=== PATIENT | male | born 1995 | race Two or more races ===

== ENCOUNTER 2020-02-02 20:11 | Emergency (ER) | payer MEDICAID, SELFPAY ==
[2020-02-02 20:41] VITALS: BP 143/82; PULSE 80; RESP 15; TEMP 36.8; O2SAT 100; BMI 26.1
--- NOTE | 2020-02-02 20:54 | PC.NURSE ---
MD AT BEDSIDE FOR EVALUATION
--- NOTE | 2020-02-02 21:00 | ED.GENADULT ---
HPI - General Adult General Chief complaint: General Medical Stated complaint: HYPERTENSION Time Seen by Provider: 02/02/20 20:59 Source: patient Mode of arrival: ambulatory Limitations: no limitations History of Present Illness HPI narrative: This is a 24-year-old male who presents with over 1 year of intermittent left upper extremity tingling that he states radiates from his neck and is not associated with any traumatic event. He denies any dizziness, headaches, ear pain, dysphagia, shortness of breath, fevers, chills, weakness. Related Data Allergies Allergy/AdvReac Type Severity Reaction Status Date / Time divalproex sodium Allergy Unknown UNKNOWN Unverified 01/14/20 17:06 [From [facility]] Review of Systems Review of Systems: Pertinent positives and negatives as stated in the HPI. GEN: no fevers, chills, fatigue HEENT: no nasal congestion, sore throat, ear pain NEURO: no headache, dizziness, focal weakness PULM: no cough, shortness of breath CV: no chest pain, palpitations, LE edema ABD: no abdominal pain, nausea, vomiting, diarrhea : no dysuria, urgency, frequency SKIN: no rash ROS otherwise negative x 10 PMFSH Past Medical History Source: nursing notes reviewed Medical History No known health problems Surgical History Hx of eye surgery Social History Social History Alcohol intake: never Smoking Status: Never smoker Use of substances other than those prescribed or required for medical reasons: No Advance Directives: No Advance Directives Information Provided: Yes Physical Exam Vital Signs and I&O and Narrative: Vital Signs and I&O: Vital Signs Temp 98.2 F 02/02/20 20:41 Pulse 84 02/03/20 00:14 Resp 15 02/03/20 00:14 BP 146/82 H 02/03/20 00:14 Pulse Ox 98 02/03/20 00:14 Intake & Output 02/02/20 02/02/20 02/03/20 06:59 18:59 06:59 Weight 99.79 kg Body Mass Index 26.1 VITAL SIGNS: Reviewed. GENERAL: Well developed, well nourished, in no acute distress. HEAD: Normocephalic/atraumatic EYES: PERRLA, EOMI intact without pain, no nystagmus/pallor/icterus noted EARS: Ext canals without abnormality, TMs non-bulging and non-erythematous NOSE: Nares patent bilateral OROPHARYNX: no oral lesions noted, posterior pharynx clear and non-erythematous without noted tonsillar enlargement/erythema/exudates NECK: Supple, no adenopathy, Spurling's + LUNGS: Normal breath sounds. No adventitious sounds or accessory muscle use. SpO2<100> CARDIOVASCULAR: Regular rate and rhythm without noted murmurs, no JVD or lower extremity edema. ABDOMEN: Soft, non-tender, non-distended with bowel sounds. No rigidity. No guarding. No palpable masses or hernias noted MUSCULOSKELETAL: No tenderness, deformities, or effusions noted on gross inspection; LUE: fROM at shoulder/elbow with neurovascular intact distally EXTREMITIES: No cyanosis, clubbing or edema. SKIN: Inspection of the skin reveals no rashes, ulcerations, jaundice, pallor, or petechiae. NEUROLOGIC: Alert and oriented x 3. Strength and sensation to light touch were grossly intact x 4. Course Course Course Narrative: This is a 24-year-old male with history and clinical presentation most consistent with likely cervical radiculopathy or some form of neuropathy. After all investigations were completed it was noted that there were no acute findings which includes a negative chest x-ray. All results and findings were discussed with the patient bedside and he was strongly encouraged to follow-up with his primary care provider for further evaluation of the chronic symptoms. Medical Decision Making Lab Data Result diagrams: 02/02/20 22:27 02/02/20 22:27 Labs: Lab Results 02/02/20 02/02/20 Range/Units 22:27 22:27 WBC 9.5 (4.8-10.8) X10*3/uL RBC 5.54 (4.60-5.80) X10*6/uL Hgb 16.0 (14.0-18.0) g/dl Hct 47.2 (42-52) % MCV 85.2 (80-98) fL MCH 28.9 (27.0-33.0) pg MCHC 33.9 (31.0-36.0) g/dl RDW 11.9 (11.0-16.0) % Plt Count 286 (160-400) X10*3/uL MPV 10.1 (9.4-12.4) fL Immature Gran % (Auto) 0.1 (0.0-0.4) % Neut % (Auto) 62.6 (45-73) % Lymph % (Auto) 29.0 (20-40) % Taney % (Auto) 6.3 (2-11) % Eos % (Auto) 1.2 (0-4) % Baso % (Auto) 0.8 (0-2) % Neut # (Auto) 6.0 (2.0-8.3) X10*3/uL Lymph # (Auto) 2.8 (1.2-4.9) X10*3/uL Taney # (Auto) 0.6 (0.1-1.2) X10*3/uL Eos # (Auto) 0.1 (0.0-0.4) X10*3/uL Baso # (Auto) 0.1 (0.0-0.2) X10*3/uL Abs Immat Gran (auto) 0.01 (0.00-0.03) X10*3/uL Absolute Nucleated RBC 0.000 (0.0-0.012) X10*3/uL Nucleated RBC % (auto) 0.0 (0.0-0.2) /100WBC Sodium 140 (135-145) mmol/L Potassium 5.0 (3.3-5.1) mmol/l Chloride 104 (96-108) mmol/L Carbon Dioxide 28 (22-29) mmol/L Anion Gap 13 (12-20) BUN 21 H (9-16) mg/dL Creatinine 0.79 (0.5-1.4) mg/dL Estim Creat Clear Calc 178.5 Estimated GFR > 60 Random Glucose 82 (60-115) mg/dL Calcium 9.6 (8.4-10.2) mg/dL Total Bilirubin 0.9 (0.0-1.0) mg/dL AST 15 (5-37) U/L ALT 12 (0-40) U/L Alkaline Phosphatase 84 (39-117) U/L Total Protein 7.9 (6.5-8.0) g/dL Albumin 5.0 (3.5-5.0) g/dL TSH 1.00 (0.32-4.0) mIU/mL Discharge Plan Discharge Clinical Impression: Radiculopathy Qualifiers: Spinal region: cervical Qualified Code(s): M54.12 - Radiculopathy, cervical region Patient Disposition: Home, Self-Care Instructions: Cervical Radiculopathy (ED) Additional Instructions: 1. Tylenol 1000 mg, orally, every 6 hours as needed for symptom control. Do not exceed 4000 mg within 24 hours. 2. Ibuprofen 400 mg, orally with milk or food, every 6 hours as needed for symptom control. 3. You should follow-up with your primary care provider by calling the office tomorrow to set up an appointment for further outpatient evaluation and management. The patient and/or family acknowledge understanding of results (as applicable), diagnosis, treatment plan, need for follow up, and symptoms that should prompt a return to the emergency room. Referrals: Nuno Avendano MD [Primary Care Provider] - 2 days (Further evaluation and management of presumptive cervical radiculopathy) Interventions: ED Discharge Assessment Last Done: 02/03/20 00:08 Discharge Date/Time: 02/03/20 00:16
--- NOTE | 2020-02-02 21:01 | XR_ITS ---
EXAMINATION: XR CHEST CLINICAL INFORMATION: Cough COMPARISON: None TECHNIQUE: 2 views of the chest were obtained. FINDINGS: No significant abnormality is noted involving the heart, lungs, mediastinum, bony thorax or soft tissues. IMPRESSION: Unremarkable examination.
[2020-02-02 22:32] LABS: Basophils Absolute Auto 0.1 X10*3/uL (0.0-0.2); Basophils Percent Auto 0.8 % (0-2); Eosinophils Absolute Auto 0.1 X10*3/uL (0.0-0.4); Eosinophils Percent Auto 1.2 % (0-4); Hematocrit 47.2 % (42-52); Imm Gran Abs Auto 0.01 X10*3/uL (0.00-0.03); Imm Gran Pct Auto 0.1 % (0.0-0.4); Lymphocytes Absolute Auto 2.8 X10*3/uL (1.2-4.9); MANUAL DIFF FLAG NO; Mean Corpuscular HGB Conc 33.9 g/dl (31.0-36.0); Mean Corpuscular Hemoglobin 28.9 pg (27.0-33.0); Mean Corpuscular Volume 85.2 fL (80-98); Mean Platelet Volume 10.1 fL (9.4-12.4); Monocytes Absolute Auto 0.6 X10*3/uL (0.1-1.2); Monocytes Percent Auto 6.3 % (2-11); Neutrophils Percent Auto 62.6 % (45-73); Platelet Count 286 X10*3/uL (160-400); Red Blood Count 5.54 X10*6/uL (4.60-5.80); Red Cell Distribution Width 11.9 % (11.0-16.0); White Blood Count 9.5 X10*3/uL (4.8-10.8)
[2020-02-02 23:38] LABS: Alanine Aminotransferase 12 U/L (0-40); Alkaline Phosphatase 84 U/L (39-117); Anion Gap 13 (12-20); Aspartate Amino Transferase 15 U/L (5-37); Bilirubin Total 0.9 mg/dL (0.0-1.0); Blood Urea Nitrogen 21 mg/dL (9-16); Calcium 9.6 mg/dL (8.4-10.2); Carbon Dioxide 28 mmol/L (22-29); Chloride 104 mmol/L (96-108); Creatinine Clr Calc Pharmacy 178.5; Estimated Glomerular Filt Rate > 60; Glucose Random 82 mg/dL (60-115); Sodium 140 mmol/L (135-145); Total Protein 7.9 g/dL (6.5-8.0)
--- NOTE | 2020-02-02 23:40 | PC.NURSE ---
PATIENT AWAITING LAB RESULTS WELL ED PROVIDER RE-EVALUATION
[2020-02-03 00:14] VITALS: BP 146/82; PULSE 84; RESP 15; O2SAT 98
== END 2020-02-03 00:16 | disposition home or self-care (01) ==
PROVIDERS: Emergency Provider Student in an Organized Health Care Education/Training Program; PCP Internal Medicine
DX: M54.12 Radiculopathy, cervical region (principal); M54.2 Cervicalgia; I10 Essential (primary) hypertension; Z79.899 Other long term (current) drug therapy
CPT/HCPCS: 36415; 71046; 80053; 84443; 85025; 99283; 99284

== ENCOUNTER → 2020-03-10 13:55 | Outpatient (BNVA) | payer MEDICAID, SELFPAY | PROVIDERS: PCP Internal Medicine; Visit Provider Urology | DX: Z76.89 Persons encountering health services in other specified circumstances (principal) | CPT/HCPCS: 99202 ==

== ENCOUNTER 2020-03-22 07:29 | Outpatient (REF) | payer MEDICAID, SELFPAY ==
[2020-03-22 07:47] VITALS: BP 152/52; PULSE 72; RESP 16; TEMP 37; O2SAT 100
[2020-03-22 07:48] VITALS: BMI 26.6
--- NOTE | 2020-03-22 08:31 | P.HPSUR_ITS ---
Pre-Procedural Eval Section A The patient is an INPATIENT: No Changes since office visit: No Cold of Flu in the past 2 weeks, No New Medical Problems, No Changes in Medication and No Patient answered all questions The History & Physical has been completed within 30 days and I have reviewed it.: Yes Section B Chief Complaint: Epidermal Cyst Allergies: Allergies Allergy/AdvReac Type Severity Reaction Status Date / Time divalproex sodium Allergy Unknown UNKNOWN Unverified 01/14/20 17:06 [From [facility]] Plan Patient has been examined and remains a candidate for the planned procedure
--- NOTE | 2020-03-22 08:32 | PM.OP ---
Brief Operative Note Date of Service: 03/22/20 Pre-op diagnosis: penile inclusion cyst Post-op diagnosis: same Procedure: removal of cyst contents Surgeon: Jose Cavazos MD Anesthesia: local Estimated blood loss (mL): 0 Pathology: other Condition: stable Disposition: same day
[2020-03-22 08:39] VITALS: BP 149/97; PULSE 68; RESP 16; O2SAT 98
--- NOTE | 2020-03-22 08:39 | W.PM.OPN ---
Operative Note Operative Note Date of Service: 03/22/20 Narrative: PreOperative Diagnosis: Penile inclusion cyst Post Operative Diagnosis: Penile inclusion cyst Procedure: Removal of cyst greater than 1 cm Surgeon: Dr Jose Cavazos Anesthesia: Local Indications for procedure: Penile inclusion cyst in 24-year-old male. Procedure: After informed consent was verified the patient was brought to the operating room and placed in a supine position. Local anesthetic with epi injected over the inclusion cyst Small incision made with scalpel Calcification delivered along with smegma. It appears this is a broad penile skin bridge. Unable to drain. Approximately 1 cm removed Tolerated procedure well Pathology: Sent Drains: None
== END 2020-03-22 07:30 | disposition home or self-care (01) ==
LOC: HO.MS 07:29
PROVIDERS: PCP Internal Medicine; Visit Provider Urology
PROC: (CPT 11422; principal; 2020-03-22 08:00)
DX: L72.0 Epidermal cyst (principal)
CPT/HCPCS: 11422; 88304

== ENCOUNTER → 2020-04-27 12:45 | Outpatient (BNVA) | payer MEDICAID, SELFPAY | PROVIDERS: PCP Internal Medicine; Visit Provider Urology | DX: N48.89 Other specified disorders of penis (principal) | CPT/HCPCS: 99212 ==

== ENCOUNTER 2020-05-16 06:02 | Day surgery (SDC) | payer MEDICAID, SELFPAY ==
[2020-05-10 10:28] VITALS: BMI 26.1
--- NOTE | 2020-05-13 12:11 | P.CONAN_ITS ---
Documented by User: Angelica Prince 05/13/20 12:11 HPI - Anesthesia Eval Consult details Narrative: 24yo M for Penile Adhesions Lysis [facility] Past Medical History Medical History Hx of gynecomastia Surgical History Surgical History Hx of excision of mass Hx of excision of mass Hx of eye surgery Social History Social History Alcohol intake: never Smoking Status: Never smoker Use of substances other than those prescribed or required for medical reasons: No Advance Directives Information Provided: No Recently lost weight without trying: No Meds Allergies Allergy/AdvReac Type Severity Reaction Status Date / Time divalproex sodium Allergy Intermediate UNKNOWN Verified 05/16/20 06:32 [From [facility]] Home Medications Medication Instructions Recorded Confirmed Type No Known Home Meds 05/10/20 05/10/20 History Exam Exam Date and Time: May 13, 2020 1211 Height,Weight and Vital Signs: Height 6 ft 5 in Weight 99.79 kg Assessment and Plan Assessment Anesthesia Assessment: Chart Reviewed Documented by User: Ciarra Weeks 05/16/20 07:56 [facility] Past Medical History Medical History Hx of gynecomastia Surgical History Surgical History Hx of excision of mass Hx of excision of mass Hx of eye surgery Social History Social History Alcohol intake: never Smoking Status: Never smoker Use of substances other than those prescribed or required for medical reasons: No Advance Directives Information Provided: No Recently lost weight without trying: No Meds Allergies Allergy/AdvReac Type Severity Reaction Status Date / Time divalproex sodium Allergy Intermediate UNKNOWN Verified 05/16/20 06:32 [From [facility]] Home Medications Medication Instructions Recorded Confirmed Type No Known Home Meds 05/10/20 05/10/20 History Exam Airway Mallampati Class: II TM Dist: >3cm Neck ROM: Full Assessment and Plan Assessment Anesthesia Assessment: Anesthesia Plan Discussed and Chart Reviewed Final Anesthetic Review NPO: Yes ASA Class: I Final Preanesthetic Review: No Changes in Pt Med Stat, Meds/Allgs Chart Reviewed, Consent Obtained/Reviewed and Anes Risks/Benef Reviewed Patient Risk: Low Procedure Risk: Low Assessment/Block/Sedation in SS: Assess/Block/Sedation-SS Anesthetic Plan Anesthetic Plan: GA Disposition: Standard PACU
[2020-05-16 06:34] VITALS: BP 135/79; PULSE 61; RESP 18; TEMP 36.4; O2SAT 100
[2020-05-16] MEDS: ceFAZolin Sodium/Dextrose,Iso 2 GM/50 ML PIGGYBACK IV (06:43)
[2020-05-16] MEDS: Lactated Ringers 1,000 ML 100 ML IVCONT (06:43)
--- NOTE | 2020-05-16 07:43 | MHC.SHP ---
Pre-Procedural Eval Section B Chief Complaint: penis disorder Details of Present Illness: penile lysis adhesions Relevant Family History (Specify if Yes): No Relevant Social History: None Present Medications: None Medical History: No relevant PMH Allergies: Allergies Allergy/AdvReac Type Severity Reaction Status Date / Time divalproex sodium Allergy Intermediate UNKNOWN Verified 05/16/20 06:32 [From [facility]] Review of Systems Sugical H&P ROS: Negative: Constitution, Cardiovascular, Respiratory, Neurological, Psychiatric, Hem-Onc, Allergic/Immunologic, Gastrointestinal, Genitourinary, Musculoskeletal, Integumentary, Endocrine and Eyes/Ears/Nose/Throat Exam Surgical H&P Exam: Normal: HEENT, Normal: Heart, Normal: Lungs, Normal: Extremities, Normal: Abdomen, Normal: Skin and Normal: Neurological Plan Diagnosis/Plan: Unchanged I have reviewed the history and physical and performed a pertinent physical examination on my patient. No changes have occurred unless specified. Lysis of adhesions
--- NOTE | 2020-05-16 09:41 | PM.OP ---
Brief Operative Note Date of Service: 05/16/20 Pre-op diagnosis: penile adhesions Post-op diagnosis: same Procedure: lysis of penile adhesions Surgeon: Jose Cavazos MD Anesthesia: MAC Estimated blood loss (mL): 0 Pathology: none sent Condition: stable Disposition: same day
--- NOTE | 2020-05-16 09:42 | P.OP_ITS ---
Operative Note Operative Note Date of Service: 05/16/20 Narrative: PreOperative Diagnosis: Penile adhesions Post Operative Diagnosis: Penile adhesions dorsal Procedure: Lysis of penile adhesions Surgeon: Dr Jose Cavazos Anesthesia: Sedation Indications for procedure: This is a 24-year-old male. Had presented with discharge from the sulcus of his penis on the dorsum. It appeared to be a sebaceous cyst. At initial procedure with discovered to have an extensive penile adhesion across the dorsal aspect of penis with skin in oral forming a non discharging tunnel. Sent today for correction of the penile skin bridge Procedure: After informed consent was verified the patient was brought to the operating room and placed in a supine position. anesthesia was administered per protocol. The patient was prepped and draped in sterile fashion. Safety pause time-out performed. Antibiotics have been given. A skin bridge was identified. A probe was placed. It was blocked at the right hand end. Using sharp small with CIS is this skin bridge was divided. The proximal portion was identified and cleaned. The edges were recent own with a interrupted 4-0 chromic. The sulcus edge had a few areas of ooze controlled with cautery. Decision was made not to suture. Dressing was placed consisting of bacitracin, Huseyin, Coban. Should remain for 48 hours He tolerated procedure well was transferred in stable condition to [facility]. Pathology: None Drains: Known
[2020-05-16 09:45] VITALS: BP 109/53; PULSE 54; RESP 12; TEMP 36.1; O2SAT 98
[2020-05-16 10:00] VITALS: BP 123/68; PULSE 59; RESP 16; TEMP 36.2; O2SAT 99
--- NOTE | 2020-05-16 10:18 | HO.POSTANES ---
Post Anesthesia Evaluation Post Anesthesia Evaluation Vital Signs: Vital Signs Temp Pulse Resp BP Pulse Ox 05/16/20 10:00 97.1 F 59 16 123/68 99 05/16/20 09:45 96.9 F 54 12 109/53 L 98 05/16/20 06:34 97.6 F 61 18 135/79 100 Anesthesia: Monitored Mental Status: Awake Pain Control: Satisfactory Nausea/Vomiting: None Hydration: Adequate Anesthesia-Related Issues: No Anes. Related Issues
== END 2020-05-16 10:26 | disposition home or self-care (01) ==
PROVIDERS: PCP Internal Medicine; Visit Provider Urology
PROC: (CPT 54162; principal; 2020-05-16 08:10)
DX: N47.5 Adhesions of prepuce and glans penis (principal); Z87.438 Personal history of other diseases of male genital organs; Z98.890 Other specified postprocedural states; Z88.8 Allergy status to other drugs, medicaments and biological substances
CPT/HCPCS: 54162; J0690; J2250; J2405; J3010

== ENCOUNTER 2020-05-24 22:07 | Emergency (ER) | payer MEDICAID, SELFPAY ==
[2020-05-24 22:23] VITALS: BP 159/98; PULSE 120; RESP 18; TEMP 36.7; O2SAT 100; BMI 31.4
--- NOTE | 2020-05-24 22:36 | ED.GENADULT ---
HPI - General Adult General Chief complaint: Anxiety Stated complaint: STROKE? Time Seen by Provider: 05/24/20 22:31 Source: patient Mode of arrival: ambulatory Limitations: other (Patient is a vague historian.) History of Present Illness HPI narrative: This is a 24-year-old male according to the old record patient is healthy recently had urological procedure by Dr. Cavazos on exam there were who walked into the emergency room claiming that he is having stroke, patient refused to talk to triage nurse patient was triaged to room 21, when I get to the room patient is vague historian, talking in very low voice, easily get aggravated when he was asked to speak up so we can hear him, patient is covering his face with his hands and at the moment refusing to talk, because patient used offensive language security guards kept on the outside of the room, overall felt patient is acting psychotic, will move the patient to [facility] and give the patient a chance to calm down I will re-evaluate when patient is ready to talk. 11:00 patient was removed to the pod trying to give him quite room, it seem like voices, lytes, noises aggravate the patient. Patient is now talking to the staff and myself but refusing to give detailed history and why he is here. Give the patient sometimes to come down may need to use sedative. Related Data Previous Rx's Medication Instructions Recorded tramadol 50 mg PO Q6H PRN #14 tab 05/16/20 Allergies Allergy/AdvReac Type Severity Reaction Status Date / Time divalproex sodium Allergy Intermediate UNKNOWN Verified 05/16/20 06:32 [From [facility]] Review of Systems Review of Systems: Yes Unobtainable due to mental status PMFSH Past Medical History Medical History (Updated 05/24/20 @ 23:08 by Den Koch) Asperger's disorder Bipolar disorder Hx of gynecomastia Surgical History Hx of excision of mass Hx of excision of mass Hx of eye surgery Social History Social History Alcohol intake: never Smoking Status: Never smoker Advance Directives: No Advance Directives Information Provided: Yes Physical Exam Vital Signs: Vital Signs: Last Vital Signs Temp 98.1 F 05/24/20 22:23 Pulse 98 05/25/20 01:30 Resp 17 05/25/20 02:15 BP 127/76 05/25/20 01:30 Pulse Ox 97 05/25/20 01:30 Body Mass Index 31.4 Vital signs have been reviewed as normal and appeared to be correct. Blood pressure: Hypertensive. Heart rate: Tachycardic, Respiration rate normal. Temperature normal. Oxygen saturation normal. Const: Other: Well kempt, sitting in the chair covering his face with his hands, no eye contact, voice and to noise aggravate the patient. Patient is not cooperative. No physical exam at this point try to reassess later. 2:00 am Appearance: No acute distress. Head: Normal external exam. Normocephalic. Atraumatic. No Redd signs noted. No raccoon eyes noted Eyes: PERRLA. EOMI. Conjunctiva and sclera normal. Eyelids normal. ENT: EAC normal. TM's Normal. Pharynx normal. Uvula midline. Moist mucous membranes. No trismus noted. No drooling noted. No muffled voice noted. Neck: Normal inspection. Neck supple. FROM. No adenopathy. Thyroid Normal. No meningeal signs. No neck mass noted. CVS: Normal heart rate and rhythm. Heart sound normal. No murmurs noted. Pulses normal throughout. Respiratory: No respiratory distress. Painless inspiration. Breath sounds normal. No wheezes/rales/rhonchi noted. Chest nontender. No accessory muscle usage noted or decreased air movement noted. Abdomen: Soft and nontender. Bowel sounds normal in all 4 quadrants. No distention noted. No organomegaly noted. No visible injury noted. Back: No CVA tenderness. Full range of motion noted. Skin: Skin warm and dry. Normal skin color. Normal skin turgor. No rashes/lesions/lacerations noted. Extremities: No lower extremity edema. Neuro/ Psych: No motor deficit. No sensory deficit. Reflexes normal. Poor eye contact, tangential speech, no SI, no HI. Course Reevaluation(s) Reevaluation #1: Patient is not cooperative, with time of aggression, chemical restraining with 5 mg of Haldol IM/2 mg of Ativan IM was given. Will issue section 12. And get [facility] in evaluation. Time: :22 Reevaluation #2: This is 1 hour [id number] evaluation after chemical restraint. Patient now is leaving, vital signs were checked by MD appear stable, Time: 02:01 Medical Decision Making Lab Data Labs: Lab Results 05/25/20 05/25/20 Range/Units 00:54 00:54 Urine Color YELLOW Urine Appearance CLEAR Urine pH 5.5 (5.0-8.0) Ur Specific Dell[place] >= 1.030 H (1.005-1.025) Urine Protein TRACE (NEG-TRACE) MG/DL Urine Glucose (UA) NEG (NEG) MG/DL Urine Ketones NEG (NEG) MG/DL Urine Blood TRACE (NEG) Urine Nitrite NEG (NEG) Ur Leukocyte Esterase NEG (NEG) Urine RBC 1-4 (0) /HPF Urine WBC 1-4 (0-4) /HPF Ur Squamous Epith Cells TRACE /LPF Urine Bacteria TRACE /LPF Urine Mucus 1+ /LPF Urine Opiates Screen Not Detected (Not Detect) Ur Barbiturates Screen Not Detected (Not Detect) Ur Phencyclidine Scrn Not Detected (Not Detect) Ur Amphetamines Screen Not Detected (Not Detect) U Benzodiazepines Scrn Not Detected (Not Detect) Urine Cocaine Screen Not Detected (Not Detect) U Marijuana (THC) Screen Not Detected (Not Detect) Discharge Plan Discharge Prescriptions: No Action tramadol 50 mg tablet 50 mg PO Q6H PRN (Reason: pain (scale score 4-6)) Qty: 14 RF: 0
--- NOTE | 2020-05-24 23:08 | PC.NURSE ---
pt mother Kary phone number [phone]
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
[2020-05-25] VITALS (7 sets, daily range): BP systolic 127–136; BP diastolic 76–79; PULSE 80–98; RESP 17–19; TEMP 36.8; O2SAT 97–100
--- NOTE | 2020-05-25 00:39 | PC.NURSE ---
Patient after long therapeutic conversation and with security support, agreed to the knife changer process, provided urine sample, [facility] faxed/called/spoke with Abigail/confirmed receipt of referral, care team is with patient currently, will continue to monitor.
[2020-05-25] MEDS: LORazepam 2 MG/ML VIAL IM (01:15)
[2020-05-25] MEDS: diphenhydrAMINE HCL 50 MG/ML VIAL 25 MG IM (01:15)
[2020-05-25] MEDS: Haloperidol Lactate 5 MG/ML VIAL IM (01:16)
[2020-05-25 01:20] LABS: Glucose Urine UA NEG (NEG); Leukocyte Esterase Urine NEG (NEG); Nitrite Urine NEG (NEG); PH 5.5 (5.0-8.0); Specific Gravity - Urine >= 1.030 (1.005-1.025); Urine Blood TRACE (NEG); Urine Ketones NEG (NEG); Urine Protein TRACE MG/DL (NEG-TRACE)
[2020-05-25 01:22] LABS: Appearance Urine CLEAR; Color Urine YELLOW
[2020-05-25 01:35] LABS: Bacteria Urine TRACE /LPF; Mucus Urine 1+ /LPF; Squamous Epithelial Cell Urine TRACE /LPF
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
[2020-05-25 02:08] LABS: Amphetamine Screen Urine Not Detected (Not Detect); Barbiturates, Urine Not Detected (Not Detect); Benzodiazepines Screen Urine Not Detected (Not Detect); Cannabinoid Screen Urine Not Detected (Not Detect); Cocaine Screen Urine Not Detected (Not Detect); Opiate Screen Urine Not Detected (Not Detect); Phencyclidine Screen Urine Not Detected (Not Detect)
--- NOTE | 2020-05-25 09:14 | PC.NURSE ---
PT AWAKE AND ASKING TO LEAVE AND TO HAVE BELONINGS RETURNED TO HIM, SECT 12 EXPLAINED AND INFORMED THAT HE COULD NOT LEAVE AND THAT WE CANNOT GIVE HIS CLOTHES BACK, PT THEN CALLED HIS MOTHER TO PICK HIM UP IN 5 MIN, SHE CALLED US TO CONFIRM BEFORE COMING, FRANSICO VP STRATEGIC PLANNING TO POD TO EXPLAIN, [facility] CONTACTED TO GET ETA AND THEY STATE AROUND 12 OR A LITTLE AFTER . THIS WAS RELAYED TO THE PT, PT VOICED DISPLEASURE W BEING HELD AGAINST HIS WILL
--- NOTE | 2020-05-25 11:15 | MHC.CARE ---
9:40 am, call to [facility] about assessing this patient, spoke to assembly room supervisor Olu who confirmed that a clinician cannot get to the hospital until at least noon or later. CARE Team will evaluate the patient if [facility] calls [facility] and follows the necessary steps for deferring cases. He agreed to this plan and will call the insurance company. Olu called back and reported that Alvina at [facility] was notified. CARE Team met with patient who is clear for discharge home, written assessment to follow.
--- NOTE | 2020-05-25 11:53 | PM.PSYCN ---
History of Present Illness Date of Service: 05/25/2020 Chief Complaint: STROKE? Reason for Consult: med eval Requesting physician: Oleksandr Callahan Discussed with referring provider: No Sources of Information: patient interviewed and chart reviewed Additional Sources of Information: collateral from mother, Kary [facility] Narrative: Patient is a 24 year old male with reported history of autism spectrum disorder, currently in the Behavioral area of the emergency department after presenting yesterday reporting he believed he was having a stroke. He was evaluated and medically cleared and transferred to the [facility] area. Per chart review it appears patient was very anxious, guarded, and difficult to engage. He was seen by the care team, please see that note for additional documentation. This morning he is much less anxious and asking to go home. This proposal lead writer spoke to patient's mother, Kary, for reports that patient has been quite stable for many years. She reports he was diagnosed with Asperger's at a young age and per her report also bipolar disorder. She states he lived at a residential program up until about 10 years ago when he moved back home, and has been doing very well since. She states he has not taken any medications for over 10 years, but he has been stable. 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 She reports that during the pandemic he has been isolative, keeping to himself, but his behaviors prior to presenting in the emergency department were completely brand new. She reports that Saturday of last week he had a surgery, she is unsure of the details of the surgery as she states he is very private. She also reports that he started taking a pain medication following the surgery but she is unsure what that is. Patient seen very briefly by this proposal lead writer in the Behavioral Health area of the ED, he was awake alert sitting at the edge of his bed and asking when he could go home. He denies any feelings of anxiety, thoughts of hurting himself or others, restating ?I just Wanna go home?. Past Psychiatric History: As reported in HPI Medical Evaluation Reviewed: Yes Review of Systems Constitutional: Reports as per [facility] and Reports no additional constitutional complaints PMFSH Medical History Asperger's disorder Bipolar disorder Hx of gynecomastia Surgical History Hx of excision of mass Hx of excision of mass Hx of eye surgery Diagnostics Vital Signs (24Hr): Vital Signs - 24 hr 05/24/20 22:23 05/25/20 01:15 05/25/20 01:30 Temperature 98.1 F Pulse Rate 120 H 98 Respiratory Rate 18 19 19 Blood Pressure 159/98 H 127/76 Pulse Oximetry 100 97 05/25/20 01:45 05/25/20 02:00 05/25/20 02:15 Temperature Pulse Rate Respiratory Rate 18 18 17 Blood Pressure Pulse Oximetry 05/25/20 06:00 05/25/20 09:01 Temperature 98.2 F Pulse Rate 80 Respiratory Rate 18 Blood Pressure 136/79 Pulse Oximetry 100 Body Mass Index 31.4 Labs Labs: Laboratory Results - last 48 hr 05/25/20 05/25/20 00:54 00:54 Urine Color YELLOW Urine Appearance CLEAR Urine pH 5.5 Ur Specific [place] >= 1.030 H Urine Protein TRACE Urine Glucose (UA) NEG Urine Ketones NEG Urine Blood TRACE Urine Nitrite NEG Ur Leukocyte Esterase NEG Urine RBC 1-4 Urine WBC 1-4 Ur Squamous Epith Cells TRACE Urine Bacteria TRACE Urine Mucus 1+ Urine Opiates Screen Not Detected Ur Barbiturates Screen Not Detected Ur Phencyclidine Scrn Not Detected Ur Amphetamines Screen Not Detected U Benzodiazepines Scrn Not Detected Urine Cocaine Screen Not Detected U Marijuana (THC) Screen Not Detected Mental Status Exam Mental Status Exam Patient Appearance: Well Grooomed Patient Orientation: Person, Place, Time and Situation Level of Consciousness: Awake and Alert Patient Behavior: Appropriate and Guarded Mood Description: Calm Affect Description: Calm Ability to Follow Directions: Excellent Speech Pattern: Clear Hallucinations: None Thought Process: Goal Oriented Thought Content: positive for Intact and positive for [place] Judgement: Fair Medications Allergies Allergies Allergy/AdvReac Type Severity Reaction Status Date / Time divalproex sodium Allergy Intermediate UNKNOWN Verified 05/16/20 06:32 [From [facility]] Assessment & Plan Assessment & Plan (1) Acute anxiety: Status: Acute Code(s): F41.9 - Anxiety disorder, unspecified Recommendations: Discussed case with care team, appears patient may have been experiencing symptoms of an acute anxiety attack possibly related to taking his pain medications which are new to him Has been appropriate, remained in behavioral control, and requesting to go home. Denies any thoughts of harming himself or others. No medication recommendations at this time Per care team patient also declined any referrals to behavioral health resources Greater than 50% of the session was spent on counseling and/or coordination of care
--- NOTE | 2020-05-28 11:30 | HO.PSYCHPN ---
Subjective Subjective Date of Service: 05/28/20 Reason For Visit: STROKE? Diagnostics Vital Signs (24Hr): Body Mass Index 31.4 Medications Allergies Allergies Allergy/AdvReac Type Severity Reaction Status Date / Time divalproex sodium Allergy Intermediate UNKNOWN Verified 05/16/20 06:32 [From [facility]] Assessment & Plan Greater than 50% of the session was spent on counseling and/or coordination of care
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
== END 2020-05-25 11:15 | disposition home or self-care (01) ==
PROVIDERS: Emergency Provider Emergency Medicine
DX: F41.9 Anxiety disorder, unspecified (principal); F84.5 Asperger's syndrome; F31.9 Bipolar disorder, unspecified; F43.10 Post-traumatic stress disorder, unspecified
CPT/HCPCS: 80307; 81001; 96372; 99284; 99285; J1200; J2060

== ENCOUNTER 2020-05-27 11:31 | Emergency (ER) | payer MEDICAID, SELFPAY ==
[2020-05-27 11:46] VITALS: BP 154/95; PULSE 74; RESP 18; TEMP 36.4; O2SAT 100; BMI 26.1
[2020-05-27 11:49] VITALS: BP 154/95; PULSE 74; RESP 18; TEMP 36.4; O2SAT 100
--- NOTE | 2020-05-27 12:14 | ED.PSYCH ---
HPI - Psych General Chief Complaint: Psychiatric Symptoms Stated Complaint: psych eval Time Seen by Provider: 05/27/20 12:04 Source: EMS Mode of arrival: ambulatory Limitations: no limitations History of Present Illness HPI Narrative: Patient is a 24-year-old male with a past medical history of Asperger's, bipolar who was just evaluated in this ED 2 days ago. He called EMS today to bring him to the emergency department because he would like to speak with crisis. He states Dr. Cavazos gave him some medication a couple of days ago, he is unsure of the name, but when he took the medication it made his left arm and the left side of his body go numb. He says he threw away the medication and has not taken in 2 days but still says he feels numb. He also states she is feeling like a sensory overload but denies SI or HI. He has no other physical complaints at this time besides the numbness. He cannot explain what he needs from os but is just asking for a psychiatric evaluation. Related Data Home Medications Medication Instructions Recorded Confirmed No Known Home Meds 05/27/20 05/27/20 Allergies Allergy/AdvReac Type Severity Reaction Status Date / Time divalproex sodium Allergy Intermediate UNKNOWN Verified 05/16/20 06:32 [From [facility]] Review of Systems Review of Systems: Yes all other systems are reviewed and are negative Neurologic: Denies Abnormal speech present PMFSH Past Medical History Medical History Asperger's disorder Bipolar disorder Hx of gynecomastia Surgical History Hx of excision of mass Hx of excision of mass Hx of eye surgery Social History Social History Alcohol intake: former Smoking Status: Never smoker Smoked in Last 30 Days: No Use of substances other than those prescribed or required for medical reasons: No Advance Directives: Yes Advance Directives Information Provided: Yes Advance Directives on File: No Physical Exam Vital Signs: Vital Signs: Last Vital Signs Temp 97.5 F 05/27/20 11:49 Pulse 74 05/27/20 11:49 Resp 18 05/27/20 11:49 BP 154/95 H 05/27/20 11:49 Pulse Ox 100 05/27/20 11:49 Body Mass Index 26.1 Const: General: cooperative, healthy appearing, comfortable, no acute distress and well developed Nutritional Appearance: average body habitus and well nourished Orientation/consciousness: patient oriented x3 HENMT: Head: Yes normal to inspection Ears: hearing grossly normal bilaterally General nose exam: Normal external nose present Face and sinus: Yes normal facial exam and Yes face symmetric Mouth: Normal oral and palatal mucosa present Eyes: General: appearance normal, both eyes and all related structures EOM: EOMs intact bilaterally Neck: Neck: Yes normal visual inspection, Yes full ROM, Yes trachea midline and Yes supple Resp: Effort & Inspection: normal respiratory effort and able to speak in complete sentences Skin: General skin exam: no rashes or lesions noted Neuro: General: patient oriented x3 Cognition (Neuro): normal cognition Speech: No Abnormal speech present Extrem: General: Yes normal to inspection Psych: Appearance: well kempt Speech and movement: Clear speech present Affect: Blunted affect present Attitude: cooperative Thought process: Normal thought process present Thought content: Normal thought content present Insight: Good insight present (Psych) Judgement: Good judgement present (Psych) Course Course Course Narrative: 24-year-old male with past medical history of Asperger's and bipolar requesting a psychiatric evaluation. Physical exam reveals no abnormalities in patient has no other complaints besides numbness in his left arm that he attributes as a side effect to the medication he took 2 days ago. Unknown medication. Will request care team consult 1pm care team consult done, they recommended a crisis consult as they spoke with the patient's mother and said he has not been eating and drinking normally, they feel he also has disorganized thoughts, he is also not on meds for bipolar or Asperger's. Crisis consult placed 3pm care team says patient will get faster placement if he goes directly to [facility] on himself. Care team spoke with patient's mother, she is happy to take him up and bring him there herself. [facility] will then place him at an inpatient facility if needed, and he will come back to the ED for that if necessary. Will discharge patient to the care of his mother. MDM - Psych Restraints Face to Face Assessment: Face to Face Assessment: Reaction To: [] Medical Condition: [] Behavioral State: [] Continued Need: [] Discharge Plan Discharge Clinical Impression: Acute psychosis Bipolar disorder Qualifiers: Active/Remission status: currently active Current bipolar episode type: depressed Current episode severity: mild Qualified Code(s): F31.31 - Bipolar disorder, current episode depressed, mild Patient Disposition: Home, Self-Care Instructions: Brief Psychotic Disorder (ED) Additional Instructions: Discharging patient to the care of his mother so she made drive him directly to [facility] to seek placement at an inpatient facility. Prescriptions: No Action No Known Home Meds RF: 0 Referrals: Nuno Avendano MD [Primary Care Provider] - 2 days
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
--- NOTE | 2020-05-27 13:43 | PC.NURSE ---
[facility] faxed and called.
--- NOTE | 2020-05-27 13:57 | PC.NURSE ---
PT appears to be responding internally, talking and laughing while alone in his room.
== END 2020-05-27 15:56 | disposition home or self-care (01) ==
PROVIDERS: Emergency Provider Emergency Medicine; PCP Internal Medicine
DX: F31.31 Bipolar disorder, current episode depressed, mild (principal); Z79.899 Other long term (current) drug therapy
CPT/HCPCS: 99284; 99285

== ENCOUNTER 2020-05-27 18:41 | Inpatient (IN) | payer OTHER, MEDICAID, SELFPAY ==
[2020-05-27 18:49] VITALS: RESP 18; BMI 26.1
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
[2020-05-27 21:14] VITALS: BP 134/85; PULSE 87; RESP 18; TEMP 36.8; O2SAT 99
[2020-05-27] MEDS: LORazepam 1 MG TABLET 2 MG PO (21:22)
[2020-05-27] MEDS: diphenhydrAMINE HCL 25 MG TABLET 50 MG PO (21:22)
[2020-05-27] MEDS: HaloperidoL 5 MG TABLET PO (21:22)
--- NOTE | 2020-05-27 21:30 | PC.NURSE ---
Patient psychotic, hyper-sexual, intrusive, disruptive, little to no redirect-ability, provider notified/ordered Ativan 2 mg tablet, Benadryl 50 mg tablet, and Haldol 5 mg tablet, patient accepted with little prompting effort, patient needs continuos redirection, will continue to monitor.
--- NOTE | 2020-05-27 22:53 | PC.NURSE ---
Patient currently in his room, wide awake, continuously pushing call light, needs continuos redirection and supervision, making sexually inappropriate comments, will continue to monitor.
--- NOTE | 2020-05-28 07:13 | PC.NURSE ---
Report received from SANDRA Long. Pt resting, resp unlabored.
--- NOTE | 2020-05-28 09:11 | PC.NURSE ---
Pt alert, appears disoriented, requiring re-orientation.
[2020-05-28 09:58] LABS: IDNOW Serial# 9DD0AD1C
[2020-05-28 09:59] LABS: COVID-19 Test Negative (Negative)
[2020-05-28 10:13] VITALS: BP 123/69; PULSE 97; TEMP 36.7; O2SAT 100
--- NOTE | 2020-05-28 10:15 | PC.NURSE ---
Consult called to [facility].
[2020-05-28 10:16] LABS: MANUAL DIFF FLAG NO
--- NOTE | 2020-05-28 10:17 | PC.NURSE ---
[facility] in to evaluate
[2020-05-28 10:18] LABS: Basophils Absolute Auto 0.1 X10*3/uL (0.0-0.2); Basophils Percent Auto 0.6 % (0-2); Eosinophils Absolute Auto 0.1 X10*3/uL (0.0-0.4); Eosinophils Percent Auto 0.9 % (0-4); Hematocrit 50.8 % (42-52); Hemoglobin 17.2 g/dl (14.0-18.0); Imm Gran Abs Auto 0.01 X10*3/uL (0.00-0.03); Imm Gran Pct Auto 0.1 % (0.0-0.4); Lymphocytes Absolute Auto 1.6 X10*3/uL (1.2-4.9); Lymphocytes Percent Auto 19.6 % (20-40); Mean Corpuscular HGB Conc 33.9 g/dl (31.0-36.0); Mean Corpuscular Hemoglobin 28.8 pg (27.0-33.0); Mean Corpuscular Volume 84.9 fL (80-98); Mean Platelet Volume 10.1 fL (9.4-12.4); Monocytes Absolute Auto 0.5 X10*3/uL (0.1-1.2); Monocytes Percent Auto 6.5 % (2-11); Neutrophils Absolute Auto 5.8 X10*3/uL (2.0-8.3); Neutrophils Percent Auto 72.3 % (45-73); Platelet Count 325 X10*3/uL (160-400); Red Blood Count 5.98 X10*6/uL (4.60-5.80); Red Cell Distribution Width 12.5 % (11.0-16.0)
[2020-05-28 10:48] LABS: Ethanol < 10 mg/dL
[2020-05-28 10:52] LABS: Alanine Aminotransferase 27 U/L (0-40); Albumin Level 4.9 g/dL (3.5-5.0); Alkaline Phosphatase 86 U/L (39-117); Anion Gap 13 (12-20); Aspartate Amino Transferase 32 U/L (5-37); Bilirubin Total 1.8 mg/dL (0.0-1.0); Blood Urea Nitrogen 17 mg/dL (9-16); Calcium 9.6 mg/dL (8.4-10.2); Carbon Dioxide 28 mmol/L (22-29); Chloride 104 mmol/L (96-108); Creatinine Clr Calc Pharmacy 148.5; Estimated Glomerular Filt Rate > 60; Glucose Random 93 mg/dL (60-115); Potassium 4.1 mmol/L (3.3-5.1); Sodium 141 mmol/L (135-145); Total Protein 7.9 g/dL (6.5-8.0)
--- NOTE | 2020-05-28 11:00 | PC.NURSE ---
Pt awake, alert. sitting at desk. Pt aware that urine sample is needed, but has been cooperative w/ care.
[2020-05-28 11:50] LABS: Glucose Urine UA NEG (NEG); Leukocyte Esterase Urine NEG (NEG); Nitrite Urine NEG (NEG); Specific Gravity - Urine 1.015 (1.005-1.025); Urine Blood NEG (NEG); Urine Ketones NEG (NEG); Urine Protein NEG (NEG-TRACE)
[2020-05-28 12:00] VITALS: RESP 20
[2020-05-28 12:08] LABS: Appearance Urine CLEAR; Color Urine YELLOW
--- NOTE | 2020-05-28 12:13 | PC.NURSE ---
Pt evaluated by Dr. Hale, medication recommendations reviewed.
[2020-05-28 12:14] LABS: Amphetamine Screen Urine Not Detected (Not Detect); Barbiturates, Urine Not Detected (Not Detect); Benzodiazepines Screen Urine Not Detected (Not Detect); Cannabinoid Screen Urine Not Detected (Not Detect); Cocaine Screen Urine Not Detected (Not Detect); Opiate Screen Urine Not Detected (Not Detect); Phencyclidine Screen Urine Not Detected (Not Detect)
[2020-05-28 12:18] LABS: RBC Urine 0 /HPF (0); WBC Urine 0 /HPF (0-4)
--- NOTE | 2020-05-28 12:23 | PC.NURSE ---
Pt resting in room, sitting at desk. Reports feeling a little overwhelmed w/ sensory stimulation. Pt states that he could use ear plugs. Care team notified, will look for ear plugs.
--- NOTE | 2020-05-28 13:20 | PC.NURSE ---
Pt sitting in room, at desk. Pt pleasant, conversing with staff when engaged.
--- NOTE | 2020-05-28 14:08 | PC.NURSE ---
Pt awake, sitting at desk, no concerns reported.
--- NOTE | 2020-05-28 15:17 | PC.NURSE ---
Per [facility] pt appearing fincreasingly anxious. In to evaluate, pt denies any concerns at this time and does not feel he needs medication for anxiety. Mother called, pt aware.
--- NOTE | 2020-05-28 15:38 | PC.NURSE ---
Report received. Pt using the bathroom at current. Calm and cooperative. No complaints at this time.
[2020-05-28] MEDS: LORazepam 1 MG TABLET PO (16:19)
--- NOTE | 2020-05-28 16:22 | PC.NURSE ---
Pt reporting anxiety, sensitivity to sound. Given ativan 1 MG PO, effect pending.
--- NOTE | 2020-05-28 17:07 | PC.NURSE ---
Ativan appears to have had some effect. Currently calm, resting in chair with head down on desk, lights off, door closed.
[2020-05-28 18:10] VITALS: BP 150/86; PULSE 97; RESP 18; TEMP 36.8; O2SAT 98
--- NOTE | 2020-05-28 19:04 | PC.NURSE ---
Patient sitting in his room, quietly, watching TV, no distress reported, will continue to monitor.
[2020-05-28 21:45] VITALS: BP 146/75; PULSE 99; RESP 20; TEMP 36.8; O2SAT 99
[2020-05-28] MEDS: diphenhydrAMINE HCL 25 MG TABLET 50 MG PO (23:27)
[2020-05-28] MEDS: HaloperidoL 5 MG TABLET PO (23:28)
[2020-05-28] MEDS: LORazepam 1 MG TABLET 2 MG PO (23:28)
[2020-05-28 23:48] VITALS: BP 147/85; PULSE 85; RESP 17; TEMP 36.6; O2SAT 98
--- NOTE | 2020-05-29 00:05 | PC.NURSE ---
Patient was observed self dialoguing in his room, requested medication for anxiety, thought process paranoid, response delayed & tangential, behavior escalating, provider notified/ordered Ativan 2 mg, Benadryl 50mg, and Haldol 5 mg PO/administered as ordered/patient compliant, will continue to monitor.
--- NOTE | 2020-05-29 07:38 | PC.NURSE ---
Report received from SANDRA Long. Pt resting, resp unlabored.
[2020-05-29 08:56] VITALS: BP 150/99; PULSE 97; TEMP 36.2; O2SAT 100
--- NOTE | 2020-05-29 08:58 | PC.NURSE ---
Pt awoke, appears drowsy but sitting up, eating meal, asking when he fell asleep.
--- NOTE | 2020-05-29 10:23 | PC.NURSE ---
Pt awake, eye contact minimal, responses careful, measured, clear. Pt declined to shower or have his linens changed.
--- NOTE | 2020-05-29 11:58 | PC.NURSE ---
Pt awake, focused on time and on date, frequently coming out of room to clarify time and date.
[2020-05-29 12:00] VITALS: RESP 20
[2020-05-29] MEDS: LORazepam 0.5 MG TABLET PO ×2 (15:43→21:44)
--- NOTE | 2020-05-29 15:45 | PC.NURSE ---
Pt appears increasingly anxious, affected by sound and appears to have increasingly difficult time concentrating. Pt educated re: lorazepam and willing to take.
--- NOTE | 2020-05-29 15:51 | PC.NURSE ---
Report given to SANDRA Ahn on [facility].
--- NOTE | 2020-05-29 16:37 | PC.NURSE ---
Pt reports feeling less anxious after receiving ativan. Pt called mother, left voicemail. Attempted to obtain earplugs for pt, called [facility] and supervisor fabrication department- none available at this time.
[2020-05-29 17:11] VITALS: BP 156/96; PULSE 99; RESP 20; TEMP 36.8; O2SAT 99
--- NOTE | 2020-05-29 17:34 | PC.NURSE ---
Pt aware that he will be transferred to , asking questions at times, currently asking when he will be transferred.
[2020-05-29 18:00] VITALS: BP 164/81; PULSE 85; TEMP 36.6
--- NOTE | 2020-05-29 18:14 | PC.NURSE ---
Pt in room, awaiting transfer. Mother brought in eye covering and ear plugs- pt using eye pad.
--- NOTE | 2020-05-29 18:46 | PC.NURSE ---
CARE team in with security to transfer pt to [facility]. Pt alert, cooperative w/ transfer.
[2020-05-29] MEDS: hydrOXYzine HCL 25 MG TABLET PO (21:44)
--- NOTE | 2020-05-29 22:05 | PC.ADMIT ---
PT is a 24 year old male, Salvadorean speaking who [place] [facility] [place] aprrox 1730 on a cv status. pt is covid -, utox-. Pt presented disorganized, He presents as delusional with regards to belief he is in love with and in a relationship with a female whom he attended high school with, and has never seen since. Mother reports he has been sleeping in several weeks as well as has not been eating resulting significant weight lose. Pt diagnosed with unspecified schizophrenia spectrum. Pt denied Si/HI with no pain. Dr. Hale called and notified for orders. pt on 5min checks. start treatment and monitor safety checks.
[2020-05-29] MEDS: traZODone HCL 50 MG TABLET PO (22:30)
[2020-05-30 11:14] VITALS: BP 140/73; PULSE 90; RESP 16; TEMP 36.6; O2SAT 99
[2020-05-30] MEDS: LORazepam 1 MG TABLET PO (16:51)
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
[2020-05-30 18:00] VITALS: BP 142/91; PULSE 99; TEMP 37.1
[2020-05-30] MEDS: LORazepam 0.5 MG TABLET PO (20:23)
[2020-05-30] MEDS: OLANZapine 5 MG TABLET PO (20:23)
[2020-05-30] MEDS: hydrOXYzine HCL 25 MG TABLET PO (20:24)
[2020-05-30] MEDS: traZODone HCL 50 MG TABLET PO (20:28)
--- NOTE | 2020-05-31 08:00 | ECG_ITS ---
Test Reason : BIPOLAR DISORDER Blood Pressure : / mmHG Vent. Rate : 080 BPM Atrial Rate : 080 BPM P-R Int : 162 ms QRS Dur : 100 ms QT Int : 390 ms P-R-T Axes : 065 063 020 degrees QTc Int : 449 ms Normal sinus rhythm with sinus arrhythmia Normal ECG When compared with ECG of 12-DEC-2017 19:21, No significant change was found Referred By: Anne Marie Sapp Electronically Signed By:ADITYA VERGARA MD
[2020-05-31] MEDS: LORazepam 0.5 MG TABLET PO ×2 (08:50→21:00)
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
[2020-05-31 18:00] VITALS: BP 148/80; PULSE 74; TEMP 36.7
[2020-05-31] MEDS: lamoTRIgine 25 MG TABLET PO (20:59)
[2020-05-31] MEDS: OLANZapine 2.5 MG TABLET PO (21:00)
[2020-06-01 06:20] VITALS: BP 135/66; PULSE 88; RESP 16; TEMP 36.1; O2SAT 100
[2020-06-01] MEDS: LORazepam 0.5 MG TABLET PO ×2 (08:02→22:09)
--- NOTE | 2020-06-01 08:28 | HO.PSYCHPN ---
Subjective Subjective Date of Service: 06/01/20 Reason For Visit: anxiety/bipolar sx Subjective Notes: 3 Day (06/03/20) Interim History: TDN 06/03/20. Family hopes he will reconsider, retract. Pt visible on the unit, perseverative with poor memory, some thought blocking. Focus on [employer] and what occurred. Pentecostal pain due to meds he reports to some, reports no pain to others. Brief, milieu interactions with pt where he spoke of medicine, his dislike due to his experience and his regret for behaviors upon admission to hospital. Two interactions where pt smiled, laughed and reported mild relief. Medication Compliance: Yes Side effects from medications: Yes (reports judaism pain) Attending Groups: Yes Review of Systems Review of Systems Yes all other systems are reviewed and are negative (denies) Reports behavioral changes and Reports confusion Psychiatric: Reports anxiety, Reports behavioral changes, Reports confusion, Reports depression, Reports difficulty concentrating, Reports mood swings, Reports paranoia and Reports hallucinations Mental Status Exam Mental Status Exam Patient Appearance: Disheveled Patient Orientation: Person and Place Level of Consciousness: Awake and Alert Patient Behavior: Guarded, Talkative, Cooperative, Suspicious, Restless, Wandering, Anxious, Fearful, Distractible and Good Eye Contact Mood Description: Anxious Affect Description: Anxious Patient Cognition Impaired: Yes Ability to Follow Directions: Good Speech Pattern: Spontaneous Speech Memory Description: Remote Impaired, Immediate Impaired and Episodic Impaired Hallucinations: None (denies) Delusions: Being Controlled, Paranoid Ideation and Present Thought Process: Illogical, Distracted and Rumination Thought Content: positive for Flight of Ideas, positive for Circumstantial, positive for Perseveration and positive for Tangential Depressive Symptoms: Increased Anxiety, Unhappiness, Loss of Energy and Difficulty Concentrating Abnormal Motor Activity Signs and Symptoms: Restlessness Judgement: Poor Diagnostics Vital Signs (24Hr): Vital Signs - 24 hr 05/31/20 18:00 06/01/20 06:20 Temperature 98.1 F 96.9 F Pulse Rate 74 88 Respiratory Rate 16 Blood Pressure 148/80 H 135/66 Pulse Oximetry 100 Body Mass Index 26.1 Labs Results: 05/28/20 10:10 05/28/20 10:10 Medications Medications Current Medications Generic Name Dose Route Start Last Admin Trade Name Freq PRN Reason Stop Dose Admin Acetaminophen 650 mg 05/29/20 17:08 Acetaminophen 325 Mg Tablet PO Q6H PRN Headache/Pain Mild Scale (1-3) Al Hydroxide/Mg Hydroxide 30 ml 05/29/20 17:08 Magnesium Hydrox/Alum Hydrox 30 Ml Oral.Susp PO Q6H PRN Heartburn/Nausea Benztropine Mesylate 0.5 mg 05/30/20 16:13 Benztropine Mesylate 0.5 Mg Tablet PO TID PRN Extrapyramidal Effects Hydroxyzine HCl 25 mg 05/29/20 17:08 05/30/20 20:24 Hydroxyzine Hcl 25 Mg Tablet PO 25 mg BEDTIME PRN Administration Anxiety Lamotrigine 25 mg 05/31/20 21:00 05/31/20 20:59 Lamotrigine 25 Mg Tablet PO 25 mg BEDTIME LUIS ALBERTO Administration Lorazepam 1 mg 05/30/20 16:10 05/30/20 16:51 Lorazepam 1 Mg Tablet PO 1 mg Q4H PRN Administration anxiety,agitation Lorazepam 0.5 mg 05/30/20 21:00 06/01/20 08:02 Lorazepam 0.5 Mg Tablet PO 0.5 mg BID LUIS ALBERTO Administration Magnesium Hydroxide 30 ml 05/29/20 17:08 Milk Of Magnesia 30 Ml Oral.Susp PO DAILY PRN Constipation Olanzapine 5 mg 05/30/20 16:12 Olanzapine 5 Mg Tablet PO BID PRN psychosis, severe agitation Olanzapine 2.5 mg 05/31/20 21:00 05/31/20 21:00 Olanzapine 2.5 Mg Tablet PO 2.5 mg BEDTIME LUIS ALBERTO Administration Trazodone HCl 50 mg 05/29/20 17:08 05/30/20 20:28 Trazodone Hcl 50 Mg Tablet PO 50 mg BEDTIME PRN Administration Insomnia Allergies Allergies Allergy/AdvReac Type Severity Reaction Status Date / Time divalproex sodium Allergy Intermediate UNKNOWN Verified 05/16/20 06:32 [From [facility]] Assessment & Plan Assessment & Plan (1) Posttraumatic stress disorder: Status: Acute Code(s): F43.10 - Post-traumatic stress disorder, unspecified (2) Asperger's disorder: Status: Acute Code(s): F84.5 - Asperger's syndrome (3) Bipolar disorder: Qualifiers: Active/Remission status: currently active Current bipolar episode type: manic Current episode severity: severe Psychotic features: with psychotic features Qualified Code(s): F31.2 - Bipolar disorder, current episode manic severe with psychotic features Status: Acute Code(s): F31.9 - Bipolar disorder, unspecified Assessment and Plan: -Increase Olanzapine to 5 mg hs Greater than 50% of the session was spent on counseling and/or coordination of care Reason for contiued inpatient stay Substantial Risk for: harm to self, harm to others, inability to function and rapid decompensation
[2020-06-01] MEDS: Acetaminophen 325 MG TABLET 650 MG PO (16:58)
[2020-06-01 18:00] VITALS: BP 154/70; PULSE 81; TEMP 36.6
[2020-06-01] MEDS: lamoTRIgine 25 MG TABLET PO (22:09)
[2020-06-01] MEDS: OLANZapine 5 MG TABLET PO (22:09)
[2020-06-02 07:00] VITALS: BMI 29.7
[2020-06-02] MEDS: LORazepam 0.5 MG TABLET PO ×2 (08:53→21:52)
[2020-06-02 08:59] LABS: TSH reflex Free T4 0.57 uIU/mL (0.32-4.0); Thyroid Stimulating Hormone 0.66 uIU/mL (0.32-4.0); Vitamin D 25-OH Total 5.1 ng/mL (>30)
[2020-06-02 09:10] VITALS: BP 158/94; PULSE 88; RESP 18; TEMP 36; O2SAT 100
[2020-06-02 10:23] LABS: Folate 15.2 ng/mL (> or = 4.0); Vitamin B12 264 pg/mL (200-900)
--- NOTE | 2020-06-02 14:36 | HO.PSYCHPN ---
Subjective Subjective Date of Service: 06/02/20 Reason For Visit: anxiety/bipolar sx Subjective Notes: 3 Day (06/03/20) Interim History: Met with pt to discuss TDN. Pt reports he is not interested in remaining in hospital. He believes he does not require treatment at this time. TW discussed family's opinion regarding completing treatment. He continues to decline offer to stay. Agrees to out patient therapy. He is honest in stating he probably will stop medications when at home due to his previous experiences. Education provided regarding the purpose of medication and the expected outcomes. Encouraged pt to continue trial. He appears to be relieved of some of his initial symptoms. Medication Compliance: Yes (reports he has been taking medications here.) Side effects from medications: No Attending Groups: Intermittent Review of Systems Review of Systems Yes all other systems are reviewed and are negative (denies current symptoms) Reports behavioral changes Psychiatric: Reports abnormal sleep pattern (reports back pain as he finds the bed to be uncomfortable), Reports behavioral changes, Reports depression and Reports paranoia Mental Status Exam Mental Status Exam Patient Appearance: Disheveled Patient Orientation: Person, Place, Time and Situation Level of Consciousness: Awake and Alert Patient Behavior: Appropriate, Talkative, Cooperative, Passive, Suspicious, Anxious, Fearful and Poor Eye Contact Mood Description: Withdrawn, Anxious, Nervous and Apprehensive Affect Description: Constricted Patient Cognition Impaired: No Ability to Follow Directions: Good Speech Pattern: Clear and Spontaneous Speech Memory Description: Episodic Impaired Hallucinations: None Delusions: Paranoid Ideation Perceptual Disturbances: Depersonalization (appears to be decreased) Thought Process: Distracted, Rumination and Goal Oriented Thought Content: positive for [place], positive for Circumstantial, positive for Suicidal Ideation (denies SI, plan, intent) and positive for Homicidal Ideation (denies HI, plan or intent) Depressive Symptoms: Increased Anxiety, Insomnia and Back Pain (pt reports mattress to be uncomfortable.) Abnormal Motor Activity Signs and Symptoms: Restlessness Judgement: Fair Diagnostics Vital Signs (24Hr): Vital Signs - 24 hr 06/01/20 18:00 06/02/20 09:10 Temperature 97.9 F 96.8 F Pulse Rate 81 88 Respiratory Rate 18 Blood Pressure 154/70 H 158/94 H Pulse Oximetry 100 Body Mass Index 29.7 Labs Results: 05/28/20 10:10 05/28/20 10:10 Labs: Laboratory Results - last 48 hr 06/02/20 06/02/20 06/02/20 08:02 08:02 08:02 Vitamin B12 264 25-OH Vitamin D Total 5.1 Folate 15.2 TSH 0.66 0.57 Medications Medications Current Medications Generic Name Dose Route Start Last Admin Trade Name Freq PRN Reason Stop Dose Admin Acetaminophen 650 mg 05/29/20 17:08 06/01/20 16:58 Acetaminophen 325 Mg Tablet PO 650 mg Q6H PRN Administration Headache/Pain Mild Scale (1-3) Al Hydroxide/Mg Hydroxide 30 ml 05/29/20 17:08 Magnesium Hydrox/Alum Hydrox 30 Ml Oral.Susp PO Q6H PRN Heartburn/Nausea Benztropine Mesylate 0.5 mg 05/30/20 16:13 Benztropine Mesylate 0.5 Mg Tablet PO TID PRN Extrapyramidal Effects Hydroxyzine HCl 25 mg 05/29/20 17:08 05/30/20 20:24 Hydroxyzine Hcl 25 Mg Tablet PO 25 mg BEDTIME PRN Administration Anxiety Lamotrigine 25 mg 05/31/20 21:00 06/01/20 22:09 Lamotrigine 25 Mg Tablet PO 25 mg BEDTIME LUIS ALBERTO Administration Lorazepam 1 mg 05/30/20 16:10 05/30/20 16:51 Lorazepam 1 Mg Tablet PO 1 mg Q4H PRN Administration anxiety,agitation Lorazepam 0.5 mg 05/30/20 21:00 06/02/20 08:53 Lorazepam 0.5 Mg Tablet PO 0.5 mg BID LUIS ALBERTO Administration Magnesium Hydroxide 30 ml 05/29/20 17:08 Milk Of Magnesia 30 Ml Oral.Susp PO DAILY PRN Constipation Olanzapine 5 mg 05/30/20 16:12 Olanzapine 5 Mg Tablet PO BID PRN psychosis, severe agitation Olanzapine 5 mg 06/01/20 21:00 06/01/20 22:09 Olanzapine 5 Mg Tablet PO 5 mg BEDTIME LUIS ALBERTO Administration Trazodone HCl 50 mg 05/29/20 17:08 05/30/20 20:28 Trazodone Hcl 50 Mg Tablet PO 50 mg BEDTIME PRN Administration Insomnia Allergies Allergies Allergy/AdvReac Type Severity Reaction Status Date / Time divalproex sodium Allergy Intermediate UNKNOWN Verified 05/16/20 06:32 [From [facility]] Assessment & Plan Assessment & Plan (1) Posttraumatic stress disorder: Status: Acute Code(s): F43.10 - Post-traumatic stress disorder, unspecified (2) Asperger's disorder: Status: Acute Code(s): F84.5 - Asperger's syndrome (3) Bipolar disorder: Qualifiers: Active/Remission status: currently active Current bipolar episode type: manic Current episode severity: severe Psychotic features: with psychotic features Qualified Code(s): F31.2 - Bipolar disorder, current episode manic severe with psychotic features Status: Acute Code(s): F31.9 - Bipolar disorder, unspecified Assessment and Plan: -Continue current regime -Supplement Vitamin D. Greater than 50% of the session was spent on counseling and/or coordination of care Reason for contiued inpatient stay Substantial Risk for: inability to function and rapid decompensation
[2020-06-02 15:20] LABS: Influenza A PCR NEGATIVE (Negative); Influenza B PCR NEGATIVE (Negative); Resp Syncy Virus RNA Qual PCR NEGATIVE (Negative); SARS COV2 PCR INHOUSE NEGATIVE (Negative)
[2020-06-02 18:00] VITALS: BP 129/84; PULSE 73; TEMP 36.7
[2020-06-02] MEDS: Cholecalciferol (Vitamin D3) 25 MCG TABLET PO (19:47)
[2020-06-02] MEDS: OLANZapine 5 MG TABLET PO (21:52)
[2020-06-02] MEDS: lamoTRIgine 25 MG TABLET PO (21:52)
[2020-06-03 06:35] VITALS: BP 138/71; PULSE 61; RESP 16; TEMP 36; O2SAT 100
[2020-06-03] MEDS: Cholecalciferol (Vitamin D3) 25 MCG TABLET PO (08:28)
[2020-06-03] MEDS: LORazepam 0.5 MG TABLET PO (08:28)
--- NOTE | 2020-06-03 14:32 | PM.PSYDC ---
DS: Providers Provider Date of Service: 06/11/20 Date of admission: 05/29/20 16:39 Date of discharge: 06/03/20 Primary care physician: Nuno Avendano MD DS: Diagnosis Discharge Diagnosis (1) Posttraumatic stress disorder: Status: Acute Problem details: 24 yo male, presenting with sx of anxiety, psychosis, delusions, ?joaquin. Two previous visits to ER [facility]. Precipitant appears to be a surgical procedure (urology) with Tramadol used for pain. ? PTSD sx triggered (2) Asperger's disorder: Status: Acute Problem details: diagnosed in childhood (3) Bipolar disorder: Status: Acute Problem details: Hx of residential care. No medicine used in 10 years. Pt has lived with family, achieved an AD in [place], is working with [employer] and working on a BA at [facility]. Mother, also pt's guardian, reports these are new symptoms. DS: Medications Discharge Medications Home Medications: Home Medications Medication Instructions Recorded Confirmed No Known Home Meds 05/27/20 05/27/20 Previous Rx's Medication Instructions Recorded benztropine 0.5 mg PO TID PRN #90 tab 06/03/20 cholecalciferol (vitamin D3) 25 mcg PO DAILY #30 tab 06/03/20 lamotrigine 25 mg PO BEDTIME #30 tab 06/03/20 olanzapine 5 mg PO BEDTIME #30 tab 06/03/20 Discharge Plan Discharge Anticipated Discharge Date/Time: 06/03/20 18:00 Patient Disposition: Home, Self-Care [facility] [Other] - 06/06/20 9:30 am Psych [facility] [Other] - 06/29/20 4:20 pm Psych [facility] [Other] - 07/27/20 9:20 am Nuno Avendano MD [Physician] - (They will call you to follow up.) Discharge Medications: New benztropine 0.5 mg Tablet 0.5 mg PO TID PRN (Reason: Extrapyramidal Effects) Qty: 90 RF: 0 olanzapine 5 mg Tablet 5 mg PO BEDTIME Qty: 30 RF: 0 lamotrigine 25 mg Tablet 25 mg PO BEDTIME Qty: 30 RF: 0 cholecalciferol (vitamin D3) 25 mcg (1,000 unit) Tablet 25 mcg PO DAILY Qty: 30 RF: 0 No Action No Known Home Meds RF: 0 Discharge Orders: Discharge Order (Routine); Ordered 06/03/20 Ordered By: Anne Marie Sapp Diet: advance to usual diet Activity on Discharge: As tolerated Stand Alone Forms: Patient Portal Discharge page, Community Support Visit Report Forms: Patient Portal Discharge page Care Plan Goals: mood stability decrease of anxious distress clarity of thought Health Concerns: Vitamin D deficiency-we have given you a supplement Plan of Treatment: You have signed a three day notice and are leaving the hospital before your treatment is complete. We would like you to stay longer so we may continue to work to help you to feel your best. Follow up with all of your appointments Take medications as prescribed. Please return if your symptoms increase or you believe you need assessment for readmission. Discharge Date/Time: 06/03/20 13:29 Mental Status Exam Mental Status Exam Patient Appearance: Appropriate Patient Orientation: Person, Place, Time and Situation Level of Consciousness: Alert Patient Behavior: Guarded, Cooperative, Passive, Anxious, Avoidant and Poor Eye Contact Mood Description: Apprehensive Affect Description: Flat Patient Cognition Impaired: No Ability to Follow Directions: Good Speech Pattern: Spontaneous Speech and Soft-Spoken Memory Description: Intact Hallucinations: None Delusions: Not Present Thought Process: Goal Oriented Thought Content: positive for [place], positive for Circumstantial and positive for Goal Oriented Judgement: Good Data Data Completed and Pending Completed studies during hospitalization [Text1]: 05/28/20 05/28/20 05/28/20 09:20 10:10 10:10 WBC 8.0 RBC 5.98 H Hgb 17.2 Hct 50.8 MCV 84.9 MCH 28.8 MCHC 33.9 RDW 12.5 Plt Count 325 MPV 10.1 Immature Gran % (Auto) 0.1 Neut % (Auto) 72.3 Lymph % (Auto) 19.6 L [place] % (Auto) 6.5 Eos % (Auto) 0.9 Baso % (Auto) 0.6 Lymph # (Auto) 1.6 [place] # (Auto) 0.5 Eos # (Auto) 0.1 Baso # (Auto) 0.1 Abs Immat Gran (auto) 0.01 Absolute Neuts (auto) 5.8 Absolute Nucleated RBC 0.000 Nucleated RBC % (auto) 0.0 Sodium 141 Potassium 4.1 Chloride 104 Carbon Dioxide 28 Anion Gap 13 BUN 17 H Creatinine 0.95 Estim Creat Clear Calc 148.5 Estimated GFR > 60 Random Glucose 93 Calcium 9.6 Total Bilirubin 1.8 H AST 32 D ALT 27 Alkaline Phosphatase 86 Total Protein 7.9 Albumin 4.9 Vitamin B12 25-OH Vitamin D Total Folate TSH Urine Color Urine Appearance Urine pH Ur Specific [place] Urine Protein Urine Glucose (UA) Urine Ketones Urine Blood Urine Nitrite Ur Leukocyte Esterase Urine RBC Urine WBC Ur Squamous Epith Cells Urine Bacteria Urine Opiates Screen Ur Barbiturates Screen Ur Phencyclidine Scrn Ur Amphetamines Screen U Benzodiazepines Scrn Urine Cocaine Screen U Marijuana (THC) Screen Ethyl Alcohol Coronavirus (PCR) COVID-19 ([facility]) Negative COVID-19 Clin Com See Note Influenza Type A (PCR) Influenza Type B (PCR) RSV RNA Qual (PCR) 05/28/20 05/28/20 05/28/20 10:10 11:35 11:35 WBC RBC Hgb Hct MCV MCH MCHC RDW Plt Count MPV Immature Gran % (Auto) Neut % (Auto) Lymph % (Auto) [place] % (Auto) Eos % (Auto) Baso % (Auto) Lymph # (Auto) [place] # (Auto) Eos # (Auto) Baso # (Auto) Abs Immat Gran (auto) Absolute Neuts (auto) Absolute Nucleated RBC Nucleated RBC % (auto) Sodium Potassium Chloride Carbon Dioxide Anion Gap BUN Creatinine Estim Creat Clear Calc Estimated GFR Random Glucose Calcium Total Bilirubin AST ALT Alkaline Phosphatase Total Protein Albumin Vitamin B12 25-OH Vitamin D Total Folate TSH Urine Color YELLOW Urine Appearance CLEAR Urine pH 6.0 Ur Specific [place] 1.015 Urine Protein NEG Urine Glucose (UA) NEG Urine Ketones NEG Urine Blood NEG Urine Nitrite NEG Ur Leukocyte Esterase NEG Urine RBC 0 Urine WBC 0 Ur Squamous Epith Cells NONE Urine Bacteria NONE Urine Opiates Screen Not Detected Ur Barbiturates Screen Not Detected Ur Phencyclidine Scrn Not Detected Ur Amphetamines Screen Not Detected U Benzodiazepines Scrn Not Detected Urine Cocaine Screen Not Detected U Marijuana (THC) Screen Not Detected Ethyl Alcohol < 10 Coronavirus (PCR) COVID-19 ([facility]) COVID-19 Clin Com Influenza Type A (PCR) Influenza Type B (PCR) RSV RNA Qual (PCR) 06/02/20 06/02/20 06/02/20 08:02 08:02 08:02 WBC RBC Hgb Hct MCV MCH MCHC RDW Plt Count MPV Immature Gran % (Auto) Neut % (Auto) Lymph % (Auto) [place] % (Auto) Eos % (Auto) Baso % (Auto) Lymph # (Auto) [place] # (Auto) Eos # (Auto) Baso # (Auto) Abs Immat Gran (auto) Absolute Neuts (auto) Absolute Nucleated RBC Nucleated RBC % (auto) Sodium Potassium Chloride Carbon Dioxide Anion Gap BUN Creatinine Estim Creat Clear Calc Estimated GFR Random Glucose Calcium Total Bilirubin AST ALT Alkaline Phosphatase Total Protein Albumin Vitamin B12 264 25-OH Vitamin D Total 5.1 Folate 15.2 TSH 0.66 0.57 Urine Color Urine Appearance Urine pH Ur Specific [place] Urine Protein Urine Glucose (UA) Urine Ketones Urine Blood Urine Nitrite Ur Leukocyte Esterase Urine RBC Urine WBC Ur Squamous Epith Cells Urine Bacteria Urine Opiates Screen Ur Barbiturates Screen Ur Phencyclidine Scrn Ur Amphetamines Screen U Benzodiazepines Scrn Urine Cocaine Screen U Marijuana (THC) Screen Ethyl Alcohol Coronavirus (PCR) COVID-19 ([facility]) COVID-19 Clin Com Influenza Type A (PCR) Influenza Type B (PCR) RSV RNA Qual (PCR) 06/02/20 13:58 WBC RBC Hgb Hct MCV MCH MCHC RDW Plt Count MPV Immature Gran % (Auto) Neut % (Auto) Lymph % (Auto) [place] % (Auto) Eos % (Auto) Baso % (Auto) Lymph # (Auto) [place] # (Auto) Eos # (Auto) Baso # (Auto) Abs Immat Gran (auto) Absolute Neuts (auto) Absolute Nucleated RBC Nucleated RBC % (auto) Sodium Potassium Chloride Carbon Dioxide Anion Gap BUN Creatinine Estim Creat Clear Calc Estimated GFR Random Glucose Calcium Total Bilirubin AST ALT Alkaline Phosphatase Total Protein Albumin Vitamin B12 25-OH Vitamin D Total Folate TSH Urine Color Urine Appearance Urine pH Ur Specific [place] Urine Protein Urine Glucose (UA) Urine Ketones Urine Blood Urine Nitrite Ur Leukocyte Esterase Urine RBC Urine WBC Ur Squamous Epith Cells Urine Bacteria Urine Opiates Screen Ur Barbiturates Screen Ur Phencyclidine Scrn Ur Amphetamines Screen U Benzodiazepines Scrn Urine Cocaine Screen U Marijuana (THC) Screen Ethyl Alcohol Coronavirus (PCR) NEGATIVE COVID-19 ([facility]) COVID-19 Clin Com Influenza Type A (PCR) NEGATIVE Influenza Type B (PCR) NEGATIVE RSV RNA Qual (PCR) NEGATIVE DS: Summary Hospital Course Hospital Course: Pt was admitted on a CV but did sign a TDN. He accepted careful titration of olanzapine and beginning dosing of Lamictal. As he has a history of traumatic response to medication (gynecomastia with Risperdal, requiring surgery-he was bullied for this symptom) dosing was completed carefully. He did respond without adverse effect, however was clear he would stop medication when discharged. Family encouraged pt to remain in hospital and complete his treatment, however, he refused. Family is aware pt may return as needed. Status at Discharge Cognitive/behavioral status at discharge: quiet, withdrawn, alert, oriented, non suicidal, non homicidal, non psychotic Functional status at discharge: independent ambulation Overall status at discharge: patient is progressing back to baseline Time Spent with Patient Time attestation: Total time spent providing and/or coordinating discharge services: 45 Time spent: Greater than 30 minutes
== END 2020-06-03 13:29 | disposition home or self-care (01) | DRG 755 ==
LOC: HO.ED 05-28 01:41 → HO.PM5 05-29 17:07
PROVIDERS: Nurse Practitioner Family; Nurse Practitioner Primary Care; Admitting Provider Psychiatry & Neurology Psychiatry; Emergency Provider Internal Medicine; Visit Provider Clinical Nurse Specialist Psychiatric/Mental Health, Adult
DX: F43.10 Post-traumatic stress disorder, unspecified (principal); F31.9 Bipolar disorder, unspecified; F84.5 Asperger's syndrome; Z20.822 Contact with and (suspected) exposure to COVID-19; Z79.899 Other long term (current) drug therapy
CPT/HCPCS: 0241U; 36415; 80053; 80307; 80320; 81001; 82306; 82607; 82746; 84443; 85025; 87635; 93005; 99285; Q0163

== ENCOUNTER → 2020-06-16 13:45 | Outpatient (BNVA) | payer MEDICAID, SELFPAY | PROVIDERS: PCP Internal Medicine; Visit Provider Urology | DX: N48.89 Other specified disorders of penis (principal) | CPT/HCPCS: 99212 ==

== ENCOUNTER 2020-07-23 02:55 | Inpatient (IN) | payer MEDICAID, OTHER, SELFPAY ==
[2020-07-23 03:03] VITALS: BP 145/114; PULSE 111; RESP 18; TEMP 37.1; O2SAT 100; BMI 29.6
[2020-07-23 03:38] VITALS: BP 145/114; PULSE 140; RESP 17; TEMP 36.7; O2SAT 97
[2020-07-23] MEDS: OLANZapine 5 MG TABLET PO ×2 (03:40→20:20)
[2020-07-23 03:54] LABS: COVID-19 Test Negative (Negative); IDNOW Serial# 9DD0AD1C
[2020-07-23 04:01] LABS: Amphetamine Screen Urine Not Detected (Not Detect); Barbiturates, Urine Not Detected (Not Detect); Benzodiazepines Screen Urine Not Detected (Not Detect); Cannabinoid Screen Urine Not Detected (Not Detect); Cocaine Screen Urine Not Detected (Not Detect); Opiate Screen Urine Not Detected (Not Detect); Phencyclidine Screen Urine Not Detected (Not Detect)
--- NOTE | 2020-07-23 04:04 | PC.NURSE ---
Patient is delusional and paranoid, hyper-sexual, off medication for over a month, provider notified/verbally ordered Olanzapine 5 mg PO, order entered/read back/confirmed/administered as ordered, patient compliant, pending effect, will continue to monitor.
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
--- NOTE | 2020-07-23 07:16 | PC.NURSE ---
Report received from SANDRA Long. Pt resting, resp unlabored.
[2020-07-23 08:00] VITALS: RESP 20
[2020-07-23 10:00] VITALS: RESP 20
--- NOTE | 2020-07-23 10:57 | PC.NURSE ---
Pt resting, resp unlabored.
--- NOTE | 2020-07-23 11:26 | PC.NURSE ---
Report received. Pt asleep at current. No signs of distress. RR even and unlabored. Continues to be a section 12 bed search.
[2020-07-23 12:07] VITALS: BP 106/60; PULSE 119; RESP 18; TEMP 36.6
--- NOTE | 2020-07-23 12:24 | PC.NURSE ---
MHA doing 15 minute checks, pt asked MHA to come into his room and shut the door. MHA told pt they could talk to him from doorway. Pt then inquired if MHA was spoken for . When MHA decline to answer, pt then stated, wanna come in here and f*ck?
--- NOTE | 2020-07-23 12:44 | PC.NURSE ---
Pt refusing to let M[facility] draw blood for labs. Will attempt again later.
--- NOTE | 2020-07-23 13:09 | PC.NURSE ---
Pt resting in bed at current. No complaints at this time. Calm and cooperative.
[2020-07-23] MEDS: LORazepam 1 MG TABLET 2 MG PO ×2 (14:00→20:19)
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
[2020-07-23 14:50] LABS: MANUAL DIFF FLAG NO
[2020-07-23 14:51] LABS: Basophils Absolute Auto 0.1 X10*3/uL (0.0-0.2); Basophils Percent Auto 0.5 % (0-2); Eosinophils Percent Auto 0.4 % (0-4); Hematocrit 51.5 % (42-52); Hemoglobin 17.3 g/dl (14.0-18.0); Imm Gran Abs Auto 0.03 X10*3/uL (0.00-0.03); Imm Gran Pct Auto 0.3 % (0.0-0.4); Lymphocytes Absolute Auto 1.9 X10*3/uL (1.2-4.9); Lymphocytes Percent Auto 17.5 % (20-40); Mean Corpuscular HGB Conc 33.6 g/dl (31.0-36.0); Mean Corpuscular Hemoglobin 28.9 pg (27.0-33.0); Mean Platelet Volume 9.9 fL (9.4-12.4); Monocytes Absolute Auto 0.6 X10*3/uL (0.1-1.2); Monocytes Percent Auto 5.9 % (2-11); Neutrophils Absolute Auto 8.2 X10*3/uL (2.0-8.3); Neutrophils Percent Auto 75.4 % (45-73); Platelet Count 290 X10*3/uL (160-400); Red Blood Count 5.99 X10*6/uL (4.60-5.80); Red Cell Distribution Width 12.9 % (11.0-16.0); White Blood Count 10.9 X10*3/uL (4.8-10.8)
[2020-07-23 15:00] LABS: INTERNATIONAL NORM RATIO 1.2 (0.9-1.1); Prothrombin Time 13.8 SEC (10.8-13.0)
[2020-07-23 15:16] LABS: Ethanol < 10 mg/dL
[2020-07-23 15:19] LABS: Alanine Aminotransferase 30 U/L (0-40); Albumin Level 4.9 g/dL (3.5-5.0); Alkaline Phosphatase 85 U/L (39-117); Anion Gap 16 (12-20); Aspartate Amino Transferase 30 U/L (5-37); Bilirubin Direct 0.4 mg/dL (0.0-0.5); Bilirubin Total 1.2 mg/dL (0.0-1.0); Blood Urea Nitrogen 18 mg/dL (9-16); Calcium 9.7 mg/dL (8.4-10.2); Carbon Dioxide 26 mmol/L (22-29); Chloride 103 mmol/L (96-108); Creatinine Clr Calc Pharmacy 168.5; Estimated Glomerular Filt Rate > 60; Glucose Random 105 mg/dL (60-115); Lipase 32 U/L (8-78); Magnesium 2.3 mg/dL (1.6-2.6); Potassium 3.9 mmol/L (3.3-5.1); Sodium 141 mmol/L (135-145); Total Protein 8.1 g/dL (6.5-8.0)
[2020-07-23] MEDS: Cholecalciferol (Vitamin D3) 25 MCG TABLET PO (15:23)
[2020-07-23] MEDS: lamoTRIgine 25 MG TABLET PO (15:23)
--- NOTE | 2020-07-23 15:44 | PC.NURSE ---
Pt asleep at current. No signs of distress. RR even and unlabored. Continues to be a section 12 bed search.
[2020-07-23 16:28] LABS: Alanine Aminotransferase 30 U/L (0-40); Albumin Level 4.9 g/dL (3.5-5.0); Alkaline Phosphatase 85 U/L (39-117); Anion Gap 16 (12-20); Aspartate Amino Transferase 30 U/L (5-37); Bilirubin Total 1.2 mg/dL (0.0-1.0); Blood Urea Nitrogen 18 mg/dL (9-16); Calcium 9.6 mg/dL (8.4-10.2); Carbon Dioxide 25 mmol/L (22-29); Chloride 103 mmol/L (96-108); Creatinine Clr Calc Pharmacy 166.7; Estimated Glomerular Filt Rate > 60; Glucose Random 107 mg/dL (60-115); Potassium 3.9 mmol/L (3.3-5.1); Sodium 140 mmol/L (135-145); Total Protein 8.2 g/dL (6.5-8.0)
[2020-07-23 16:48] LABS: Thyroid Stimulating Hormone 0.81 uIU/mL (0.32-4.0)
--- NOTE | 2020-07-23 18:22 | PC.NURSE ---
Pt asleep at current. No signs of distress. RR even and unlabored.
--- NOTE | 2020-07-23 19:16 | PC.NURSE ---
Patient in bed appears sleeping at this time, patient resumed back on his medication and he is compliant so far per report, no distress observed/reported, will continue to monitor.
[2020-07-23] MEDS: Benztropine Mesylate 0.5 MG TABLET PO (20:20)
[2020-07-23 21:34] VITALS: BP 151/89; PULSE 103; RESP 18; TEMP 36.8; O2SAT 95
--- NOTE | 2020-07-24 07:16 | PC.NURSE ---
Report received from SANDRA Long. Pt resting, resp unlabored.
[2020-07-24] MEDS: Cholecalciferol (Vitamin D3) 25 MCG TABLET PO (08:56)
[2020-07-24 08:58] VITALS: BP 141/88; PULSE 87; RESP 18; TEMP 36.6; O2SAT 100
--- NOTE | 2020-07-24 09:04 | PC.NURSE ---
Pt awake, mildly irritable, requesting to know date and time several times. Pt agreed to take vitamin D, but declined lamotrigine stating that per printed sheet given to him previously, lamotrigine should be given at bedtime. Pharmacy called, pharmacist will change time of administration to bedtime.
--- NOTE | 2020-07-24 09:59 | PC.NURSE ---
Pt seen by NAVARRO
[2020-07-24] MEDS: LORazepam 1 MG TABLET 2 MG PO ×2 (11:09→21:13)
--- NOTE | 2020-07-24 11:14 | PC.NURSE ---
Pt out of room multiple times, requesting to have words spelled, or to be told date and time. Requests repetitive, perseverative. scheduled check ins set up for patient to create structure. On check in pt began again to recollect mother's diagnosis of cancer, and circumstances leading to current hospitalization. Pt agreed hat he was feeling anxious, and agreed to take Lorazepam as ordered.
--- NOTE | 2020-07-24 12:25 | PC.NURSE ---
Pt continues to appear anxious, frequently requesting time with staff despite structure set.
[2020-07-24 14:00] VITALS: RESP 20
--- NOTE | 2020-07-24 14:18 | PC.NURSE ---
Pt sitting in room, emerging frequently to ask day and time, date of arrival, time of arrival.
--- NOTE | 2020-07-24 16:23 | PC.NURSE ---
Pt awake, alert- continues to approach the nurse's station frequently with questions. Pt however appears less anxious, requiring less reassurance than previously.
[2020-07-24 17:42] VITALS: BP 152/91; PULSE 96; RESP 18; TEMP 36.5; O2SAT 98
--- NOTE | 2020-07-24 17:51 | PC.NURSE ---
Pt eating dinner, no concerns reported at this time. Pt drinking large quantities of water- encouraged to pace fluid intake. Pt cooperative w/ redirection.
[2020-07-24] MEDS: lamoTRIgine 25 MG TABLET PO (21:13)
[2020-07-24] MEDS: OLANZapine 5 MG TABLET PO (21:13)
[2020-07-24 21:16] VITALS: BP 140/98; PULSE 120; RESP 18; TEMP 36.2; O2SAT 100
--- NOTE | 2020-07-24 21:24 | PC.NURSE ---
Patient just woke up, asked for food and had sandwich, appears restless, HR was 120, with HS scheduled meds, PRN Ativan 2 mg administered and patient compliant with his medication, currently in his room sitting, will continue to monitor.
[2020-07-25] MEDS: diphenhydrAMINE HCL 25 MG TABLET PO (01:23)
[2020-07-25] MEDS: OLANZapine 5 MG TABLET PO ×3 (01:23→15:02)
--- NOTE | 2020-07-25 07:19 | PC.NURSE ---
patient is up eating breakfast. Alert and Oriented x3. Patient is a bed search at this moment.
[2020-07-25] MEDS: Cholecalciferol (Vitamin D3) 25 MCG TABLET PO (08:33)
[2020-07-25 08:48] VITALS: BP 152/82; PULSE 87; RESP 16; TEMP 37.2; O2SAT 99
--- NOTE | 2020-07-25 11:12 | PC.NURSE ---
patient repeatedly asks to be discharge, even after being told several times that he is a bed search and under section 12.
--- NOTE | 2020-07-25 13:38 | ECG_ITS ---
Test Reason : AMS Blood Pressure : / mmHG Vent. Rate : 079 BPM Atrial Rate : 079 BPM P-R Int : 154 ms QRS Dur : 098 ms QT Int : 374 ms P-R-T Axes : 068 057 009 degrees QTc Int : 428 ms Normal sinus rhythm Normal ECG When compared with ECG of 31-MAY-2020 09:04, No significant change was found Referred By: Bessy Kirby Electronically Signed By:Bright Solis
--- NOTE | 2020-07-25 14:36 | PC.NURSE ---
patient is starting to pace around the ED, standing over nurses station. states he will not go upstairs to m5. patient explained to that he has a section 12.
[2020-07-25 18:55] VITALS: BP 159/90; PULSE 77; TEMP 36.6
--- NOTE | 2020-07-25 23:49 | PC.NURSE ---
Pt signed a three day notice of revocation of CV upon arrival to .
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
[2020-07-26] MEDS: hydrOXYzine HCL 25 MG TABLET PO (03:23)
[2020-07-26] MEDS: LORazepam 1 MG TABLET PO (03:23)
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
--- NOTE | 2020-07-26 15:15 | PC.NURSE ---
Brown retracted his Three Day Notice today
[2020-07-26 18:00] VITALS: BP 119/58; TEMP 36.1
--- NOTE | 2020-07-27 09:26 | PC.NURSE ---
Brown declined receiving a flu vaccine in the hospital. He reported that he does not use tobacco nor nicotine products in the community and does not want nicotine replacement therapy in the hospital.
--- NOTE | 2020-07-27 12:24 | P.PNPSI_ITS ---
Subjective Subjective Date of Service: 07/27/20 Reason For Visit: Psychosis Subjective Notes: Conditional Voluntary Interim History: Discussed medications with pt. who refused medications on 07/26. Review of Abilify-pt has medication teaching sheets and agreed to trial. Focused on marketing his new relativity theory so he can make funding to move to [place]. Reviewed with pt family concern about his treatment noncompliance and symptom exacerbation after last hospitalization. Mother is currently pt's guardian-he affirms this as well. Discussed community Gael's and voluntary trials to address symptoms with minimal side effects vs having court ordered treatment. Pt to accept a voluntary trial he reports. Medication Compliance: No Side effects from medications: No (na) Attending Groups: No Review of Systems Review of Systems Yes all other systems are reviewed and are negative (denies) Psychiatric: Reports paranoia, Reports hallucinations and Reports other (delusions of grandeur-believes he has designed a new relativity theory.) Mental Status Exam Mental Status Exam Patient Appearance: Appropriate Patient Orientation: Person, Place, Time and Situation Level of Consciousness: Alert Patient Behavior: Guarded (asks before each question if this is confidential), Talkative, Suspicious, Anxious, Resistive to Care, Avoidant, Distractible, Isolative and Good Eye Contact Mood Description: Constricted Affect Description: Constricted Patient Cognition Impaired: Yes Ability to Follow Directions: Fair Speech Pattern: Spontaneous Speech Memory Description: Episodic Impaired Delusions: Being Controlled, Paranoid Ideation, Grandiose and Present Thought Process: Illogical and Distracted Thought Content: positive for Flight of Ideas, positive for Loose Associations, positive for Tangential, positive for Disorganized and positive for Suicidal Ideation (denies) Depressive Symptoms: Isolating-Friends/Family and Difficulty Concentrating Judgement: Poor Diagnostics Vital Signs (24Hr): Vital Signs - 24 hr 07/26/20 18:00 Temperature 97 F Blood Pressure 119/58 L Body Mass Index 29.6 Labs Results: 07/23/20 14:44 07/23/20 14:44 Medications Medications Current Medications Generic Name Dose Route Start Last Admin Trade Name Freq PRN Reason Stop Dose Admin Acetaminophen 650 mg 07/25/20 16:52 Acetaminophen 325 Mg Tablet PO Q6H PRN Headache/Pain Mild Scale (1-3) Al Hydroxide/Mg Hydroxide 30 ml 07/25/20 16:52 Magnesium Hydrox/Alum Hydrox 30 Ml Oral.Susp PO Q6H PRN Heartburn/Nausea Aripiprazole 5 mg 07/27/20 21:00 Aripiprazole 5 Mg Tablet PO BEDTIME ULIS ALBERTO Benztropine Mesylate 0.5 mg 07/23/20 14:53 07/23/20 20:20 Benztropine Mesylate 0.5 Mg Tablet PO 0.5 mg BID PRN Administration Extrapyramidal Effects Haloperidol 5 mg 07/25/20 16:51 Haloperidol 5 Mg Tablet PO Q4H PRN Psychosis Hydroxyzine HCl 25 mg 07/25/20 16:52 07/26/20 03:23 Hydroxyzine Hcl 25 Mg Tablet PO 25 mg BEDTIME PRN Administration Anxiety Lamotrigine 25 mg 07/24/20 21:00 07/26/20 20:32 Lamotrigine 25 Mg Tablet PO Not Given BEDTIME LUIS ALBERTO Lorazepam 1 mg 07/25/20 15:26 07/26/20 03:23 Lorazepam 1 Mg Tablet PO 1 mg Q4H PRN Administration agitation Magnesium Hydroxide 30 ml 07/25/20 16:52 Milk Of Magnesia 30 Ml Oral.Susp PO DAILY PRN Constipation Olanzapine 5 mg 07/23/20 14:55 07/25/20 15:02 Olanzapine 5 Mg Tablet PO 5 mg Q4H PRN Administration psychotic agitation Trazodone HCl 50 mg 07/25/20 16:52 Trazodone Hcl 50 Mg Tablet PO BEDTIME PRN Insomnia Vitamin D 25 mcg 07/23/20 15:00 07/27/20 08:42 Cholecalciferol (Vitamin D3) 25 Mcg Tablet PO Not Given DAILY LUIS ALBERTO Allergies Allergies Allergy/AdvReac Type Severity Reaction Status Date / Time divalproex sodium Allergy Intermediate UNKNOWN Verified 05/16/20 06:32 [From DEPAKOTE] Assessment & Plan Assessment & Plan (1) Schizophrenia: Status: Acute Code(s): F20.9 - Schizophrenia, unspecified Assessment and Plan: -Discontinue scheduled Olanzapine -Abilify 5 mg hs (2) Posttraumatic stress disorder: Status: Acute Code(s): F43.10 - Post-traumatic stress disorder, unspecified (3) Asperger's disorder: Status: Acute Code(s): F84.5 - Asperger's syndrome Greater than 50% of the session was spent on counseling and/or coordination of care Reason for contiued inpatient stay Substantial Risk for: inability to function and rapid decompensation
[2020-07-27 19:10] VITALS: BP 172/81; PULSE 95; TEMP 36.7
[2020-07-27] MEDS: ARIPiprazole 5 MG TABLET PO (22:47)
[2020-07-27] MEDS: lamoTRIgine 25 MG TABLET PO (22:47)
[2020-07-28 01:05] VITALS: BP 148/90; PULSE 94; RESP 16
[2020-07-28] MEDS: LORazepam 1 MG TABLET PO (04:35)
[2020-07-28] MEDS: HaloperidoL 5 MG TABLET PO (04:35)
[2020-07-28] MEDS: OLANZapine 5 MG TABLET PO ×2 (04:35→08:59)
[2020-07-28 09:18] VITALS: BP 119/54; PULSE 58; RESP 14; TEMP 36.3; O2SAT 97
--- NOTE | 2020-07-28 10:21 | HO.PSYCHPN ---
Subjective Subjective Date of Service: 07/28/20 Reason For Visit: Psychosis Interim History: The patient was reassessed at bedside. He denied new symptoms, no side effects with Abilify 5 mg. Nursing reported that he has not attended to groups and he was medicated PRN at 2:15 AM with Zyprexa due to psychotic symptoms. Review of Systems Review of Systems Yes all other systems are reviewed and are negative Mental Status Exam Mental Status Exam Patient Appearance: Disheveled Patient Orientation: Person, Place and Time Level of Consciousness: Awake Patient Behavior: Uncooperative Mood Description: Apathetic Affect Description: Apprehensive Patient Cognition Impaired: No Ability to Follow Directions: Fair Speech Pattern: Clear Memory Description: Intact Hallucinations: None Delusions: Paranoid Ideation Thought Process: Slowed Thinking Thought Content: positive for Thought Blocking Judgement: Poor Diagnostics Vital Signs (24Hr): Vital Signs - 24 hr 07/27/20 19:10 07/28/20 01:05 07/28/20 09:18 Temperature 98.0 F 97.4 F Pulse Rate 95 94 58 Respiratory Rate 16 14 Blood Pressure 172/81 H 148/90 H 119/54 L Pulse Oximetry 97 Body Mass Index 29.6 Labs Results: 07/23/20 14:44 07/23/20 14:44 Medications Medications Current Medications Generic Name Dose Route Start Last Admin Trade Name Freq PRN Reason Stop Dose Admin Acetaminophen 650 mg 07/25/20 16:52 Acetaminophen 325 Mg Tablet PO Q6H PRN Headache/Pain Mild Scale (1-3) Al Hydroxide/Mg Hydroxide 30 ml 07/25/20 16:52 Magnesium Hydrox/Alum Hydrox 30 Ml Oral.Susp PO Q6H PRN Heartburn/Nausea Aripiprazole 5 mg 07/27/20 21:00 07/27/20 22:47 Aripiprazole 5 Mg Tablet PO 5 mg BEDTIME LU[facility]ERTO Administration Benztropine Mesylate 0.5 mg 07/23/20 14:53 07/23/20 20:20 Benztropine Mesylate 0.5 Mg Tablet PO 0.5 mg BID PRN Administration Extrapyramidal Effects Haloperidol 5 mg 07/25/20 16:51 07/28/20 04:35 Haloperidol 5 Mg Tablet PO 5 mg Q4H PRN Administration Psychosis Hydroxyzine HCl 25 mg 07/25/20 16:52 07/26/20 03:23 Hydroxyzine Hcl 25 Mg Tablet PO 25 mg BEDTIME PRN Administration Anxiety Lamotrigine 25 mg 07/24/20 21:00 07/27/20 22:47 Lamotrigine 25 Mg Tablet PO 25 mg BEDTIME LUIS ALBERTO Administration Lorazepam 1 mg 07/25/20 15:26 07/28/20 04:35 Lorazepam 1 Mg Tablet PO 1 mg Q4H PRN Administration agitation Magnesium Hydroxide 30 ml 07/25/20 16:52 Milk Of Magnesia 30 Ml Oral.Susp PO DAILY PRN Constipation Olanzapine 5 mg 07/23/20 14:55 07/28/20 08:59 Olanzapine 5 Mg Tablet PO 5 mg Q4H PRN Administration psychotic agitation Trazodone HCl 50 mg 07/25/20 16:52 Trazodone Hcl 50 Mg Tablet PO BEDTIME PRN Insomnia Vitamin D 25 mcg 07/23/20 15:00 07/28/20 08:59 Cholecalciferol (Vitamin D3) 25 Mcg Tablet PO Not Given DAILY LUIS ALBERTO Allergies Allergies Allergy/AdvReac Type Severity Reaction Status Date / Time divalproex sodium Allergy Intermediate UNKNOWN Verified 05/16/20 06:32 [[facility] Assessment & Plan Assessment & Plan (1) Schizophrenia: Status: Acute Code(s): F20.9 - Schizophrenia, unspecified Assessment and Plan: 1. Continue titration of Abilify up to 7.5 mg po daily 2. Change observation to routine (2) Posttraumatic stress disorder: Status: Acute Code(s): F43.10 - Post-traumatic stress disorder, unspecified (3) Asperger's disorder: Status: Acute Code(s): F84.5 - Asperger's syndrome Greater than 50% of the session was spent on counseling and/or coordination of care Reason for contiued inpatient stay Substantial Risk for: inability to function
[2020-07-28 15:01] VITALS: BMI 31.3
[2020-07-28 18:00] VITALS: BP 150/87; PULSE 79; TEMP 36.4
[2020-07-29] MEDS: OLANZapine 5 MG TABLET PO (08:17)
[2020-07-29 08:21] VITALS: BP 144/81; PULSE 78; RESP 16; TEMP 36.3; O2SAT 98
[2020-07-29] MEDS: ARIPiprazole 10 MG TABLET PO (10:26)
--- NOTE | 2020-07-29 12:45 | P.PNPSI_ITS ---
Subjective Subjective Date of Service: 07/29/20 Reason For Visit: Psychosis Subjective Notes: Conditional Voluntary Interim History: Difficulty with medication compliance. Pt agreed to take meds for his primary nurse this a.m. after refusing last evening. Asks for discharge. Zoom meeting with pt, Gisselle DUQUE and pt's mother. Mother was supportive of pt but clear that in order for him to pursue goals, he needs to accept regular treatment. Will re-assess for discharge early next week-brother may be available to help pt at home, pt reports he will agree to continued medication trial over the weekend. Continues to believe he has recreated the theory of rel ativity and will profit from this. Denies SI, HI. Reports sleep is disturbed due to his room being cold and mattress uncomfortable. Team attempting to address these issues as soon as pt identified them in the meeting. Mother to return on 08/04/20. Medication Compliance: Intermittent Side effects from medications: No Attending Groups: No Review of Systems Review of Systems Yes all other systems are reviewed and are negative Reports behavioral changes Psychiatric: Reports abnormal sleep pattern, Reports anxiety, Reports behavioral changes, Reports difficulty concentrating, Reports irritability and Reports hallucinations (recreating theory of relativity) Mental Status Exam Mental Status Exam Patient Appearance: Appropriate Patient Orientation: Person, Place, Time and Situation Level of Consciousness: Alert Patient Behavior: Guarded, Talkative, Suspicious and Distractible Mood Description: Withdrawn, Constricted, Anxious and Angry Affect Description: Flat Patient Cognition Impaired: Yes Ability to Follow Directions: Fair Speech Pattern: Spontaneous Speech Memory Description: Episodic Impaired Hallucinations: None Delusions: Grandiose and Present Thought Process: Illogical and Distracted Thought Content: positive for Circumstantial, positive for Goal Oriented and positive for Suicidal Ideation (denies) Depressive Symptoms: Increased Anxiety, Diff. Making Decisions, Increased Irritability, Difficulty Sleeping and Unhappiness Abnormal Motor Activity Signs and Symptoms: Restlessness Judgement: Fair Diagnostics Vital Signs (24Hr): Vital Signs - 24 hr 07/28/20 18:00 07/29/20 08:21 Temperature 97.6 F 97.4 F Pulse Rate 79 78 Respiratory Rate 16 Blood Pressure 150/87 H 144/81 H Pulse Oximetry 98 Body Mass Index 31.3 Labs Results: 07/23/20 14:44 07/23/20 14:44 Medications Medications Current Medications Generic Name Dose Route Start Last Admin Trade Name Freq PRN Reason Stop Dose Admin Acetaminophen 650 mg 07/25/20 16:52 Acetaminophen 325 Mg Tablet PO Q6H PRN Headache/Pain Mild Scale (1-3) Al Hydroxide/Mg Hydroxide 30 ml 07/25/20 16:52 Magnesium Hydrox/Alum Hydrox 30 Ml Oral.Susp PO Q6H PRN Heartburn/Nausea Aripiprazole 10 mg 07/29/20 10:00 07/29/20 10:26 Aripiprazole 10 Mg Tablet PO 10 mg DAILY LUIS ALBERTO Administration Benztropine Mesylate 0.5 mg 07/23/20 14:53 07/23/20 20:20 Benztropine Mesylate 0.5 Mg Tablet PO 0.5 mg BID PRN Administration Extrapyramidal Effects Haloperidol 5 mg 07/25/20 16:51 07/28/20 04:35 Haloperidol 5 Mg Tablet PO 5 mg Q4H PRN Administration Psychosis Hydroxyzine HCl 25 mg 07/25/20 16:52 07/26/20 03:23 Hydroxyzine Hcl 25 Mg Tablet PO 25 mg BEDTIME PRN Administration Anxiety Lamotrigine 25 mg 07/24/20 21:00 07/28/20 20:24 Lamotrigine 25 Mg Tablet PO Not Given BEDTIME LUIS ALBERTO Lorazepam 1 mg 07/25/20 15:26 07/28/20 04:35 Lorazepam 1 Mg Tablet PO 1 mg Q4H PRN Administration agitation Magnesium Hydroxide 30 ml 07/25/20 16:52 Milk Of Magnesia 30 Ml Oral.Susp PO DAILY PRN Constipation Olanzapine 5 mg 07/23/20 14:55 07/29/20 08:17 Olanzapine 5 Mg Tablet PO 5 mg Q4H PRN Administration psychotic agitation Trazodone HCl 50 mg 07/25/20 16:52 Trazodone Hcl 50 Mg Tablet PO BEDTIME PRN Insomnia Vitamin D 25 mcg 07/23/20 15:00 07/29/20 08:22 Cholecalciferol (Vitamin D3) 25 Mcg Tablet PO Not Given DAILY LUIS ALBERTO Allergies Allergies Allergy/AdvReac Type Severity Reaction Status Date / Time divalproex sodium Allergy Intermediate UNKNOWN Verified 05/16/20 06:32 [From [facility]] Assessment & Plan Assessment & Plan (1) Posttraumatic stress disorder: Status: Acute Code(s): F43.10 - Post-traumatic stress disorder, unspecified (2) Schizophrenia: Status: Acute Code(s): F20.9 - Schizophrenia, unspecified Assessment and Plan: -Abilify 10 mg a.m. (3) Bipolar disorder: Qualifiers: Active/Remission status: currently active Current bipolar episode type: manic Current episode severity: severe Psychotic features: with psychotic features Qualified Code(s): F31.2 - Bipolar disorder, current episode manic severe with psychotic features Status: Acute Code(s): F31.9 - Bipolar disorder, unspecified Greater than 50% of the session was spent on counseling and/or coordination of care Reason for contiued inpatient stay Substantial Risk for: harm to self, inability to function and rapid decompensation
[2020-07-29 18:00] VITALS: BP 141/67; PULSE 51; TEMP 36.4
[2020-07-29] MEDS: lamoTRIgine 25 MG TABLET PO (21:06)
[2020-07-30] MEDS: ARIPiprazole 10 MG TABLET PO (08:16)
[2020-07-30 08:18] VITALS: BP 146/80; PULSE 94; RESP 16; TEMP 36.7; O2SAT 97
[2020-07-30] MEDS: Cholecalciferol (Vitamin D3) 25 MCG TABLET PO (15:08)
[2020-07-30 18:00] VITALS: BP 139/81; PULSE 107; TEMP 37.2
[2020-07-30] MEDS: lamoTRIgine 25 MG TABLET PO (20:06)
--- NOTE | 2020-07-30 21:06 | HO.PSYCHPN ---
Subjective Subjective Date of Service: 07/30/20 Reason For Visit: Psychosis Subjective Notes: Conditional Voluntary Interim History: Brown has been taking his medication, although he does not think he needs them. Staff report that he has shown marked improvement with the addition of medication. Medication Compliance: Yes Side effects from medications: No Attending Groups: No Review of Systems Acute medical concerns: No Medical Review of Systems: unchanged Review of Systems Review of Systems Yes all other systems are reviewed and are negative Mental Status Exam Mental Status Exam Patient Appearance: Appropriate Patient Orientation: Person, Place, Time and Situation Level of Consciousness: Alert Patient Behavior: Guarded, Talkative, Suspicious and Distractible Mood Description: Withdrawn, Constricted, Anxious and Angry Affect Description: Flat Patient Cognition Impaired: Yes Ability to Follow Directions: Fair Speech Pattern: Spontaneous Speech Memory Description: Episodic Impaired Hallucinations: None Delusions: Grandiose and Present Thought Process: Illogical and Distracted Thought Content: positive for Circumstantial, positive for Goal Oriented, negative for Suicidal Ideation and negative for Homicidal Ideation Depressive Symptoms: Increased Anxiety, Diff. Making Decisions, Increased Irritability, Difficulty Sleeping and Unhappiness Abnormal Motor Activity Signs and Symptoms: Restlessness Judgement: Fair Diagnostics Vital Signs (24Hr): Vital Signs - 24 hr 07/30/20 08:18 07/30/20 18:00 Temperature 98.0 F 98.9 F Pulse Rate 94 107 H Respiratory Rate 16 Blood Pressure 146/80 H 139/81 Pulse Oximetry 97 Body Mass Index 31.3 Labs Results: 07/23/20 14:44 07/23/20 14:44 Medications Medications Current Medications Generic Name Dose Route Start Last Admin Trade Name Enmanuelq PRN Reason Stop Dose Admin Acetaminophen 650 mg 07/25/20 16:52 Acetaminophen 325 Mg Tablet PO Q6H PRN Headache/Pain Mild Scale (1-3) Al Hydroxide/Mg Hydroxide 30 ml 07/25/20 16:52 Magnesium Hydrox/Alum Hydrox 30 Ml Oral.Susp PO Q6H PRN Heartburn/Nausea Aripiprazole 10 mg 07/29/20 10:00 07/30/20 08:16 Aripiprazole 10 Mg Tablet PO 10 mg DAILY LUIS ALBERTO Administration Benztropine Mesylate 0.5 mg 07/23/20 14:53 07/23/20 20:20 Benztropine Mesylate 0.5 Mg Tablet PO 0.5 mg BID PRN Administration Extrapyramidal Effects Haloperidol 5 mg 07/25/20 16:51 07/28/20 04:35 Haloperidol 5 Mg Tablet PO 5 mg Q4H PRN Administration Psychosis Hydroxyzine HCl 25 mg 07/25/20 16:52 07/26/20 03:23 Hydroxyzine Hcl 25 Mg Tablet PO 25 mg BEDTIME PRN Administration Anxiety Lamotrigine 25 mg 07/24/20 21:00 07/30/20 20:06 Lamotrigine 25 Mg Tablet PO 25 mg BEDTIME LUIS ALBERTO Administration Lorazepam 1 mg 07/25/20 15:26 07/28/20 04:35 Lorazepam 1 Mg Tablet PO 1 mg Q4H PRN Administration agitation Magnesium Hydroxide 30 ml 07/25/20 16:52 Milk Of Magnesia 30 Ml Oral.Susp PO DAILY PRN Constipation Olanzapine 5 mg 07/23/20 14:55 07/29/20 08:17 Olanzapine 5 Mg Tablet PO 5 mg Q4H PRN Administration psychotic agitation Trazodone HCl 50 mg 07/25/20 16:52 Trazodone Hcl 50 Mg Tablet PO BEDTIME PRN Insomnia Vitamin D 25 mcg 07/23/20 15:00 07/30/20 15:08 Cholecalciferol (Vitamin D3) 25 Mcg Tablet PO 25 mcg DAILY LUIS ALBERTO Administration Allergies Allergies Allergy/AdvReac Type Severity Reaction Status Date / Time divalproex sodium Allergy Intermediate UNKNOWN Verified 05/16/20 06:32 [From [facility]] Assessment & Plan Assessment & Plan (1) Asperger's disorder: Status: Acute Code(s): F84.5 - Asperger's syndrome (2) Schizophrenia: Status: Acute Code(s): F20.9 - Schizophrenia, unspecified Assessment and Plan: CT current treatment plan Greater than 50% of the session was spent on counseling and/or coordination of care Patient educated on: diagnosis and medication risk/benefits Informed Consent: further education needed Reason for contiued inpatient stay Substantial Risk for: inability to function and rapid decompensation
[2020-07-31 05:35] VITALS: BP 155/97; PULSE 101; RESP 18; TEMP 36.3; O2SAT 99
[2020-07-31] MEDS: ARIPiprazole 10 MG TABLET PO (08:47)
[2020-07-31] MEDS: Cholecalciferol (Vitamin D3) 25 MCG TABLET PO (08:47)
[2020-07-31 08:48] VITALS: BP 133/66; PULSE 71
--- NOTE | 2020-07-31 17:38 | HO.PSYCHPN ---
Subjective Subjective Date of Service: 07/31/20 Reason For Visit: Psychosis Interim History: Brown has been taking his medication, although he does not think he needs them. Staff report that he has shown marked improvement with the addition of medication. He was pleasant and appropriate today. Medication Compliance: Yes Side effects from medications: No Attending Groups: Yes Review of Systems Review of Systems Pertinent positives and negatives as stated in HPI 10 point review systems is otherwise negative. Yes all other systems are reviewed and are negative Genitourinary: Reports change in libido Reports behavioral changes and Reports confusion Psychiatric: Reports abnormal sleep pattern, Reports anxiety, Reports behavioral changes, Reports change in libido, Reports confusion, Reports difficulty concentrating, Reports auditory hallucinations, Reports hopelessness, Reports irritability, Reports anhedonia, Reports mood swings, Reports paranoia, Reports hallucinations (recreating theory of relativity), Reports suicidal ideation and Reports other (delusions of grandeur-believes he has designed a new relativity theory.) Endocrine: Reports change in libido Mental Status Exam Mental Status Exam Patient Appearance: Appropriate Patient Orientation: Person, Place, Time and Situation Level of Consciousness: Alert Patient Behavior: Guarded, Talkative, Suspicious and Distractible Mood Description: Withdrawn, Constricted, Anxious and Angry Affect Description: Flat Patient Cognition Impaired: Yes Ability to Follow Directions: Fair Speech Pattern: Spontaneous Speech Memory Description: Episodic Impaired Delusions: Not Present Thought Process: Goal Oriented Thought Content: positive for Circumstantial Judgement: Fair Diagnostics Vital Signs (24Hr): Vital Signs - 24 hr 07/30/20 18:00 07/31/20 05:35 07/31/20 08:48 Temperature 98.9 F 97.4 F Pulse Rate 107 H 101 H 71 Respiratory Rate 18 Blood Pressure 139/81 155/97 H 133/66 Pulse Oximetry 99 Body Mass Index 31.3 Labs Results: 07/23/20 14:44 07/23/20 14:44 Medications Medications Current Medications Generic Name Dose Route Start Last Admin Trade Name Freq PRN Reason Stop Dose Admin Acetaminophen 650 mg 07/25/20 16:52 Acetaminophen 325 Mg Tablet PO Q6H PRN Headache/Pain Mild Scale (1-3) Al Hydroxide/Mg Hydroxide 30 ml 07/25/20 16:52 Magnesium Hydrox/Alum Hydrox 30 Ml Oral.Susp PO Q6H PRN Heartburn/Nausea Aripiprazole 10 mg 07/29/20 10:00 07/31/20 08:47 Aripiprazole 10 Mg Tablet PO 10 mg DAILY LUIS ALBERTO Administration Benztropine Mesylate 0.5 mg 07/23/20 14:53 07/23/20 20:20 Benztropine Mesylate 0.5 Mg Tablet PO 0.5 mg BID PRN Administration Extrapyramidal Effects Haloperidol 5 mg 07/25/20 16:51 07/28/20 04:35 Haloperidol 5 Mg Tablet PO 5 mg Q4H PRN Administration Psychosis Hydroxyzine HCl 25 mg 07/25/20 16:52 07/26/20 03:23 Hydroxyzine Hcl 25 Mg Tablet PO 25 mg BEDTIME PRN Administration Anxiety Lamotrigine 25 mg 07/24/20 21:00 07/30/20 20:06 Lamotrigine 25 Mg Tablet PO 25 mg BEDTIME LUIS ALBERTO Administration Lorazepam 1 mg 07/25/20 15:26 07/28/20 04:35 Lorazepam 1 Mg Tablet PO 1 mg Q4H PRN Administration agitation Magnesium Hydroxide 30 ml 07/25/20 16:52 Milk Of Magnesia 30 Ml Oral.Susp PO DAILY PRN Constipation Olanzapine 5 mg 07/23/20 14:55 07/29/20 08:17 Olanzapine 5 Mg Tablet PO 5 mg Q4H PRN Administration psychotic agitation Trazodone HCl 50 mg 07/25/20 16:52 Trazodone Hcl 50 Mg Tablet PO BEDTIME PRN Insomnia Vitamin D 25 mcg 07/23/20 15:00 07/31/20 08:47 Cholecalciferol (Vitamin D3) 25 Mcg Tablet PO 25 mcg DAILY LUIS ALBERTO Administration Allergies Allergies Allergy/AdvReac Type Severity Reaction Status Date / Time divalproex sodium Allergy Intermediate UNKNOWN Verified 05/16/20 06:32 [From [facility]] Assessment & Plan Assessment & Plan (1) Asperger's disorder: Status: Acute Code(s): F84.5 - Asperger's syndrome (2) Schizophrenia: Status: Acute Code(s): F20.9 - Schizophrenia, unspecified Assessment and Plan: CT current treatment plan Greater than 50% of the session was spent on counseling and/or coordination of care Reason for contiued inpatient stay Substantial Risk for: inability to function and rapid decompensation
[2020-07-31 18:00] VITALS: BP 157/77; PULSE 62; TEMP 36.3
[2020-07-31] MEDS: lamoTRIgine 25 MG TABLET PO (20:33)
[2020-08-01 06:40] VITALS: BP 150/76; PULSE 93; RESP 16; TEMP 36.7; O2SAT 100
[2020-08-01] MEDS: ARIPiprazole 10 MG TABLET PO (09:21)
[2020-08-01] MEDS: Cholecalciferol (Vitamin D3) 25 MCG TABLET PO (09:21)
--- NOTE | 2020-08-01 15:36 | P.PNPSI_ITS ---
Subjective Subjective Date of Service: 08/01/20 Reason For Visit: Psychosis Subjective Notes: Conditional Voluntary Interim History: Compliant with medications over the weekend. The plan was to make contact with brother to see if he was comfortable providing support to pt until his mother's return. Brother reports no relationship with pt and he is not comfortable with that role. Discussed with pt and asked him to wait for mother's return on 08/04/20 for discharge. Pt acknowledged estranged relationship with brother, but finds it difficult to accept he will not be of assistance to him with a discharge plan. As mother is pt's guardian, and given events precipita ting in pt care, there is no safe discharge plan currently, as the other person in the home is elderly and unable to meet pt's needs. Pt denies SI, denies all sx. He continues to market his new theory of relativity as a financial avenue for his planned move to [place], along with pending lawsuit. Pt denies medication SE and expressed his distress with brother's lack of support. Medication Compliance: Yes Side effects from medications: No Attending Groups: No Review of Systems Review of Systems Yes all other systems are reviewed and are negative (denies) Reports behavioral changes Psychiatric: Reports behavioral changes, Reports difficulty concentrating, Reports irritability, Reports paranoia, Reports homicidal ideation (denies) and Reports suicidal ideation (denies) Mental Status Exam Mental Status Exam Patient Appearance: Appropriate Patient Orientation: Person, Place, Time and Situation Level of Consciousness: Alert Patient Behavior: Talkative, Suspicious, Restless, Anxious, Distractible and Good Eye Contact Diagnostics Vital Signs (24Hr): Vital Signs - 24 hr 07/31/20 18:00 08/01/20 06:40 Temperature 97.3 F 98.1 F Pulse Rate 62 93 Respiratory Rate 16 Blood Pressure 157/77 H 150/76 H Pulse Oximetry 100 Body Mass Index 31.3 Labs Results: 07/23/20 14:44 07/23/20 14:44 Medications Medications Current Medications Generic Name Dose Route Start Last Admin Trade Name Freq PRN Reason Stop Dose Admin Acetaminophen 650 mg 07/25/20 16:52 Acetaminophen 325 Mg Tablet PO Q6H PRN Headache/Pain Mild Scale (1-3) Al Hydroxide/Mg Hydroxide 30 ml 07/25/20 16:52 Magnesium Hydrox/Alum Hydrox 30 Ml Oral.Susp PO Q6H PRN Heartburn/Nausea Aripiprazole 10 mg 07/29/20 10:00 08/01/20 09:21 Aripiprazole 10 Mg Tablet PO 10 mg DAILY LUIS ALBERTO Administration Benztropine Mesylate 0.5 mg 07/23/20 14:53 07/23/20 20:20 Benztropine Mesylate 0.5 Mg Tablet PO 0.5 mg BID PRN Administration Extrapyramidal Effects Haloperidol 5 mg 07/25/20 16:51 07/28/20 04:35 Haloperidol 5 Mg Tablet PO 5 mg Q4H PRN Administration Psychosis Hydroxyzine HCl 25 mg 07/25/20 16:52 07/26/20 03:23 Hydroxyzine Hcl 25 Mg Tablet PO 25 mg BEDTIME PRN Administration Anxiety Lamotrigine 25 mg 07/24/20 21:00 07/31/20 20:33 Lamotrigine 25 Mg Tablet PO 25 mg BEDTIME LUIS ALBERTO Administration Lorazepam 1 mg 07/25/20 15:26 07/28/20 04:35 Lorazepam 1 Mg Tablet PO 1 mg Q4H PRN Administration agitation Magnesium Hydroxide 30 ml 07/25/20 16:52 Milk Of Magnesia 30 Ml Oral.Susp PO DAILY PRN Constipation Olanzapine 5 mg 07/23/20 14:55 07/29/20 08:17 Olanzapine 5 Mg Tablet PO 5 mg Q4H PRN Administration psychotic agitation Trazodone HCl 50 mg 07/25/20 16:52 Trazodone Hcl 50 Mg Tablet PO BEDTIME PRN Insomnia Vitamin D 25 mcg 07/23/20 15:00 08/01/20 09:21 Cholecalciferol (Vitamin D3) 25 Mcg Tablet PO 25 mcg DAILY LUIS ALBERTO Administration Allergies Allergies Allergy/AdvReac Type Severity Reaction Status Date / Time divalproex sodium Allergy Intermediate UNKNOWN Verified 05/16/20 06:32 [From [facility]] Assessment & Plan Assessment & Plan (1) Asperger's disorder: Status: Acute Code(s): F84.5 - Asperger's syndrome (2) Posttraumatic stress disorder: Status: Acute Code(s): F43.10 - Post-traumatic stress disorder, unspecified (3) Schizophrenia: Status: Acute Code(s): F20.9 - Schizophrenia, unspecified Assessment and Plan: -Continue current medication regime. (4) Bipolar disorder: Qualifiers: Active/Remission status: currently active Current bipolar episode type: manic Current episode severity: severe Psychotic features: with psychotic features Qualified Code(s): F31.2 - Bipolar disorder, current episode manic severe with psychotic features Status: Acute Code(s): F31.9 - Bipolar disorder, unspecified Greater than 50% of the session was spent on counseling and/or coordination of care Reason for contiued inpatient stay Substantial Risk for: harm to self, harm to others, inability to function and rapid decompensation
[2020-08-01 18:00] VITALS: RESP 16
[2020-08-01] MEDS: lamoTRIgine 25 MG TABLET PO (20:46)
[2020-08-02 05:45] VITALS: BP 151/83; PULSE 68; RESP 16; TEMP 36.2; O2SAT 100
[2020-08-02] MEDS: ARIPiprazole 10 MG TABLET PO (09:08)
[2020-08-02] MEDS: Cholecalciferol (Vitamin D3) 25 MCG TABLET PO (09:08)
--- NOTE | 2020-08-02 17:15 | HO.PSYCHPN ---
Subjective Subjective Date of Service: 08/02/20 Reason For Visit: Psychosis Subjective Notes: Conditional Voluntary Interim History: Discharge planning for 08/04. Mother will be home at that time. Brother is uncomfortable having pt at home before mother arrives-they are estranged for a few years. Pt expressed anger-citing phone connections being down yesterday, asking for another call with brother to ask him again. 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 Discussed precipitants to admission and that being alone was a factor along with misperceptions. Pt corrected TW regarding precipitants and shared his perspectives. Denies SI, HI. Declined OP referrals initially, then accepted psychopharmacology referral. Continues to have delusional content regarding his new theory of relativity and the kathi impact it will have for him. Medication Compliance: Yes Side effects from medications: No Attending Groups: No Review of Systems Review of Systems Yes all other systems are reviewed and are negative Reports behavioral changes Psychiatric: Reports anxiety, Reports behavioral changes, Reports irritability and Reports hallucinations Mental Status Exam Mental Status Exam Patient Appearance: Appropriate Patient Orientation: Person, Place, Time and Situation Level of Consciousness: Alert Patient Behavior: Guarded, Talkative, Suspicious, Restless, Anxious, Resistive to Care, Avoidant, Distractible, Isolative and Good Eye Contact Mood Description: Apathetic, Suspicious, Withdrawn, Constricted, Depressed, Hostile, Anxious, Labile and Angry Affect Description: Constricted Patient Cognition Impaired: No Ability to Follow Directions: Good Speech Pattern: Spontaneous Speech and Soft-Spoken Memory Description: Episodic Impaired Hallucinations: None Delusions: Present Thought Process: Illogical and Distracted Thought Content: positive for [place], positive for Circumstantial, positive for Goal Oriented, positive for Perseveration, positive for Preoccupation, positive for Suicidal Ideation (denies) and positive for Homicidal Ideation (denies) Depressive Symptoms: Diff. Making Decisions, Increased Irritability and Thoughts of /Suicide (denies) Judgement: Fair Diagnostics Vital Signs (24Hr): Vital Signs - 24 hr 08/01/20 18:00 08/02/20 05:45 Temperature 97.2 F Pulse Rate 68 Respiratory Rate 16 16 Blood Pressure 151/83 H Pulse Oximetry 100 Body Mass Index 31.3 Labs Results: 07/23/20 14:44 07/23/20 14:44 Medications Medications Current Medications Generic Name Dose Route Start Last Admin Trade Name Freq PRN Reason Stop Dose Admin Acetaminophen 650 mg 07/25/20 16:52 Acetaminophen 325 Mg Tablet PO Q6H PRN Headache/Pain Mild Scale (1-3) Al Hydroxide/Mg Hydroxide 30 ml 07/25/20 16:52 Magnesium Hydrox/Alum Hydrox 30 Ml Oral.Susp PO Q6H PRN Heartburn/Nausea Aripiprazole 10 mg 07/29/20 10:00 08/02/20 09:08 Aripiprazole 10 Mg Tablet PO 10 mg DAILY LUIS ALBERTO Administration Benztropine Mesylate 0.5 mg 07/23/20 14:53 07/23/20 20:20 Benztropine Mesylate 0.5 Mg Tablet PO 0.5 mg BID PRN Administration Extrapyramidal Effects Haloperidol 5 mg 07/25/20 16:51 07/28/20 04:35 Haloperidol 5 Mg Tablet PO 5 mg Q4H PRN Administration Psychosis Hydroxyzine HCl 25 mg 07/25/20 16:52 07/26/20 03:23 Hydroxyzine Hcl 25 Mg Tablet PO 25 mg BEDTIME PRN Administration Anxiety Lamotrigine 25 mg 07/24/20 21:00 08/01/20 20:46 Lamotrigine 25 Mg Tablet PO 25 mg BEDTIME LUIS ALBERTO Administration Lorazepam 1 mg 07/25/20 15:26 07/28/20 04:35 Lorazepam 1 Mg Tablet PO 1 mg Q4H PRN Administration agitation Magnesium Hydroxide 30 ml 07/25/20 16:52 Milk Of Magnesia 30 Ml Oral.Susp PO DAILY PRN Constipation Olanzapine 5 mg 07/23/20 14:55 07/29/20 08:17 Olanzapine 5 Mg Tablet PO 5 mg Q4H PRN Administration psychotic agitation Trazodone HCl 50 mg 07/25/20 16:52 Trazodone Hcl 50 Mg Tablet PO BEDTIME PRN Insomnia Vitamin D 25 mcg 07/23/20 15:00 08/02/20 09:08 Cholecalciferol (Vitamin D3) 25 Mcg Tablet PO 25 mcg DAILY LUIS ALBERTO Administration Allergies Allergies Allergy/AdvReac Type Severity Reaction Status Date / Time divalproex sodium Allergy Intermediate UNKNOWN Verified 05/16/20 06:32 [From DEPAKOTE] Assessment & Plan Assessment & Plan (1) Posttraumatic stress disorder: Status: Acute Code(s): F43.10 - Post-traumatic stress disorder, unspecified (2) Asperger's disorder: Status: Acute Code(s): F84.5 - Asperger's syndrome (3) Bipolar disorder: Qualifiers: Active/Remission status: currently active Current bipolar episode type: manic Current episode severity: severe Psychotic features: with psychotic features Qualified Code(s): F31.2 - Bipolar disorder, current episode manic severe with psychotic features Status: Acute Code(s): F31.9 - Bipolar disorder, unspecified Greater than 50% of the session was spent on counseling and/or coordination of care Reason for contiued inpatient stay Substantial Risk for: inability to function and rapid decompensation
[2020-08-02 18:00] VITALS: BP 145/76; PULSE 68; TEMP 37.1
[2020-08-02] MEDS: lamoTRIgine 25 MG TABLET PO (20:34)
[2020-08-03] MEDS: HaloperidoL 5 MG TABLET PO (02:15)
[2020-08-03] MEDS: traZODone HCL 50 MG TABLET PO (02:15)
[2020-08-03 05:00] VITALS: BP 132/76; PULSE 63; RESP 16; TEMP 36.1; O2SAT 97
[2020-08-03] MEDS: Cholecalciferol (Vitamin D3) 25 MCG TABLET PO (09:18)
[2020-08-03] MEDS: ARIPiprazole 10 MG TABLET PO (09:18)
--- NOTE | 2020-08-03 12:30 | HO.PSYCHPN ---
Subjective Subjective Date of Service: 08/03/20 Reason For Visit: Psychosis Subjective Notes: Conditional Voluntary Interim History: I am bored. Pt visable in milieu, socializing with peers. Continues to report feeling irritable that he needs to wait until mother is coming home on 08/04 for discharge. States that he is upset that she needed to travel for work and left him. Attempted to help pt to focus on his goals, how consistent treatment may help to achieve his goals and that this is his mother's hope for him as based upon our meeting last week. Pt agrees, however, believes he would not have needed in pt hospitalization if she had been at home. Discussed ways to develop independence and supports for increased self-reliance Medication Compliance: Yes Side effects from medications: No (denies) Attending Groups: No Review of Systems Review of Systems Yes all other systems are reviewed and are negative (denies) Reports behavioral changes Psychiatric: Reports anxiety, Reports behavioral changes, Reports irritability and Reports other (no mention today of the change of relativity theory he developed on admit ) Mental Status Exam Mental Status Exam Patient Appearance: Appropriate Patient Orientation: Person, Place, Time and Situation Level of Consciousness: Alert Patient Behavior: Appropriate, Guarded, Talkative, Cooperative and Good Eye Contact Diagnostics Vital Signs (24Hr): Vital Signs - 24 hr 08/02/20 18:00 08/03/20 05:00 Temperature 98.8 F 97.0 F Pulse Rate 68 63 Respiratory Rate 16 Blood Pressure 145/76 H 132/76 Pulse Oximetry 97 Body Mass Index 31.3 Labs Results: 07/23/20 14:44 07/23/20 14:44 Medications Medications Current Medications Generic Name Dose Route Start Last Admin Trade Name Enmanuelq PRN Reason Stop Dose Admin Acetaminophen 650 mg 07/25/20 16:52 Acetaminophen 325 Mg Tablet PO Q6H PRN Headache/Pain Mild Scale (1-3) Al Hydroxide/Mg Hydroxide 30 ml 07/25/20 16:52 Magnesium Hydrox/Alum Hydrox 30 Ml Oral.Susp PO Q6H PRN Heartburn/Nausea Aripiprazole 10 mg 07/29/20 10:00 08/03/20 09:18 Aripiprazole 10 Mg Tablet PO 10 mg DAILY LUIS ALBERTO Administration Benztropine Mesylate 0.5 mg 07/23/20 14:53 07/23/20 20:20 Benztropine Mesylate 0.5 Mg Tablet PO 0.5 mg BID PRN Administration Extrapyramidal Effects Haloperidol 5 mg 07/25/20 16:51 08/03/20 02:15 Haloperidol 5 Mg Tablet PO 5 mg Q4H PRN Administration Psychosis Hydroxyzine HCl 25 mg 07/25/20 16:52 07/26/20 03:23 Hydroxyzine Hcl 25 Mg Tablet PO 25 mg BEDTIME PRN Administration Anxiety Lamotrigine 25 mg 07/24/20 21:00 08/02/20 20:34 Lamotrigine 25 Mg Tablet PO 25 mg BEDTIME LUIS ALBERTO Administration Lorazepam 1 mg 07/25/20 15:26 07/28/20 04:35 Lorazepam 1 Mg Tablet PO 1 mg Q4H PRN Administration agitation Magnesium Hydroxide 30 ml 07/25/20 16:52 Milk Of Magnesia 30 Ml Oral.Susp PO DAILY PRN Constipation Olanzapine 5 mg 07/23/20 14:55 07/29/20 08:17 Olanzapine 5 Mg Tablet PO 5 mg Q4H PRN Administration psychotic agitation Trazodone HCl 50 mg 07/25/20 16:52 08/03/20 02:15 Trazodone Hcl 50 Mg Tablet PO 50 mg BEDTIME PRN Administration Insomnia Vitamin D 25 mcg 07/23/20 15:00 08/03/20 09:18 Cholecalciferol (Vitamin D3) 25 Mcg Tablet PO 25 mcg DAILY LUIS ALBERTO Administration Allergies Allergies Allergy/AdvReac Type Severity Reaction Status Date / Time divalproex sodium Allergy Intermediate UNKNOWN Verified 05/16/20 06:32 [From DEPAKOTE] Assessment & Plan Assessment & Plan (1) Schizophrenia: Status: Acute Code(s): F20.9 - Schizophrenia, unspecified Assessment and Plan: -Tolerating Abilify. Continue dosing -Tentative discharge for 08/04/20, with confirmation from mother that she will arrive home on that day. -Delusion of re-writing of the relativity theory is absent today from pt's discussion. (2) Posttraumatic stress disorder: Status: Acute Code(s): F43.10 - Post-traumatic stress disorder, unspecified Assessment and Plan: Out pt appointments to be scheduled for pt to continue to work on this. Pt believes that a financial outcome from his lawsuit with [employer] will help this issue to resolve in a positive way. 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 Currently, he does not believe there is an issue to address. (4) Bipolar disorder: Qualifiers: Active/Remission status: currently active Current bipolar episode type: manic Current episode severity: severe Psychotic features: with psychotic features Qualified Code(s): F31.2 - Bipolar disorder, current episode manic severe with psychotic features Status: Acute Code(s): F31.9 - Bipolar disorder, unspecified Assessment and Plan: Mood is stable. Pt is wanting to return home. He does not want to be in hospital. Continue Abilify, Lamictal. Greater than 50% of the session was spent on counseling and/or coordination of care Reason for contiued inpatient stay Substantial Risk for: inability to function and rapid decompensation
[2020-08-03 17:05] VITALS: BP 146/75; PULSE 84; TEMP 36.5
[2020-08-03] MEDS: lamoTRIgine 25 MG TABLET PO (21:30)
[2020-08-04 06:25] VITALS: BP 141/77; PULSE 62; RESP 16; TEMP 36.4; O2SAT 98
[2020-08-04] MEDS: Cholecalciferol (Vitamin D3) 25 MCG TABLET PO (08:40)
[2020-08-04] MEDS: ARIPiprazole 10 MG TABLET PO (08:40)
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
== END 2020-08-04 10:39 | disposition home or self-care (01) | DRG 753 ==
LOC: HO.ED 14:44 → HO.PM5 07-25 15:10
PROVIDERS: Physician Assistant Medical; Admitting Provider Psychiatry & Neurology Psychiatry; Emergency Provider Student in an Organized Health Care Education/Training Program; Visit Provider Clinical Nurse Specialist Psychiatric/Mental Health, Adult
DX: F31.2 Bipolar disorder, current episode manic severe with psychotic features (principal); Z91.14 Patient's other noncompliance with medication regimen; F43.10 Post-traumatic stress disorder, unspecified; F84.5 Asperger's syndrome; Z20.822 Contact with and (suspected) exposure to COVID-19; Z79.899 Other long term (current) drug therapy
CPT/HCPCS: 36415; 80048; 80053; 80076; 80307; 80320; 83690; 83735; 84443; 85025; 85610; 87635; 93005; 99232; 99285; Q0163

== ENCOUNTER 2020-08-15 21:21 | Inpatient (IN) | payer OTHER, MEDICAID, SELFPAY ==
[2020-08-15 21:35] VITALS: RESP 18; BMI 29.6
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
[2020-08-15 21:55] VITALS: RESP 20
[2020-08-15 22:10] VITALS: RESP 20
[2020-08-15] MEDS: LORazepam 2 MG/ML VIAL IM (22:22)
[2020-08-15] MEDS: Haloperidol Lactate 5 MG/ML VIAL 10 MG IM (22:22)
[2020-08-15 22:25] VITALS: RESP 20
[2020-08-15 22:40] VITALS: RESP 20
--- NOTE | 2020-08-15 22:40 | PC.NURSE ---
Patient was grossly decompensated, violent and aggressive intermittently, non re-directable, sexually inappropriate to staff member, provider notified/ordered Ativan 2 mg IM and Haldol 10 mg IM, security called for support, it took lot of time to convince the patient eventually agreed to take. will continue to monitor.
[2020-08-15 22:55] VITALS: RESP 18
--- NOTE | 2020-08-16 07:23 | PC.NURSE ---
Report received from SANDRA Long. Pt resting, resp unlabored.
[2020-08-16] MEDS: ARIPiprazole 10 MG TABLET PO (10:21)
--- NOTE | 2020-08-16 10:35 | PC.NURSE ---
Pt awakened - pt agreed to remove pants but not t-shirt. Initially pt spit out all medications but then agreed to take the abilify. Pt ambulated to bathroom, currently eating breakfast. N called to notify that pt is awake.
--- NOTE | 2020-08-16 10:59 | PC.NURSE ---
Pt continues to be very angry at times, paranoid, swearing at teletypewriter installer, accusing of lying about the cameras. Pt reminded that he just woke up but continues to be angry, paranoid- willing to converse w/ MHA and security only at this time.
[2020-08-16 11:09] LABS: COVID-19 Test Negative (Negative); IDNOW Serial# 9DD0AD1C
--- NOTE | 2020-08-16 11:35 | PC.NURSE ---
Pt continues to be pressured, dramatic, loud at times.
--- NOTE | 2020-08-16 12:28 | MHC.CARE ---
[address] [facility], spoke to Vida regarding patient waiting one hour since nurse called with referral (patient had been sedated and could not be seen earlier). Stated that a clinician has been assigned, was gathering materials and should be here shortly.
[2020-08-16 14:00] VITALS: RESP 20
--- NOTE | 2020-08-16 15:26 | PC.NURSE ---
Pt continues to be pressured, loud, theatrical but no longer threatening, less irritable.
[2020-08-16 16:08] VITALS: BP 148/93; PULSE 112; RESP 16; TEMP 36.6; O2SAT 99
[2020-08-16] MEDS: LORazepam 2 MG/ML VIAL IVPUSH (17:56)
[2020-08-16] MEDS: Haloperidol Lactate 5 MG/ML VIAL 10 MG IM (17:59)
--- NOTE | 2020-08-16 18:03 | PC.NURSE ---
Pt becoming increasing irritable re: dinner despite several sandwiches and reminders re: time of dinner. Pt began to punch television and swore at staff. Security in, Dr Gloria called. Pt medicated as ordered. Pt accepted IM medications without agitation.
--- NOTE | 2020-08-16 18:40 | PC.NURSE ---
Pt resting, resp unlabored
--- NOTE | 2020-08-16 20:54 | PC.NURSE ---
Patient is s/p chemical restraint, patient sleeping, 2100 hours medication was held per provider may be given when patient is awake, respiration +/=/non-labored bilaterally, will continue to monitor.
[2020-08-16 22:00] VITALS: RESP 18
[2020-08-17] MEDS: LORazepam 1 MG TABLET 2 MG PO (04:45)
[2020-08-17] MEDS: HaloperidoL 5 MG TABLET 10 MG PO (04:45)
--- NOTE | 2020-08-17 07:11 | PC.NURSE ---
Report received. PT currently sleeping, respirations even and unlabored, in no apparent distress. PT is inpatient bedsearch.
[2020-08-17 09:04] VITALS: RESP 18
--- NOTE | 2020-08-17 11:03 | PC.NURSE ---
When offered medication pt told this RN to Fuck off . Will attempt to give medications again.
[2020-08-17] MEDS: ARIPiprazole 10 MG TABLET PO (11:48)
[2020-08-17] MEDS: OLANZapine 5 MG TABLET PO ×2 (16:49→20:29)
--- NOTE | 2020-08-17 16:51 | PC.NURSE ---
PT requested abilify, explailed that he already had his dose of abilify today. PT offered and declined haldol. Pt offered and accepted zyprexa. PT calm and cooperative. Grandiose at times.
[2020-08-17 19:31] VITALS: BP 137/95; PULSE 120; RESP 20; TEMP 36.4; O2SAT 98
[2020-08-17] MEDS: lamoTRIgine 25 MG TABLET PO (20:29)
[2020-08-18 04:24] VITALS: BP 107/44; PULSE 61; RESP 16; TEMP 36.4; O2SAT 97
[2020-08-18] MEDS: HaloperidoL 5 MG TABLET 10 MG PO (04:30)
--- NOTE | 2020-08-18 04:30 | PC.NURSE ---
Patient came out of room, grandiose to staff member, PRN Haldol 10 mg administered as ordered, pending effect.
[2020-08-18 07:55] LABS: Amphetamine Screen Urine Not Detected (Not Detect); Barbiturates, Urine Not Detected (Not Detect); Benzodiazepines Screen Urine Not Detected (Not Detect); Cannabinoid Screen Urine Not Detected (Not Detect); Cocaine Screen Urine Not Detected (Not Detect); Opiate Screen Urine Not Detected (Not Detect); Phencyclidine Screen Urine Not Detected (Not Detect)
[2020-08-18] MEDS: Cholecalciferol (Vitamin D3) 25 MCG TABLET PO (08:08)
[2020-08-18] MEDS: ARIPiprazole 10 MG TABLET PO (08:08)
[2020-08-18 09:09] VITALS: BP 137/87; PULSE 96; RESP 17; TEMP 35.6; O2SAT 100
--- NOTE | 2020-08-18 11:44 | PC.NURSE ---
Report received. Pt currently standing at RN station. Calm, cooperative, no complaints at this time. Continues to be a section 12 bed search.
[2020-08-18] MEDS: LORazepam 1 MG TABLET 2 MG PO (15:16)
--- NOTE | 2020-08-18 15:31 | PC.NURSE ---
Pt standing at the RN station, anxious, tearful, asking to hold someone's hand, I didn't destroy anything did I? , kneeling on the ground. Walked to room with encouragement. Accepting of PRN ativan as ordered (JUN). Currently sitting in on bed, calm.
--- NOTE | 2020-08-18 16:19 | PC.NURSE ---
Ativan had positive effect, pt calm, laughing, socializing with staff, playing TAN.
[2020-08-18 18:53] VITALS: BP 149/72; PULSE 90; TEMP 37.1
[2020-08-18] MEDS: OLANZapine 5 MG TABLET PO (20:29)
--- NOTE | 2020-08-18 21:51 | PC.ADMIT ---
Pt is a 25 year old Indonesian speaking male who [place] [facility]35 on a cv status. Pt is covid - utox-. Pt has been known to in the past. Pt has been decompensation after non compliant with his prescribed medications since his discharge from . Pt has not been eating well or sleeping and is generally afraid. Pt has exhibited disorganized thoughts, disorientation and paranoia. Pt is hyperverbal and will at times speak in nonsensical fashion. Doctor called for orders and notified of admission. Pt on 15 min safety checks. Pt denies pain.
[2020-08-19 04:40] VITALS: BP 156/75; PULSE 85; RESP 18; TEMP 36.3; O2SAT 100
[2020-08-19] MEDS: LORazepam 1 MG TABLET 2 MG PO (05:30)
[2020-08-19] MEDS: ARIPiprazole 10 MG TABLET PO (08:10)
[2020-08-19 09:07] LABS: Cholesterol 161 mg/dL; HDL Cholesterol 46 mg/dL; LDL Cholesterol Calculated 100 mg/dl; Magnesium 2.3 mg/dL (1.6-2.6); Triglycerides 75 mg/dL
[2020-08-19 09:23] LABS: Free T4 (Free Thyroxine) 0.92 ng/dL (0.71-1.85); Thyroid Stimulating Hormone 0.43 uIU/mL (0.32-4.0)
[2020-08-19 09:34] LABS: Vitamin B12 368 pg/mL (200-900)
[2020-08-19 10:47] LABS: Estimated Average Glucose 88 mg/dL; Hemoglobin A1C 112.3739 umol/L; Hemoglobin A1c % 4.7 %
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
[2020-08-19 18:00] VITALS: BP 150/77; PULSE 96; TEMP 37.4
[2020-08-19] MEDS: lamoTRIgine 25 MG TABLET PO (20:33)
[2020-08-19] MEDS: OLANZapine 5 MG TABLET PO (20:33)
[2020-08-20] MEDS: LORazepam 1 MG TABLET 2 MG PO (04:56)
[2020-08-20 06:39] VITALS: BP 122/69; PULSE 90; TEMP 36.4
[2020-08-20] MEDS: Cholecalciferol (Vitamin D3) 25 MCG TABLET PO (09:18)
[2020-08-20] MEDS: ARIPiprazole 10 MG TABLET PO (09:18)
--- NOTE | 2020-08-20 12:36 | P.PNPSI_ITS ---
Subjective Subjective Date of Service: 08/20/20 Reason For Visit: PTSD, autism spectrum disorder, schizophrenia Subjective Notes: Meredith Warning and 3 Day Interim History: Brown was somewhat expansive and intrusive, but he was easily re-directed. He was able to acknowledge that he has been helped being in the hospital. For the most part he is taking his medications as prescirbed. He is hoping to go home next week Medication Compliance: Yes Side effects from medications: No Attending Groups: Yes Review of Systems Acute medical concerns: No Medical Review of Systems: unchanged Mental Status Exam Mental Status Exam Patient Appearance: Well Grooomed Patient Orientation: Person, Place, Time and Situation Level of Consciousness: Awake and Restless Patient Behavior: Guarded and Cooperative Mood Description: Calm Affect Description: Happy, Cheerful and Expansive Patient Cognition Impaired: No Ability to Follow Directions: Good Speech Pattern: Rambling and Pressured Memory Description: Intact Hallucinations: None Delusions: Paranoid Ideation and Grandiose Thought Process: Incoherent, Racing and Illogical Thought Content: positive for Loose Associations, positive for Thought Blocking, positive for Disorganized, negative for Suicidal Ideation and negative for Homicidal Ideation Abnormal Motor Activity Signs and Symptoms: Restlessness Judgement: Poor Diagnostics Vital Signs (24Hr): Vital Signs - 24 hr 08/19/20 18:00 08/20/20 06:39 Temperature 99.3 F 97.5 F Pulse Rate 96 90 Blood Pressure 150/77 H 122/69 Body Mass Index 29.6 Labs Labs: Laboratory Results - last 48 hr 08/19/20 08/19/20 08/19/20 07:55 07:55 07:55 Estimat Average Glucose 88 Hemoglobin A1c % 4.7 Magnesium 2.3 Triglycerides 75 Cholesterol 161 LDL Cholesterol, Calc 100 HDL Cholesterol 46 Vitamin B12 368 Folate 19.0 TSH 0.43 Free T4 0.92 Medications Medications Current Medications Generic Name Dose Route Start Last Admin Trade Name Freq PRN Reason Stop Dose Admin Acetaminophen 650 mg 08/18/20 16:56 Acetaminophen 325 Mg Tablet PO Q6H PRN Headache/Pain Mild Scale (1-3) Al Hydroxide/Mg Hydroxide 30 ml 08/18/20 16:56 Magnesium Hydrox/Alum Hydrox 30 Ml Oral.Susp PO Q6H PRN Heartburn/Nausea Aripiprazole 10 mg 08/16/20 09:00 08/20/20 09:18 Aripiprazole 10 Mg Tablet PO 10 mg DAILY [facility] Administration Benztropine Mesylate 0.5 mg 08/16/20 05:31 Benztropine Mesylate 0.5 Mg Tablet PO TID PRN Extrapyramidal Effects Haloperidol 10 mg 08/17/20 04:31 08/18/20 04:30 Haloperidol 5 Mg Tablet PO 10 mg QID PRN Administration Agitation Hydroxyzine HCl 25 mg 08/18/20 16:56 Hydroxyzine Hcl 25 Mg Tablet PO BEDTIME PRN Anxiety Lamotrigine 25 mg 08/16/20 21:00 08/19/20 20:33 Lamotrigine 25 Mg Tablet PO 25 mg BEDTIME [facility]ERT[facility] Administration Lorazepam 2 mg 08/17/20 04:31 08/20/20 04:56 Lorazepam 1 Mg Tablet PO 2 mg QID PRN Administration Agitation Magnesium Hydroxide 30 ml 08/18/20 16:56 Milk Of Magnesia 30 Ml Oral.Susp PO DAILY PRN Constipation Olanzapine 5 mg 08/16/20 21:00 08/19/20 20:33 Olanzapine 5 Mg Tablet PO 5 mg BEDTIME [facility] Administration Trazodone HCl 50 mg 08/18/20 16:56 Trazodone Hcl 50 Mg Tablet PO BEDTIME PRN Insomnia Vitamin D 25 mcg 08/16/20 09:00 08/20/20 09:18 Cholecalciferol (Vitamin D3) 25 Mcg Tablet PO 25 mcg DAILY [facility] Administration Allergies Allergies Allergy/AdvReac Type Severity Reaction Status Date / Time divalproex sodium Allergy Intermediate UNKNOWN Verified 05/16/20 06:32 [[facility] Assessment & Plan Assessment & Plan (1) Schizophrenia: Qualifiers: Schizophrenia type: undifferentiated schizophrenia Qualified Code(s): F20.3 - Undifferentiated schizophrenia Status: Acute Code(s): F20.9 - Schizophrenia, unspecified Assessment and Plan: CT treatment plan with no change. Greater than 50% of the session was spent on counseling and/or coordination of care Reason for contiued inpatient stay Substantial Risk for: inability to function and rapid decompensation
[2020-08-20 16:26] VITALS: BP 143/82
[2020-08-20 18:00] VITALS: BP 143/82; PULSE 80; RESP 16; TEMP 36.8; O2SAT 99
[2020-08-20] MEDS: OLANZapine 5 MG TABLET PO (20:39)
[2020-08-20] MEDS: lamoTRIgine 25 MG TABLET PO (20:39)
[2020-08-21] MEDS: LORazepam 1 MG TABLET 2 MG PO (04:20)
[2020-08-21 04:27] VITALS: BP 142/83; PULSE 91; RESP 18; TEMP 36.2; O2SAT 98
[2020-08-21] MEDS: ARIPiprazole 10 MG TABLET PO (08:35)
--- NOTE | 2020-08-21 17:33 | HO.PSYCHPN ---
Subjective Subjective Date of Service: 08/21/20 Reason For Visit: PTSD, autism spectrum disorder, schizophrenia Subjective Notes: Meredith Warning, Conditional Voluntary and 3 Day Interim History: Brown has been intrusive and needing much redirection. He appears to be responding to internal stimuli. He has little insight into the benefits of treatment. Medication Compliance: Yes Side effects from medications: No Attending Groups: No Review of Systems Acute medical concerns: No Medical Review of Systems: unchanged Mental Status Exam Mental Status Exam Patient Appearance: Well Grooomed Patient Orientation: Person, Place, Time and Situation Level of Consciousness: Awake and Restless Patient Behavior: Guarded and Cooperative Mood Description: Calm Affect Description: Happy, Cheerful and Expansive Patient Cognition Impaired: No Ability to Follow Directions: Good Speech Pattern: Rambling and Pressured Memory Description: Intact Hallucinations: Auditory (Appears to be responding to AH) Delusions: Paranoid Ideation and Grandiose Thought Process: Incoherent, Racing and Illogical Thought Content: positive for Loose Associations, positive for Thought Blocking, positive for Disorganized, negative for Suicidal Ideation and negative for Homicidal Ideation Abnormal Motor Activity Signs and Symptoms: Restlessness Judgement: Poor Diagnostics Vital Signs (24Hr): Vital Signs - 24 hr 08/20/20 18:00 08/21/20 04:27 Temperature 98.2 F 97.2 F Pulse Rate 80 91 Respiratory Rate 16 18 Blood Pressure 143/82 H 142/83 H Pulse Oximetry 99 98 Body Mass Index 29.6 Medications Medications Current Medications Generic Name Dose Route Start Last Admin Trade Name Freq PRN Reason Stop Dose Admin Acetaminophen 650 mg 08/18/20 16:56 Acetaminophen 325 Mg Tablet PO Q6H PRN Headache/Pain Mild Scale (1-3) Al Hydroxide/Mg Hydroxide 30 ml 08/18/20 16:56 Magnesium Hydrox/Alum Hydrox 30 Ml Oral.Susp PO Q6H PRN Heartburn/Nausea Aripiprazole 10 mg 08/16/20 09:00 08/21/20 08:35 Aripiprazole 10 Mg Tablet PO 10 mg DAILY LUIS ALBERTO Administration Benztropine Mesylate 0.5 mg 08/16/20 05:31 Benztropine Mesylate 0.5 Mg Tablet PO TID PRN Extrapyramidal Effects Haloperidol 10 mg 08/17/20 04:31 08/18/20 04:30 Haloperidol 5 Mg Tablet PO 10 mg QID PRN Administration Agitation Hydroxyzine HCl 25 mg 08/18/20 16:56 Hydroxyzine Hcl 25 Mg Tablet PO BEDTIME PRN Anxiety Lamotrigine 25 mg 08/16/20 21:00 08/20/20 20:39 Lamotrigine 25 Mg Tablet PO 25 mg BEDTIME [facility]ERT[facility] Administration Lorazepam 2 mg 08/17/20 04:31 08/21/20 04:20 Lorazepam 1 Mg Tablet PO 2 mg QID PRN Administration Agitation Magnesium Hydroxide 30 ml 08/18/20 16:56 Milk Of Magnesia 30 Ml Oral.Susp PO DAILY PRN Constipation Olanzapine 5 mg 08/16/20 21:00 08/20/20 20:39 Olanzapine 5 Mg Tablet PO 5 mg BEDTIME [facility]ERT[facility] Administration Trazodone HCl 50 mg 08/18/20 16:56 Trazodone Hcl 50 Mg Tablet PO BEDTIME PRN Insomnia Vitamin D 25 mcg 08/16/20 09:00 08/21/20 08:37 Cholecalciferol (Vitamin D3) 25 Mcg Tablet PO Not Given DAILY [facility] Allergies Allergies Allergy/AdvReac Type Severity Reaction Status Date / Time divalproex sodium Allergy Intermediate UNKNOWN Verified 05/16/20 06:32 [From [facility]] Assessment & Plan Assessment & Plan (1) Schizophrenia: Qualifiers: Schizophrenia type: undifferentiated schizophrenia Qualified Code(s): F20.3 - Undifferentiated schizophrenia Status: Acute Code(s): F20.9 - Schizophrenia, unspecified Assessment and Plan: CT treatment plan with no change. Greater than 50% of the session was spent on counseling and/or coordination of care Patient educated on: diagnosis and medication risk/benefits Reason for contiued inpatient stay Substantial Risk for: inability to function and rapid decompensation
[2020-08-21 18:00] VITALS: BP 150/86; PULSE 89; TEMP 36.8
[2020-08-21] MEDS: lamoTRIgine 25 MG TABLET PO (20:44)
[2020-08-21] MEDS: OLANZapine 5 MG TABLET PO (20:44)
[2020-08-22] MEDS: LORazepam 1 MG TABLET 2 MG PO (02:34)
[2020-08-22 06:20] VITALS: BP 119/70; PULSE 53; RESP 18; TEMP 35.9; O2SAT 100
[2020-08-22] MEDS: ARIPiprazole 10 MG TABLET PO (09:27)
--- NOTE | 2020-08-22 14:47 | HO.PSYCHPN ---
Subjective Subjective Date of Service: 08/22/20 Reason For Visit: PTSD, autism spectrum disorder, schizophrenia Subjective Notes: Conditional Voluntary Interim History: The patient remains grandiose, he stated that he did a new relativity theory and he had mailed to the [employer] and he was rambling on all the procedures that he tried to apply for mailing his work . I tried to explain him the procedures of how the [employer] is awarded but he remained grandiose. SW reported that his mother contacted her and she reported that he was non-compliant with medications and she would take him back if he goes to step down so he could take his medications. Medication Compliance: Yes Side effects from medications: No Attending Groups: No Review of Systems Review of Systems Yes all other systems are reviewed and are negative Mental Status Exam Mental Status Exam Patient Appearance: Well Grooomed Patient Orientation: Person, Place, Time and Situation Level of Consciousness: Awake Patient Behavior: Appropriate Mood Description: Calm, Elated and Expansive Affect Description: Calm and Expansive Patient Cognition Impaired: No Ability to Follow Directions: Fair Speech Pattern: Rapid Memory Description: Intact Hallucinations: None Delusions: Grandiose Thought Process: Illogical Thought Content: positive for Loose Associations Judgement: Poor Diagnostics Vital Signs (24Hr): Vital Signs - 24 hr 08/21/20 18:00 08/22/20 06:20 Temperature 98.2 F 96.7 F L Pulse Rate 89 53 Respiratory Rate 18 Blood Pressure 150/86 H 119/70 Pulse Oximetry 100 Body Mass Index 29.6 Medications Medications Current Medications Generic Name Dose Route Start Last Admin Trade Name Freq PRN Reason Stop Dose Admin Acetaminophen 650 mg 08/18/20 16:56 Acetaminophen 325 Mg Tablet PO Q6H PRN Headache/Pain Mild Scale (1-3) Al Hydroxide/Mg Hydroxide 30 ml 08/18/20 16:56 Magnesium Hydrox/Alum Hydrox 30 Ml Oral.Susp PO Q6H PRN Heartburn/Nausea Aripiprazole 10 mg 08/16/20 09:00 08/22/20 09:27 Aripiprazole 10 Mg Tablet PO 10 mg DAILY [facility] AL[facility]ERTO Administration Benztropine Mesylate 0.5 mg 08/16/20 05:31 Benztropine Mesylate 0.5 Mg Tablet PO TID PRN Extrapyramidal Effects Haloperidol 10 mg 08/17/20 04:31 08/18/20 04:30 Haloperidol 5 Mg Tablet PO 10 mg QID PRN Administration Agitation Hydroxyzine HCl 25 mg 08/18/20 16:56 Hydroxyzine Hcl 25 Mg Tablet PO BEDTIME PRN Anxiety Lamotrigine 25 mg 08/16/20 21:00 08/21/20 20:44 Lamotrigine 25 Mg Tablet PO 25 mg BEDTIME [facility] AL[facility]ERTO Administration Magnesium Hydroxide 30 ml 08/18/20 16:56 Milk Of Magnesia 30 Ml Oral.Susp PO DAILY PRN Constipation Olanzapine 5 mg 08/16/20 21:00 08/21/20 20:44 Olanzapine 5 Mg Tablet PO 5 mg BEDTIME [facility] ALBERTO Administration Trazodone HCl 50 mg 08/18/20 16:56 Trazodone Hcl 50 Mg Tablet PO BEDTIME PRN Insomnia Vitamin D 25 mcg 08/16/20 09:00 08/22/20 09:29 Cholecalciferol (Vitamin D3) 25 Mcg Tablet PO Not Given DAILY [facility] Allergies Allergies Allergy/AdvReac Type Severity Reaction Status Date / Time divalproex sodium Allergy Intermediate UNKNOWN Verified 05/16/20 06:32 [[facility] Assessment & Plan Assessment & Plan (1) Schizophrenia: Qualifiers: Schizophrenia type: undifferentiated schizophrenia Qualified Code(s): F20.3 - Undifferentiated schizophrenia Status: Acute Code(s): F20.9 - Schizophrenia, unspecified Assessment and Plan: Young descendant male with a long history since adolescence of mood disorder, ADHD and psychosis with periods of institutionalization, with several admissions CT treatment plan with no change. Greater than 50% of the session was spent on counseling and/or coordination of care Reason for contiued inpatient stay Substantial Risk for: inability to function, rapid decompensation and med/psych decompensation
[2020-08-22 16:55] VITALS: BP 136/72; PULSE 72; TEMP 36.8
[2020-08-22] MEDS: OLANZapine 5 MG TABLET PO (21:58)
[2020-08-22] MEDS: lamoTRIgine 25 MG TABLET PO (21:58)
[2020-08-23] MEDS: ARIPiprazole 10 MG TABLET PO (08:31)
--- NOTE | 2020-08-23 10:36 | HO.PSYCHPN ---
Subjective Subjective Date of Service: 08/23/20 Reason For Visit: PTSD, autism spectrum disorder, schizophrenia Subjective Notes: 3 Day Interim History: The patient has been isolative at times, no evidence of agitation or unsafe behaviors in the unit. He remains grandiose and delusional regarding his theories now about crypto-currency and also about his relativity theory . I tried to redirect him to reality base but he was reluctant. Medication Compliance: Yes Side effects from medications: No Attending Groups: Intermittent Review of Systems Review of Systems Yes all other systems are reviewed and are negative Mental Status Exam Mental Status Exam Patient Appearance: Disheveled Patient Orientation: Person, Place, Time and Situation Level of Consciousness: Awake and Restless Patient Behavior: Avoidant Mood Description: Withdrawn Affect Description: Constricted Patient Cognition Impaired: Yes Ability to Follow Directions: Good Speech Pattern: Clear Memory Description: Intact Hallucinations: None Delusions: Grandiose and Bizarre Thought Process: Illogical Thought Content: positive for Flight of Ideas and positive for Loose Associations Judgement: Poor Diagnostics Vital Signs (24Hr): Vital Signs - 24 hr 08/22/20 16:55 Temperature 98.2 F Pulse Rate 72 Blood Pressure 136/72 Body Mass Index 29.6 Medications Medications Current Medications Generic Name Dose Route Start Last Admin Trade Name Freq PRN Reason Stop Dose Admin Acetaminophen 650 mg 08/18/20 16:56 Acetaminophen 325 Mg Tablet PO Q6H PRN Headache/Pain Mild Scale (1-3) Al Hydroxide/Mg Hydroxide 30 ml 08/18/20 16:56 Magnesium Hydrox/Alum Hydrox 30 Ml Oral.Susp PO Q6H PRN Heartburn/Nausea Aripiprazole 10 mg 08/16/20 09:00 08/23/20 08:31 Aripiprazole 10 Mg Tablet PO 10 mg DAILY LUIS ALBERTO Administration Benztropine Mesylate 0.5 mg 08/16/20 05:31 Benztropine Mesylate 0.5 Mg Tablet PO TID PRN Extrapyramidal Effects Haloperidol 10 mg 08/17/20 04:31 08/18/20 04:30 Haloperidol 5 Mg Tablet PO 10 mg QID PRN Administration Agitation Hydroxyzine HCl 25 mg 08/18/20 16:56 Hydroxyzine Hcl 25 Mg Tablet PO BEDTIME PRN Anxiety Lamotrigine 25 mg 08/16/20 21:00 08/22/20 21:58 Lamotrigine 25 Mg Tablet PO 25 mg BEDTIME LUIS ALBERTO Administration Magnesium Hydroxide 30 ml 08/18/20 16:56 Milk Of Magnesia 30 Ml Oral.Susp PO DAILY PRN Constipation Olanzapine 5 mg 08/16/20 21:00 08/22/20 21:58 Olanzapine 5 Mg Tablet PO 5 mg BEDTIME LUIS ALBERTO Administration Trazodone HCl 50 mg 08/18/20 16:56 Trazodone Hcl 50 Mg Tablet PO BEDTIME PRN Insomnia Vitamin D 25 mcg 08/16/20 09:00 08/23/20 08:32 Cholecalciferol (Vitamin D3) 25 Mcg Tablet PO Not Given DAILY LUIS ALBERTO Allergies Allergies Allergy/AdvReac Type Severity Reaction Status Date / Time divalproex sodium Allergy Intermediate UNKNOWN Verified 05/16/20 06:32 [From [facility]] Assessment & Plan Assessment & Plan (1) Schizophrenia: Qualifiers: Schizophrenia type: undifferentiated schizophrenia Qualified Code(s): F20.3 - Undifferentiated schizophrenia Status: Acute Code(s): F20.9 - Schizophrenia, unspecified Assessment and Plan: Young descendant male with a long history since adolescence of mood disorder, ADHD and psychosis with periods of institutionalization, with several admissions [place] treatment plan with no change. Greater than 50% of the session was spent on counseling and/or coordination of care Reason for contiued inpatient stay Substantial Risk for: inability to function and med/psych decompensation
[2020-08-23 16:40] VITALS: BP 148/83; PULSE 76; TEMP 36.9
[2020-08-23] MEDS: lamoTRIgine 25 MG TABLET PO (21:26)
[2020-08-23] MEDS: OLANZapine 5 MG TABLET PO (21:26)
[2020-08-24 06:00] VITALS: PULSE 58; RESP 18; TEMP 36.2; O2SAT 97
[2020-08-24] MEDS: ARIPiprazole 10 MG TABLET PO (08:44)
--- NOTE | 2020-08-24 10:08 | PM.PSYDC ---
DS: Providers Provider Date of Service: 08/24/20 Date of admission: 08/18/20 16:43 Date of discharge: 08/24/20 Primary care physician: [facility] Attending physician on discharge: Angelo Navas DS: Diagnosis Discharge Diagnosis (1) Schizophrenia: Status: Acute Problem details: The patient is a 25 yo male brought to the ER via ambulance with symptoms of fear, paranoia, delusions of persecution. He was readmitted since he was non-compliant with treatment after discharge a few days ago. His mother reported that he became disorganized, delusional, with the idea that he will win the [employer] Prize for a new relativity theory that I came up . He is delusional with no insight into his condition but he was compliant with treatment. He signed a 3 day notice letter and there were no safety concerns while in the unit. DS: Medications Discharge Medications Home Medications: Home Medications Medication Instructions Recorded Confirmed olanzapine 1 tab PO BEDTIME 08/15/20 08/15/20 Previous Rx's Medication Instructions Recorded aripiprazole 10 mg PO DAILY #30 tab 08/04/20 benztropine 0.5 mg PO TID PRN #90 tab 08/04/20 cholecalciferol (vitamin D3) 25 mcg PO DAILY #30 tab 08/04/20 lamotrigine 25 mg PO BEDTIME #30 tab 08/04/20 Discharge Plan Discharge Patient Disposition: Home, Self-Care Discharge Diagnosis: Schizophrenia Referrals: Mikhail Alonzo (therapist) [Other] - 08/30/20 2:00 pm (Appointment is telehealth, they will call your mother's number) Maggie Mcgrath (psychiatrist) [Other] - 09/19/20 9:20 am (Appointment is telehealth, they will call your mother's number) Maggie Mcgrath (psychiatrist) [Other] - 10/17/20 9:20 am (Appointment is telehealth, they will call your mother's number) [facility] [Primary Care Provider] - 1 Week Discharge Medications: New benztropine 0.5 mg Tablet 0.5 mg PO TID PRN (Reason: Extrapyramidal Effects) 30 Days Qty: 60 RF: 0 olanzapine 5 mg Tablet 5 mg PO BEDTIME 30 Days Qty: 30 RF: 0 lamotrigine 25 mg Tablet 25 mg PO BEDTIME 30 Days Qty: 30 RF: 0 aripiprazole 10 mg Tablet 10 mg PO DAILY 30 Days Qty: 30 RF: 0 cholecalciferol (vitamin D3) 25 mcg (1,000 unit) Tablet 25 mcg PO DAILY 30 Days Qty: 30 RF: 0 Continued benztropine 0.5 mg Tablet 0.5 mg PO TID PRN (Reason: Extrapyramidal Effects) Qty: 90 RF: 0 lamotrigine 25 mg Tablet 25 mg PO BEDTIME Qty: 30 RF: 0 cholecalciferol (vitamin D3) 25 mcg (1,000 unit) Tablet 25 mcg PO DAILY Qty: 30 RF: 0 olanzapine 5 mg tablet 1 tab PO BEDTIME RF: 0 aripiprazole 10 mg Tablet 10 mg PO DAILY 30 Days Qty: 30 RF: 0 Discharge Orders: Discharge Order (Routine); Ordered 08/24/20 Ordered By: Angelo Navas Diet: advance to usual diet Activity on Discharge: As tolerated Stand Alone Forms: Patient Portal Discharge page Care Plan Goals: Continue Care Plan goals as an outpatient Health Concerns: None. Plan of Treatment: Continue with outpatient providers. Assessment: The patient is a young adult with psychotic symptoms with a very long history of mood lability with several admissions as a teenager and institutionalization. Now, he presents with psychotic symptoms, with several delusions but no evidence of safety concerns in the unit. Mental Status Exam Mental Status Exam Patient Appearance: Appropriate Patient Orientation: Person, Place, Time and Situation Level of Consciousness: Awake Patient Behavior: Appropriate and Guarded Mood Description: Labile and Apprehensive Affect Description: Calm and Withdrawn Patient Cognition Impaired: No Ability to Follow Directions: Fair Speech Pattern: Clear Memory Description: Intact Hallucinations: None Delusions: Grandiose Thought Process: Distracted Thought Content: positive for Circumstantial Judgement: Poor Data Data Completed and Pending Completed studies during hospitalization [Text1]: 08/18/20 08/19/20 08/19/20 07:17 07:55 07:55 Estimat Average Glucose 88 Hemoglobin A1c % 4.7 Magnesium 2.3 Triglycerides 75 Cholesterol 161 LDL Cholesterol, Calc 100 HDL Cholesterol 46 Vitamin B12 Folate TSH 0.43 Free T4 0.92 Urine Opiates Screen Not Detected Ur Barbiturates Screen Not Detected Ur Phencyclidine Scrn Not Detected Ur Amphetamines Screen Not Detected U Benzodiazepines Scrn Not Detected Urine Cocaine Screen Not Detected U Marijuana (THC) Screen Not Detected 08/19/20 07:55 Estimat Average Glucose Hemoglobin A1c % Magnesium Triglycerides Cholesterol LDL Cholesterol, Calc HDL Cholesterol Vitamin B12 368 Folate 19.0 TSH Free T4 Urine Opiates Screen Ur Barbiturates Screen Ur Phencyclidine Scrn Ur Amphetamines Screen U Benzodiazepines Scrn Urine Cocaine Screen U Marijuana (THC) Screen DS: Summary Hospital Course Hospital Course: The patient was initially admitted since his mother reported non-compliant with treatment and he was disorganized and psychotic. He is chronically delusional with the idea that he will win the [employer] Prize and that he developed a new relativity theory . On intake, he was guarded and explained his delusive thinking, stating that he mailed to the [facility] and to [place] for the [employer] [facility] . He didn't attend to groups, he was compliant with his medications and he signed a 3 day notice. He didn't show any violent or unsafe behavior in the unit so we have to discharge him. His mother is her guardian and she worked with the with the possibility of getting [facility] services. Since there were no safety concerns, discharge was done. Time spent discussing smoking cessation with patient: 3 to 10 minutes Status at Discharge Cognitive/behavioral status at discharge: No changes on his mental status. Functional status at discharge: independent ambulation Overall status at discharge: patient is progressing back to baseline Time Spent with Patient Time attestation: Total time spent providing and/or coordinating discharge services: Time spent: Less than 30 minutes
== END 2020-08-24 14:25 | disposition home or self-care (01) | DRG 750 ==
LOC: HO.ED 08-18 16:30 → HO.PM5 08-18 16:52
PROVIDERS: Clinical Nurse Specialist Psychiatric/Mental Health, Adult; Emergency Medicine Emergency Medical Services; Admitting Provider Psychiatry & Neurology Psychiatry; Emergency Provider Emergency Medicine; Visit Provider Psychiatry & Neurology Psychiatry
DX: F20.3 Undifferentiated schizophrenia (principal); Z91.14 Patient's other noncompliance with medication regimen; F31.9 Bipolar disorder, unspecified; F84.5 Asperger's syndrome; Z20.822 Contact with and (suspected) exposure to COVID-19; Z79.899 Other long term (current) drug therapy
CPT/HCPCS: 36415; 80061; 80307; 82607; 82746; 83036; 83735; 84439; 84443; 87635; 96372; 96374; 99285; J2060

== ENCOUNTER 2020-09-13 05:48 | Inpatient (IN) | payer OTHER, SELFPAY ==
--- NOTE | 2020-09-13 06:05 | ED.PSYCH ---
HPI - Psych General Chief Complaint: Psychiatric Symptoms Stated Complaint: med refill Time Seen by Provider: 09/13/20 05:50 Source: family and old records reviewed Mode of arrival: ambulatory Limitations: other (poor cooperation) History of Present Illness MD complaint: anxiety and other (delusions, insomnia) Onset (ago): week(s) (since 08/24) Duration: constant History of same: Yes Relieving factors: none Exacerbating factors: other (has not been taking his medications since 08/24) Context: not taking psychiatric medications Associated psychiatric symptoms: delusions Associated symptoms: insomnia Treatments prior to arrival: none Related Data Home Medications Medication Instructions Recorded Confirmed olanzapine 1 tab PO BEDTIME 08/15/20 08/15/20 Previous Rx's Medication Instructions Recorded benztropine 0.5 mg PO TID PRN #90 tab 08/04/20 cholecalciferol (vitamin D3) 25 mcg PO DAILY #30 tab 08/04/20 lamotrigine 25 mg PO BEDTIME #30 tab 08/04/20 aripiprazole 10 mg PO DAILY 30 Days #30 tab 08/24/20 aripiprazole 10 mg PO DAILY 30 Days #30 tab 08/24/20 benztropine 0.5 mg PO TID PRN 30 Days #60 tab 08/24/20 cholecalciferol (vitamin D3) 25 mcg PO DAILY 30 Days #30 tab 08/24/20 lamotrigine 25 mg PO BEDTIME 30 Days #30 tab 08/24/20 olanzapine 5 mg PO BEDTIME 30 Days #30 tab 08/24/20 Allergies Allergy/AdvReac Type Severity Reaction Status Date / Time divalproex sodium Allergy Intermediate UNKNOWN Verified 05/16/20 06:32 [From [facility]] Review of Systems Review of Systems: ROS unable to be obtained due to poor cooperation [facility] Past Medical History Attestation statement: The following information was validated with the patient. Medical History Asperger's disorder Bipolar disorder Hx of gynecomastia Surgical History Hx of excision of mass Hx of excision of mass Hx of eye surgery Social History Social History Household Members: Family Household Members Other:: Mother Housing: House Alcohol intake: former Smoking Status: Never smoker Advance Directives: No Advance Directives Information Provided: No service: No Sexual orientation: Straight/Heterosexual Physical Exam Vital Signs: Appearance: Alert. Withdrawn. No acute distress. Anxious, intermittent agitation Eyes: Pupils equal, round and reactive to light. ENT: Pharynx normal. Neck: Normal inspection. Neck supple. CVS: Normal heart rate and rhythm. Pulses normal. Respiratory: No respiratory distress. Breath sounds normal. Abdomen: Soft and non-tender. Skin: Skin warm and dry. Normal skin color. Extremities: No lower extremity edema. Neuro: Will not answer orientation questions. No motor deficit. No sensory deficit. Psych: withdrawn, flat affect, book in hand muttering to himself, unsure if he has SI/HI will not answer questions. MDM - Psych MDM Narrative Medical decision making narrative: 25 yo male with chronic schizophrenia, PTSD just left [facility] on 08/24 did not take any medications since he left this is a chronic issue with noncompliance, at this time patient has not been sleeping, has been delusional, he is here agitated, did make a gesture at his mom in anger by swinging his arm - given his presentation and concern for significant decompensation and Brown being delusional and not on medications will place on section 12, at this time labs, PO zyprexa and BHN consult ordered, signed out pending workup Discharge Plan Discharge Clinical Impression: Chronic schizophrenia, Noncompliance with medication regimen Prescriptions: No Action benztropine 0.5 mg Tablet 0.5 mg PO TID PRN (Reason: Extrapyramidal Effects) Qty: 90 RF: 0 lamotrigine 25 mg Tablet 25 mg PO BEDTIME Qty: 30 RF: 0 cholecalciferol (vitamin D3) 25 mcg (1,000 unit) Tablet 25 mcg PO DAILY Qty: 30 RF: 0 olanzapine 5 mg tablet 1 tab PO BEDTIME RF: 0 benztropine 0.5 mg Tablet 0.5 mg PO TID PRN (Reason: Extrapyramidal Effects) 30 Days Qty: 60 RF: 0 olanzapine 5 mg Tablet 5 mg PO BEDTIME 30 Days Qty: 30 RF: 0 lamotrigine 25 mg Tablet 25 mg PO BEDTIME 30 Days Qty: 30 RF: 0 aripiprazole 10 mg Tablet 10 mg PO DAILY 30 Days Qty: 30 RF: 0 cholecalciferol (vitamin D3) 25 mcg (1,000 unit) Tablet 25 mcg PO DAILY 30 Days Qty: 30 RF: 0 aripiprazole 10 mg Tablet 10 mg PO DAILY 30 Days Qty: 30 RF: 0
[2020-09-13 06:06] VITALS: RESP 16; BMI 25.7
[2020-09-13] MEDS: OLANZapine 5 MG TABLET PO ×2 (06:14→20:42)
--- NOTE | 2020-09-13 07:05 | PC.NURSE ---
Addendum entered by Miriam Wood 09/13/20 09:32: pt did denied si but also very vague not wanting to answer any more questions about his past due Original Note: pt sitting up on the stretcher, extremely garded and paranoid, pt states that noise and light is bothering him, pt did finely let this christopher morley to draw his labs, but unable to get the covid swab done. mom states that pt was released from about two weeks, things where going ok and then the pt stopped taking his psych meds, pt does not state why he does not want to take his meds. pt did denied feeling suicidal at this time. pt is still wearing his clothes at this time, will attempt to change the pt over again in a while. mom at bedside. pt does have a section [address] that [address] by dr trujillo
[2020-09-13 07:49] LABS: MANUAL DIFF FLAG NO
[2020-09-13 07:50] LABS: Basophils Percent Auto 0.3 % (0-2); Eosinophils Absolute Auto 0.1 X10*3/uL (0.0-0.4); Eosinophils Percent Auto 0.7 % (0-4); Hematocrit 52.3 % (42-52); Hemoglobin 17.4 g/dl (14.0-18.0); Imm Gran Abs Auto 0.03 X10*3/uL (0.00-0.03); Imm Gran Pct Auto 0.3 % (0.0-0.4); Lymphocytes Absolute Auto 2.2 X10*3/uL (1.2-4.9); Lymphocytes Percent Auto 19.1 % (20-40); Mean Corpuscular HGB Conc 33.3 g/dl (31.0-36.0); Mean Corpuscular Hemoglobin 28.7 pg (27.0-33.0); Mean Corpuscular Volume 86.3 fL (80-98); Monocytes Absolute Auto 0.6 X10*3/uL (0.1-1.2); Monocytes Percent Auto 5.6 % (2-11); Neutrophils Absolute Auto 8.5 X10*3/uL (2.0-8.3); Platelet Count 297 X10*3/uL (160-400); Red Blood Count 6.06 X10*6/uL (4.60-5.80); Red Cell Distribution Width 12.9 % (11.0-16.0); White Blood Count 11.5 X10*3/uL (4.8-10.8)
--- NOTE | 2020-09-13 07:57 | PC.NURSE ---
vika from [facility] called for some update on the pt, they received the referral and will be coming to evluate the pt
[2020-09-13 08:15] LABS: Alanine Aminotransferase 24 U/L (0-40); Albumin Level 5.1 g/dL (3.5-5.0); Alkaline Phosphatase 83 U/L (39-117); Anion Gap 13 (12-20); Aspartate Amino Transferase 21 U/L (5-37); Bilirubin Direct 0.5 mg/dL (0.0-0.5); Bilirubin Total 1.6 mg/dL (0.0-1.0); Blood Urea Nitrogen 12 mg/dL (9-16); Calcium 10.1 mg/dL (8.4-10.2); Carbon Dioxide 29 mmol/L (22-29); Chloride 104 mmol/L (96-108); Creatinine Clr Calc Pharmacy 146.6; Estimated Glomerular Filt Rate > 60; Glucose Random 90 mg/dL (60-115); Potassium 4.5 mmol/L (3.3-5.1); Sodium 141 mmol/L (135-145); Total Protein 8.3 g/dL (6.5-8.0)
--- NOTE | 2020-09-13 09:15 | PC.NURSE ---
pt changed over by security after a lot of encouragement required
--- NOTE | 2020-09-13 11:06 | PC.NURSE ---
PT REFUSING COVID SWAB AT THIS TIME.
[2020-09-13 12:43] VITALS: RESP 17
[2020-09-13 13:06] LABS: COVID-19 Test Negative (Negative)
--- NOTE | 2020-09-13 13:10 | PC.NURSE ---
pt is currently asleep in no apparent distress at this time
--- NOTE | 2020-09-13 13:33 | MHC.CARE ---
Unable to wake patient after multiple attempts today. Spoke to his mother who voiced her concerns and hope that he will be hospitalized. Psychiatry consulted and will weigh in on patient's disposition when patient is alert enough to engage.
--- NOTE | 2020-09-13 14:56 | PC.NURSE ---
Pt arrived to unit on stretcher. Pt unwilling to get out of stretcher and into room despite multiple attempts by several different security and staff. Pt required assistance to bed, now resting, continues to decline to speak w/ staff.
--- NOTE | 2020-09-13 15:54 | PC.NURSE ---
Pt OOB to bathroom, care team in to see.
[2020-09-13 16:00] VITALS: RESP 20
[2020-09-13 18:00] VITALS: RESP 20
--- NOTE | 2020-09-13 18:05 | PC.NURSE ---
Pt threw bed linens out into aranda, as well as mattress. Pt then asked 'where the f...is my grilled cheese?' Unable to obtain vital signs at this time.
--- NOTE | 2020-09-13 18:35 | MHC.CARE ---
[facility] unable to provide a clinician to evaluate pt, therefore CARE team took over management of the case. Pt was evaluated with disposition for inpatient psych admission. Pt is not agreeable to admission and due to pt's level of decompensation and high risk for further decompensation, pt may be admitted on a Section 12b if he refuses to sign or deemed incompetent to do so. CARE team is awaiting return call from [facility] to obtain prior authorization for admission. Pt remains in the pod at this time.
[2020-09-13] MEDS: Benztropine Mesylate 0.5 MG TABLET PO (20:42)
[2020-09-13] MEDS: lamoTRIgine 25 MG TABLET PO (20:42)
[2020-09-13] MEDS: Cholecalciferol (Vitamin D3) 25 MCG TABLET PO (20:42)
[2020-09-13] MEDS: ARIPiprazole 10 MG TABLET PO (20:42)
--- NOTE | 2020-09-14 | ECG_ITS ---
Test Reason : PROLONG QTC Blood Pressure : / mmHG Vent. Rate : 068 BPM Atrial Rate : 068 BPM P-R Int : 140 ms QRS Dur : 090 ms QT Int : 378 ms P-R-T Axes : 074 059 026 degrees QTc Int : 401 ms Normal sinus rhythm with sinus arrhythmia Normal ECG When compared with ECG of 25-JUL-2020 13:56, No significant change was found Referred By: Gail Redmond Electronically Signed By:ADITYA VERGARA MD
--- NOTE | 2020-09-14 00:51 | PC.ADMIT ---
Brown required chair restraint in the ED and was transferred to in the chair. Patient was immediately released from the restraint chair on arrival to unit. Per report, Dr. Callahan(ED physician) present in behavioral health pod in ED when patient was placed in restraint chair. Patient is a 25 year old male that speaks Nepalese. Patient interviewed by CARE team. According to report, Brown has not been taking prescribed medication and refused to attend scheduled MD appointments. Mother reports patient has presented with grandiose thoughts, irrational thinking, paranoia, and internal preoccupation. Patient did not participate in admission process and information was taken from crisis reports and past history.
[2020-09-14] MEDS: OLANZapine ODT 10 MG TAB.RAPDIS TRANSLINGU ×2 (08:47→16:13)
[2020-09-14] MEDS: ARIPiprazole 10 MG TABLET PO (08:47)
[2020-09-14 13:46] VITALS: BP 119/55; PULSE 75
--- NOTE | 2020-09-14 13:59 | HO.PSYADMNOT ---
HPI Chief Complaint: Schizoaffective disorder Sources of Information: patient interviewed and chart reviewed HPI Subjective Notes: Meredith Warning and Section 12B Narrative: The patient is a 25 year old Black descendant male, single, with no children, currently unemployed, living with his family. His mother is her guardian. The patient is a very poor historian but apparently, he carries the diagnosis of Asperger's syndrome, PTSD and mood symptoms and he started receiving services since he was child with several admissions at different facilities and residential facilities. His last admission was a few weeks ago at this facility for an episode of mood lability, he was discharged on Zyprexa but apparently, he was non-compliant and relapsed on his symptoms. As per crisis report, he was brought by his mother. This is the 4th admission in the last 6 months for the exactly same presentation. During the interview, the patient was uncooperative, he refused to be interviewed but he took his medications AM. He also refused bloodwork at AM Past Psychiatric History: In Pt: 4 admissions in the last 6 months for non-compliance, [facility], 2002 and several in 2010 Trials: Seroquel, Risperdal, Haldol-breast enlargement, Depakote-increase in [place], [place], Wellbutrin, Tegretol, Klonopin, Olanzapine, Benztropine, Lamictal We are informed that pt can escalate and become dangerous and aggressive very quickly-it is referenced that he has thrown a refrigerator Medical Evaluation Reviewed: Yes [facility] Medical History Asperger's disorder Bipolar disorder Hx of gynecomastia Surgical History Hx of excision of mass Hx of excision of mass Hx of eye surgery Family History: Bipolar disorder, aggression Social History: Working until the pandemic began, attending [employer]. Living with family Trauma History: Yes, in childhood. Experienced medication SE requiring surgery for gynecomastia-thus part of med resistance. Diagnostics Vital Signs (24Hr): Vital Signs - 24 hr 09/13/20 16:00 09/13/20 18:00 09/14/20 13:46 Pulse Rate 75 Respiratory Rate 20 20 Blood Pressure 119/55 L Body Mass Index 25.7 Labs Results: 09/13/20 07:43 09/13/20 07:43 Labs: Laboratory Results - last 48 hr 09/13/20 09/13/20 09/13/20 07:43 07:43 12:45 WBC 11.5 H RBC 6.06 H Hgb 17.4 Hct 52.3 H MCV 86.3 MCH 28.7 MCHC 33.3 RDW 12.9 Plt Count 297 MPV 10.0 Immature Gran % (Auto) 0.3 Neut % (Auto) 74.0 H Lymph % (Auto) 19.1 L Hamilton % (Auto) 5.6 Eos % (Auto) 0.7 Baso % (Auto) 0.3 Lymph # (Auto) 2.2 Hamilton # (Auto) 0.6 Eos # (Auto) 0.1 Baso # (Auto) 0.0 Abs Immat Gran (auto) 0.03 Absolute Neuts (auto) 8.5 H Absolute Nucleated RBC 0.000 Nucleated RBC % (auto) 0.0 Sodium 141 Potassium 4.5 Chloride 104 Carbon Dioxide 29 Anion Gap 13 BUN 12 Creatinine 0.88 Estim Creat Clear Calc 146.6 Estimated GFR > 60 Random Glucose 90 Calcium 10.1 Total Bilirubin 1.6 H Direct Bilirubin 0.5 AST 21 ALT 24 Alkaline Phosphatase 83 Total Protein 8.3 H Albumin 5.1 H COVID-19 ([facility]) Negative COVID-19 Clin Com See Note Meds/Allergies Meds Home Medications Acetaminophen (Acetaminophen 325 Mg Tablet) 650 mg PO Q6H PRN PRN Reason: Headache/Pain Mild Scale (1-3) Al Hydroxide/Mg Hydroxide (Magnesium Hydrox/Alum Hydrox 30 Ml Oral.Susp) 30 ml PO Q6H PRN PRN Reason: Heartburn/Nausea Aripiprazole (Aripiprazole 10 Mg Tablet) 10 mg PO DAILY [facility] Last Admin: 09/14/20 08:47 Dose: 10 mg Documented by: Benztropine Mesylate (Benztropine Mesylate 0.5 Mg Tablet) 0.5 mg PO TID PRN PRN Reason: Extrapyramidal Effects Last Admin: 09/13/20 20:42 Dose: 0.5 mg Documented by: Hydroxyzine HCl (Hydroxyzine Hcl 25 Mg Tablet) 25 mg PO BEDTIME PRN PRN Reason: Anxiety Lamotrigine (Lamotrigine 25 Mg Tablet) 25 mg PO BEDTIME [facility] Last Admin: 09/13/20 20:42 Dose: 25 mg Documented by: Lorazepam (Lorazepam 1 Mg Tablet) 1 mg PO Q4H PRN PRN Reason: anxiety, restless Magnesium Hydroxide (Milk Of Magnesia 30 Ml Oral.Susp) 30 ml PO DAILY PRN PRN Reason: Constipation Olanzapine (Olanzapine 5 Mg Tablet) 5 mg PO BEDTIME LUIS ALBERTO Last Admin: 09/13/20 20:42 Dose: 5 mg Documented by: Olanzapine (Olanzapine Odt 10 Mg Tab.Rapdis) 10 mg TRANSLINGU BID PRN PRN Reason: Psychosis Last Admin: 09/14/20 08:47 Dose: 10 mg Documented by: Pharmacy Consult (Consult Rx Perform Med Rec) 1 each MISCELLANE ONCE PRN PRN Reason: Consult order Trazodone HCl (Trazodone Hcl 50 Mg Tablet) 50 mg PO BEDTIME PRN PRN Reason: Insomnia Vitamin D (Cholecalciferol (Vitamin D3) 25 Mcg Tablet) 25 mcg PO DAILY [facility] Last Admin: 09/14/20 08:47 Dose: Not Given Documented by: Allergies Allergies Allergy/AdvReac Type Severity Reaction Status Date / Time divalproex sodium Allergy Intermediate UNKNOWN Verified 05/16/20 06:32 [From [facility]] Mental Status Exam Mental Status Exam Patient Appearance: Disheveled and Unkempt Patient Orientation: Person and Place Level of Consciousness: Sedated Patient Behavior: Avoidant Mood Description: Flat Affect Description: Labile Patient Cognition Impaired: No Ability to Follow Directions: Fair Speech Pattern: Impoverished Memory Description: Intact Hallucinations: None Delusions: Paranoid Ideation and Grandiose Thought Process: Evasive Thought Content: positive for Poverty of Content Judgement: Poor Assessment & Plan Assessment & Plan (1) Noncompliance with medication regimen: Status: Acute Code(s): Z91.14 - Patient's other noncompliance with medication regimen (2) Schizophrenia: Status: Acute Qualifiers: Schizophrenia type: undifferentiated schizophrenia Qualified Code(s): F20.3 - Undifferentiated schizophrenia Code(s): F20.9 - Schizophrenia, unspecified Assessment and Plan: The patient is a young black with a long history of psychosis, admitted several times for non-compliance. Plan: Re-start medications (3) Asperger's disorder: Status: Acute Code(s): F84.5 - Asperger's syndrome Reason for continued inpatient stay Substantial Risk for: harm to self, harm to others, inability to function, rapid decompensation and med/psych decompensation
[2020-09-14 19:45] VITALS: BP 134/64; PULSE 86; TEMP 36.3
[2020-09-14] MEDS: OLANZapine 5 MG TABLET PO (20:50)
[2020-09-14] MEDS: lamoTRIgine 25 MG TABLET PO (20:50)
[2020-09-15 07:00] VITALS: BMI 34.3
[2020-09-15] MEDS: ARIPiprazole 10 MG TABLET PO (08:33)
[2020-09-15 09:00] VITALS: BP 130/74; PULSE 89; RESP 16; TEMP 36.3; O2SAT 98
--- NOTE | 2020-09-15 10:52 | HO.PSYCHPN ---
Subjective Subjective Date of Service: 09/15/20 Reason For Visit: Schizoaffective disorder Subjective Notes: Meredith Warning and Conditional Voluntary (Has just sign CV today) Guardianship: Yes (Her mother is his guardian) Medical Problems Affecting Mental Status: No Interim History: The patient reported that he was brought to the hospital since he got triggered by a relative, his thought process was blocked at times, he was tangential but cooperative and he understood Meredith warning. I offered Migdaliaashutosh Karlavenu and he will think about it. Medication Compliance: Yes Side effects from medications: No Attending Groups: No Review of Systems Acute medical concerns: No Medical Review of Systems: unchanged Mental Status Exam Mental Status Exam Patient Appearance: Disheveled Patient Orientation: Person, Place, Time and Situation Level of Consciousness: Awake Patient Behavior: Appropriate and Cooperative Mood Description: Depressed Affect Description: Calm Patient Cognition Impaired: No Ability to Follow Directions: Good Speech Pattern: Clear Memory Description: Intact Thought Process: Distracted Thought Content: positive for Thought Blocking Judgement: Fair Diagnostics Vital Signs (24Hr): Vital Signs - 24 hr 09/14/20 13:46 09/14/20 19:45 Temperature 97.3 F Pulse Rate 75 86 Blood Pressure 119/55 L 134/64 Body Mass Index 25.7 Labs Results: 09/13/20 07:43 09/13/20 07:43 Labs: Laboratory Results - last 48 hr 09/13/20 12:45 COVID-19 ([facility]) Negative COVID-19 Clin Com See Note Medications Medications Current Medications Generic Name Dose Route Start Last Admin Trade Name Freq PRN Reason Stop Dose Admin Acetaminophen 650 mg 09/13/20 21:57 Acetaminophen 325 Mg Tablet PO Q6H PRN Headache/Pain Mild Scale (1-3) Al Hydroxide/Mg Hydroxide 30 ml 09/13/20 21:57 Magnesium Hydrox/Alum Hydrox 30 Ml Oral.Susp PO Q6H PRN Heartburn/Nausea Aripiprazole 10 mg 09/13/20 20:10 09/15/20 08:33 Aripiprazole 10 Mg Tablet PO 10 mg DAILY LUIS ALBERTO Administration Benztropine Mesylate 0.5 mg 09/13/20 20:09 09/13/20 20:42 Benztropine Mesylate 0.5 Mg Tablet PO 0.5 mg TID PRN Administration Extrapyramidal Effects Hydroxyzine HCl 25 mg 05/18/21 21:57 Hydroxyzine Hcl 25 Mg Tablet PO BEDTIME PRN Anxiety Lamotrigine 25 mg 09/13/20 21:00 09/14/20 20:50 Lamotrigine 25 Mg Tablet PO 25 mg BEDTIME LUIS ALBERTO Administration Lorazepam 1 mg 09/13/20 22:51 Lorazepam 1 Mg Tablet PO Q4H PRN anxiety, restless Magnesium Hydroxide 30 ml 09/13/20 21:57 Milk Of Magnesia 30 Ml Oral.Susp PO DAILY PRN Constipation Olanzapine 5 mg 09/13/20 21:00 09/14/20 20:50 Olanzapine 5 Mg Tablet PO 5 mg BEDTIME LUIS ALBERTO Administration Olanzapine 10 mg 09/13/20 22:52 09/14/20 16:13 Olanzapine Odt 10 Mg Tab.Rapdis TRANSLINGU 10 mg BID PRN Administration Psychosis Pharmacy Consult 1 each 09/13/20 15:58 Consult Rx Perform Med Rec MISCELLANE ONCE PRN Consult order Trazodone HCl 50 mg 09/13/20 21:57 Trazodone Hcl 50 Mg Tablet PO BEDTIME PRN Insomnia Vitamin D 25 mcg 09/13/20 20:15 09/15/20 08:36 Cholecalciferol (Vitamin D3) 25 Mcg Tablet PO Not Given DAILY LUIS ALBERTO Allergies Allergies Allergy/AdvReac Type Severity Reaction Status Date / Time divalproex sodium Allergy Intermediate UNKNOWN Verified 05/16/20 06:32 [[facility] Assessment & Plan Assessment & Plan (1) Noncompliance with medication regimen: Status: Acute Code(s): Z91.14 - Patient's other noncompliance with medication regimen (2) Schizophrenia: Qualifiers: Schizophrenia type: undifferentiated schizophrenia Qualified Code(s): F20.3 - Undifferentiated schizophrenia Status: Acute Code(s): F20.9 - Schizophrenia, unspecified Assessment and Plan: The patient is a young black with a long history of psychosis, admitted several times for non-compliance. Plan: Re-start medications. Get more collateral information. [facility] application? (3) Asperger's disorder: Status: Acute Code(s): F84.5 - Asperger's syndrome Greater than 50% of the session was spent on counseling and/or coordination of care Reason for contiued inpatient stay Substantial Risk for: inability to function, rapid decompensation and med/psych decompensation
--- NOTE | 2020-09-15 11:04 | PC.NURSE ---
Pt signed MD LASHAY, social work, [facility].
[2020-09-15 18:00] VITALS: BP 139/84; PULSE 101; TEMP 36.6
[2020-09-15] MEDS: OLANZapine 5 MG TABLET PO (21:00)
[2020-09-15] MEDS: lamoTRIgine 25 MG TABLET PO (21:00)
[2020-09-16] MEDS: ARIPiprazole 10 MG TABLET PO (08:40)
--- NOTE | 2020-09-16 10:40 | P.PNPSI_ITS ---
Subjective Subjective Date of Service: 09/16/20 Reason For Visit: Schizoaffective disorder Subjective Notes: Meredith Warning and Conditional Voluntary Healthcare Proxy: No Guardianship: Yes (mother) Medical Problems Affecting Mental Status: No Interim History: The patientt wanted to be discharged as soon as possible, we discussed that he should not have 4 admissions in 6 months and he agreed to try Abilify Maintenna Medication Compliance: Yes Side effects from medications: No Attending Groups: No Mental Status Exam Mental Status Exam Patient Appearance: Unkempt Patient Orientation: Person, Place, Time and Situation Level of Consciousness: Awake Patient Behavior: Appropriate Mood Description: Withdrawn Affect Description: Constricted Patient Cognition Impaired: No Ability to Follow Directions: Good Speech Pattern: Clear Memory Description: Intact Hallucinations: None Delusions: Not Present Thought Process: Goal Oriented Thought Content: positive for Intact and positive for Thought Blocking Judgement: Poor Diagnostics Vital Signs (24Hr): Vital Signs - 24 hr 09/15/20 18:00 Temperature 98 F Pulse Rate 101 H Blood Pressure 139/84 Body Mass Index 34.3 Labs Results: 09/13/20 07:43 09/13/20 07:43 Medications Medications Current Medications Generic Name Dose Route Start Last Admin Trade Name Freq PRN Reason Stop Dose Admin Acetaminophen 650 mg 09/13/20 21:57 Acetaminophen 325 Mg Tablet PO Q6H PRN Headache/Pain Mild Scale (1-3) Al Hydroxide/Mg Hydroxide 30 ml 09/13/20 21:57 Magnesium Hydrox/Alum Hydrox 30 Ml Oral.Susp PO Q6H PRN Heartburn/Nausea Aripiprazole 10 mg 09/13/20 20:10 09/16/20 08:40 Aripiprazole 10 Mg Tablet PO 10 mg DAILY LUIS ALBERTO Administration Aripiprazole 400 mg 09/16/20 10:34 Aripiprazole 400 Mg Suser.Vial IM 09/16/20 10:35 ONCE ONE Benztropine Mesylate 0.5 mg 09/13/20 20:09 09/13/20 20:42 Benztropine Mesylate 0.5 Mg Tablet PO 0.5 mg TID PRN Administration Extrapyramidal Effects Hydroxyzine HCl 25 mg 09/13/20 21:57 Hydroxyzine Hcl 25 Mg Tablet PO BEDTIME PRN Anxiety Lamotrigine 25 mg 09/13/20 21:00 09/15/20 21:00 Lamotrigine 25 Mg Tablet PO 25 mg BEDTIME LUIS ALBERTO Administration Lorazepam 1 mg 09/13/20 22:51 Lorazepam 1 Mg Tablet PO Q4H PRN anxiety, restless Magnesium Hydroxide 30 ml 09/13/20 21:57 Milk Of Magnesia 30 Ml Oral.Susp PO DAILY PRN Constipation Olanzapine 5 mg 09/13/20 21:00 09/15/20 21:00 Olanzapine 5 Mg Tablet PO 5 mg BEDTIME LUIS ALBERTO Administration Olanzapine 10 mg 09/13/20 22:52 09/14/20 16:13 Olanzapine Odt 10 Mg Tab.Rapdis TRANSLINGU 10 mg BID PRN Administration Psychosis Pharmacy Consult 1 each 09/13/20 15:58 Consult Rx Perform Med Rec MISCELLANE ONCE PRN Consult order Trazodone HCl 50 mg 09/13/20 21:57 Trazodone Hcl 50 Mg Tablet PO BEDTIME PRN Insomnia Vitamin D 25 mcg 09/13/20 20:15 09/16/20 08:42 Cholecalciferol (Vitamin D3) 25 Mcg Tablet PO Not Given DAILY LUIS ALBERTO Allergies Allergies Allergy/AdvReac Type Severity Reaction Status Date / Time divalproex sodium Allergy Intermediate UNKNOWN Verified 05/16/20 06:32 [From [facility]] Assessment & Plan Assessment & Plan (1) Noncompliance with medication regimen: Status: Acute Code(s): Z91.14 - Patient's other noncompliance with medication regimen (2) Schizophrenia: Qualifiers: Schizophrenia type: undifferentiated schizophrenia Qualified Code(s): F20.3 - Undifferentiated schizophrenia Status: Acute Code(s): F20.9 - Schizophrenia, unspecified Assessment and Plan: The patient is a young black with a long history of psychosis, admitted several times for non-compliance. Plan: Re-start medications. Get more collateral information. [facility] application? Get Abilify long acting (3) Asperger's disorder: Status: Acute Code(s): F84.5 - Asperger's syndrome Greater than 50% of the session was spent on counseling and/or coordination of care Reason for contiued inpatient stay Substantial Risk for: inability to function, rapid decompensation and med/psych decompensation
[2020-09-16 18:00] VITALS: BP 143/81; PULSE 58; TEMP 36.2
[2020-09-16] MEDS: OLANZapine 5 MG TABLET PO (21:01)
[2020-09-16] MEDS: lamoTRIgine 25 MG TABLET PO (21:01)
--- NOTE | 2020-09-17 07:46 | HO.PSYCHPN ---
Subjective Subjective Date of Service: 09/17/20 Reason For Visit: Schizoaffective disorder Interim History: The patient focused on discharge as soon as possible, He received Humberto Acostana 09/16. No side effects; tolerating without incident; pt irritable and refused to talk. made passive SI statements and then when reflected he states I didn't say that. Review of Systems Review of Systems ROS unable to be obtained due to poor cooperation Yes all other systems are reviewed and are negative Mental Status Exam Mental Status Exam Patient Appearance: Unkempt Patient Orientation: Person, Place, Time and Situation Level of Consciousness: Awake Patient Behavior: Appropriate, Guarded, Resistive to Care, Avoidant and Uncooperative Mood Description: Withdrawn and Angry (Irritable ) Affect Description: Constricted Patient Cognition Impaired: No Ability to Follow Directions: Good Speech Pattern: Clear Memory Description: Intact Thought Content: positive for Preoccupation (with discharge) Judgement: Fair Diagnostics Vital Signs (24Hr): Vital Signs - 24 hr 09/16/20 18:00 Temperature 97.1 F Pulse Rate 58 Blood Pressure 143/81 H Body Mass Index 34.3 Labs Results: 09/13/20 07:43 09/13/20 07:43 Medications Medications Current Medications Generic Name Dose Route Start Last Admin Trade Name Freq PRN Reason Stop Dose Admin Acetaminophen 650 mg 09/13/20 21:57 Acetaminophen 325 Mg Tablet PO Q6H PRN Headache/Pain Mild Scale (1-3) Al Hydroxide/Mg Hydroxide 30 ml 09/13/20 21:57 Magnesium Hydrox/Alum Hydrox 30 Ml Oral.Susp PO Q6H PRN Heartburn/Nausea Aripiprazole 10 mg 09/13/20 20:10 09/16/20 08:40 Aripiprazole 10 Mg Tablet PO 10 mg DAILY LUIS ALBERTO Administration Benztropine Mesylate 0.5 mg 09/13/20 20:09 09/13/20 20:42 Benztropine Mesylate 0.5 Mg Tablet PO 0.5 mg TID PRN Administration Extrapyramidal Effects Hydroxyzine HCl 25 mg 09/13/20 21:57 Hydroxyzine Hcl 25 Mg Tablet PO BEDTIME PRN Anxiety Lamotrigine 25 mg 09/13/20 21:00 09/16/20 21:01 Lamotrigine 25 Mg Tablet PO 25 mg BEDTIME LUIS ALBERTO Administration Lorazepam 1 mg 09/13/20 22:51 Lorazepam 1 Mg Tablet PO Q4H PRN anxiety, restless Magnesium Hydroxide 30 ml 09/13/20 21:57 Milk Of Magnesia 30 Ml Oral.Susp PO DAILY PRN Constipation Olanzapine 5 mg 09/13/20 21:00 09/16/20 21:01 Olanzapine 5 Mg Tablet PO 5 mg BEDTIME LUIS ALBERTO Administration Olanzapine 10 mg 09/13/20 22:52 09/14/20 16:13 Olanzapine Odt 10 Mg Tab.Rapdis TRANSLINGU 10 mg BID PRN Administration Psychosis Pharmacy Consult 1 each 09/13/20 15:58 Consult Rx Perform Med Rec MISCELLANE ONCE PRN Consult order Trazodone HCl 50 mg 09/13/20 21:57 Trazodone Hcl 50 Mg Tablet PO BEDTIME PRN Insomnia Vitamin D 25 mcg 09/13/20 20:15 09/16/20 08:42 Cholecalciferol (Vitamin D3) 25 Mcg Tablet PO Not Given DAILY LUIS ALBERTO Allergies Allergies Allergy/AdvReac Type Severity Reaction Status Date / Time divalproex sodium Allergy Intermediate UNKNOWN Verified 05/16/20 06:32 [From [facility]] Assessment & Plan Assessment & Plan (1) Noncompliance with medication regimen: Status: Acute Code(s): Z91.14 - Patient's other noncompliance with medication regimen (2) Schizophrenia: Qualifiers: Schizophrenia type: undifferentiated schizophrenia Qualified Code(s): F20.3 - Undifferentiated schizophrenia Status: Acute Code(s): F20.9 - Schizophrenia, unspecified Assessment and Plan: The patient is a young black with a long history of psychosis, admitted several times for non-compliance. Plan: Re-start medications. Get more collateral information. [facility] application? Get Abilify long acting (3) Asperger's disorder: Status: Acute Code(s): F84.5 - Asperger's syndrome Greater than 50% of the session was spent on counseling and/or coordination of care Reason for contiued inpatient stay Substantial Risk for: harm to self, inability to function and med/psych decompensation
[2020-09-17] MEDS: ARIPiprazole 10 MG TABLET PO (08:52)
[2020-09-17 18:00] VITALS: BP 139/77; PULSE 70; TEMP 36.9
[2020-09-17] MEDS: OLANZapine 5 MG TABLET PO (20:35)
[2020-09-17] MEDS: lamoTRIgine 25 MG TABLET PO (20:35)
[2020-09-18 06:00] VITALS: BP 129/72; PULSE 97; RESP 16; TEMP 35.8; O2SAT 98
[2020-09-18] MEDS: ARIPiprazole 10 MG TABLET PO (08:52)
--- NOTE | 2020-09-18 17:10 | HO.PSYCHPN ---
Subjective Subjective Date of Service: 09/18/20 Reason For Visit: Schizoaffective disorder Interim History: The patient focused on discharge as soon as possible. More engaged and asked to speak to this junior technical writer; pt has long list of complaints- states he has been mishandled and never should have been hospitalized 3 times since January. Reports its his family's fault for triggering his PTSD. Says he had a heart to heart with his mother yesterday( which included a long list of profanity) and cleared the air. Pt irritable and anxious; Able to be redirected with effort. Pt appeared to escalate easily and needed both validation and distraction in order to de-escalate. Appeared to be responding to internal stimuli. Review of Systems Review of Systems ROS unable to be obtained due to poor cooperation Yes all other systems are reviewed and are negative Mental Status Exam Mental Status Exam Patient Appearance: Unkempt Patient Orientation: Person, Place, Time and Situation Level of Consciousness: Awake Patient Behavior: Appropriate, Guarded, Aggressive (irritable), Anxious and Avoidant Mood Description: Withdrawn, Anxious, Labile and Angry (Irritable ) Affect Description: Constricted, Anxious, Labile, Angry (irritable) and Apprehensive Patient Cognition Impaired: Yes Ability to Follow Directions: Good Speech Pattern: Clear and Includes Profanity Memory Description: Intact Delusions: Paranoid Ideation Judgement: Poor Diagnostics Vital Signs (24Hr): Vital Signs - 24 hr 09/17/20 18:00 09/18/20 06:00 Temperature 98.5 F 96.4 F L Pulse Rate 70 97 Respiratory Rate 16 Blood Pressure 139/77 129/72 Pulse Oximetry 98 Body Mass Index 34.3 Labs Results: 09/13/20 07:43 09/13/20 07:43 Medications Medications Current Medications Generic Name Dose Route Start Last Admin Trade Name Freq PRN Reason Stop Dose Admin Acetaminophen 650 mg 09/13/20 21:57 Acetaminophen 325 Mg Tablet PO Q6H PRN Headache/Pain Mild Scale (1-3) Al Hydroxide/Mg Hydroxide 30 ml 09/13/20 21:57 Magnesium Hydrox/Alum Hydrox 30 Ml Oral.Susp PO Q6H PRN Heartburn/Nausea Aripiprazole 10 mg 09/13/20 20:10 09/18/20 08:52 Aripiprazole 10 Mg Tablet PO 10 mg DAILY LUIS ALBERTO Administration Benztropine Mesylate 0.5 mg 09/13/20 20:09 09/13/20 20:42 Benztropine Mesylate 0.5 Mg Tablet PO 0.5 mg TID PRN Administration Extrapyramidal Effects Hydroxyzine HCl 25 mg 09/13/20 21:57 Hydroxyzine Hcl 25 Mg Tablet PO BEDTIME PRN Anxiety Lamotrigine 25 mg 09/13/20 21:00 09/17/20 20:35 Lamotrigine 25 Mg Tablet PO 25 mg BEDTIME LUIS ALBERTO Administration Lorazepam 1 mg 09/13/20 22:51 Lorazepam 1 Mg Tablet PO Q4H PRN anxiety, restless Magnesium Hydroxide 30 ml 09/13/20 21:57 Milk Of Magnesia 30 Ml Oral.Susp PO DAILY PRN Constipation Olanzapine 5 mg 09/13/20 21:00 09/17/20 20:35 Olanzapine 5 Mg Tablet PO 5 mg BEDTIME LUIS ALBERTO Administration Olanzapine 10 mg 09/13/20 22:52 09/14/20 16:13 Olanzapine Odt 10 Mg Tab.Rapdis TRANSLINGU 10 mg BID PRN Administration Psychosis Pharmacy Consult 1 each 09/13/20 15:58 Consult Rx Perform Med Rec MISCELLANE ONCE PRN Consult order Trazodone HCl 50 mg 09/13/20 21:57 Trazodone Hcl 50 Mg Tablet PO BEDTIME PRN Insomnia Vitamin D 25 mcg 09/13/20 20:15 09/18/20 07:53 Cholecalciferol (Vitamin D3) 25 Mcg Tablet PO Not Given DAILY LUIS ALBERTO Allergies Allergies Allergy/AdvReac Type Severity Reaction Status Date / Time divalproex sodium Allergy Intermediate UNKNOWN Verified 05/16/20 06:32 [From [facility]] Assessment & Plan Assessment & Plan (1) Noncompliance with medication regimen: Status: Acute Code(s): Z91.14 - Patient's other noncompliance with medication regimen (2) Schizophrenia: Qualifiers: Schizophrenia type: undifferentiated schizophrenia Qualified Code(s): F20.3 - Undifferentiated schizophrenia Status: Acute Code(s): F20.9 - Schizophrenia, unspecified (3) Asperger's disorder: Status: Acute Code(s): F84.5 - Asperger's syndrome Assessment and Plan: The patient is a young black male with a long history of psychosis, admitted several times for non-compliance. Plan: Re-start medications. Get more collateral information. [facility] application? Get Abilify long acting Greater than 50% of the session was spent on counseling and/or coordination of care Reason for contiued inpatient stay Substantial Risk for: harm to self, harm to others, inability to function and med/psych decompensation
[2020-09-18 18:00] VITALS: BP 159/88; PULSE 83; TEMP 36.8
[2020-09-18] MEDS: OLANZapine 5 MG TABLET PO (21:00)
[2020-09-18] MEDS: lamoTRIgine 25 MG TABLET PO (21:00)
[2020-09-19 06:15] VITALS: BP 121/72; PULSE 80; RESP 16; TEMP 36.3; O2SAT 100
[2020-09-19] MEDS: ARIPiprazole 10 MG TABLET PO (09:03)
--- NOTE | 2020-09-19 10:44 | HO.PSYCHPN ---
Subjective Subjective Date of Service: 09/19/20 Reason For Visit: Schizoaffective disorder Subjective Notes: 3 Day Guardianship: Yes (mother, no Hernandez) Interim History: The patient was angry and agitated since he wanted to be discharged today. He stated that he didn't refuse the shot but as per nursing staff, he refused the Abilify shot since he expected to be discharged that same day. He left the room angry when I explained again how Humberto Benoit works and he needs to be on PO for at least 2 weeks. Medication Compliance: Yes Side effects from medications: No Attending Groups: No Mental Status Exam Mental Status Exam Patient Appearance: Disheveled Patient Orientation: Person, Place, Time and Situation Level of Consciousness: Awake and Sedated Patient Behavior: Appropriate Mood Description: Hostile and Angry Affect Description: Angry and Apprehensive Patient Cognition Impaired: No Ability to Follow Directions: Fair Speech Pattern: Includes Profanity Memory Description: Intact Hallucinations: None Delusions: Paranoid Ideation Thought Process: Distracted Thought Content: positive for Tangential Judgement: Poor Diagnostics Vital Signs (24Hr): Vital Signs - 24 hr 09/18/20 18:00 09/19/20 06:15 Temperature 98.2 F 97.4 F Pulse Rate 83 80 Respiratory Rate 16 Blood Pressure 159/88 H 121/72 Pulse Oximetry 100 Body Mass Index 34.3 Labs Results: 09/13/20 07:43 09/13/20 07:43 Medications Medications Current Medications Generic Name Dose Route Start Last Admin Trade Name Freq PRN Reason Stop Dose Admin Acetaminophen 650 mg 09/13/20 21:57 Acetaminophen 325 Mg Tablet PO Q6H PRN Headache/Pain Mild Scale (1-3) Al Hydroxide/Mg Hydroxide 30 ml 09/13/20 21:57 Magnesium Hydrox/Alum Hydrox 30 Ml Oral.Susp PO Q6H PRN Heartburn/Nausea Aripiprazole 10 mg 09/13/20 20:10 09/19/20 09:03 Aripiprazole 10 Mg Tablet PO 10 mg DAILY LUIS ALBERTO Administration Benztropine Mesylate 0.5 mg 09/13/20 20:09 09/13/20 20:42 Benztropine Mesylate 0.5 Mg Tablet PO 0.5 mg TID PRN Administration Extrapyramidal Effects Hydroxyzine HCl 25 mg 09/13/20 21:57 Hydroxyzine Hcl 25 Mg Tablet PO BEDTIME PRN Anxiety Lamotrigine 25 mg 09/13/20 21:00 09/18/20 21:00 Lamotrigine 25 Mg Tablet PO 25 mg BEDTIME LUIS ALBERTO Administration Magnesium Hydroxide 30 ml 09/13/20 21:57 Milk Of Magnesia 30 Ml Oral.Susp PO DAILY PRN Constipation Olanzapine 5 mg 09/13/20 21:00 09/18/20 21:00 Olanzapine 5 Mg Tablet PO 5 mg BEDTIME LUIS ALBERTO Administration Olanzapine 10 mg 09/13/20 22:52 09/14/20 16:13 Olanzapine Odt 10 Mg Tab.Rapdis TRANSLINGU 10 mg BID PRN Administration Psychosis Pharmacy Consult 1 each 09/13/20 15:58 Consult Rx Perform Med Rec MISCELLANE ONCE PRN Consult order Trazodone HCl 50 mg 09/13/20 21:57 Trazodone Hcl 50 Mg Tablet PO BEDTIME PRN Insomnia Vitamin D 25 mcg 09/13/20 20:15 09/19/20 08:20 Cholecalciferol (Vitamin D3) 25 Mcg Tablet PO Not Given DAILY LUIS ALBERTO Allergies Allergies Allergy/AdvReac Type Severity Reaction Status Date / Time divalproex sodium Allergy Intermediate UNKNOWN Verified 05/16/20 06:32 [From [facility]] Assessment & Plan Assessment & Plan (1) Noncompliance with medication regimen: Status: Acute Code(s): Z91.14 - Patient's other noncompliance with medication regimen (2) Schizophrenia: Qualifiers: Schizophrenia type: undifferentiated schizophrenia Qualified Code(s): F20.3 - Undifferentiated schizophrenia Status: Acute Code(s): F20.9 - Schizophrenia, unspecified (3) Asperger's disorder: Status: Acute Code(s): F84.5 - Asperger's syndrome Assessment and Plan: The patient is a young black male with a long history of psychosis, admitted several times for non-compliance. Plan: Re-start medications. Affidavit for extension of David and medical certificate was done Greater than 50% of the session was spent on counseling and/or coordination of care Reason for contiued inpatient stay Substantial Risk for: harm to self, harm to others, inability to function, rapid decompensation and med/psych decompensation
[2020-09-19] MEDS: OLANZapine 5 MG TABLET PO (21:33)
[2020-09-19] MEDS: lamoTRIgine 25 MG TABLET PO (21:33)
[2020-09-19 21:40] VITALS: BP 144/87; PULSE 75; TEMP 35.6
[2020-09-20 06:00] VITALS: BP 120/56; PULSE 51; RESP 18; TEMP 36.6; O2SAT 96
[2020-09-20] MEDS: ARIPiprazole 10 MG TABLET PO (08:36)
[2020-09-20 08:41] VITALS: PULSE 96
--- NOTE | 2020-09-20 10:37 | HO.PSYCHPN ---
Subjective Subjective Date of Service: 09/20/20 Reason For Visit: Schizoaffective disorder Subjective Notes: 3 Day Guardianship: Yes Medical Problems Affecting Mental Status: No Interim History: The patient remains angry since he wants to be discharged as soon as possible. No insight into his condition but no agitation or behavioral disturbances. He still believes that he has an economical theory that will win the [employer] prize and he has already sent to the [facility] as per his report. His mother received yesterday the affidavits for Hernandez and guardianship. Medication Compliance: Yes Side effects from medications: No Attending Groups: No Mental Status Exam Mental Status Exam Patient Appearance: Disheveled Patient Orientation: Person, Place, Time and Situation Level of Consciousness: Awake Patient Behavior: Guarded Mood Description: Apathetic Affect Description: Withdrawn Patient Cognition Impaired: No Ability to Follow Directions: Fair Speech Pattern: Clear Memory Description: Intact Hallucinations: None Thought Process: Distracted Thought Content: positive for [place] Judgement: Poor Diagnostics Vital Signs (24Hr): Vital Signs - 24 hr 09/19/20 21:40 09/20/20 06:00 09/20/20 08:41 Temperature 96.1 F L 97.8 F Pulse Rate 75 51 96 Respiratory Rate 18 Blood Pressure 144/87 H 120/56 L Pulse Oximetry 96 Body Mass Index 34.3 Labs Results: 09/13/20 07:43 09/13/20 07:43 Medications Medications Current Medications Generic Name Dose Route Start Last Admin Trade Name Freq PRN Reason Stop Dose Admin Acetaminophen 650 mg 09/13/20 21:57 Acetaminophen 325 Mg Tablet PO Q6H PRN Headache/Pain Mild Scale (1-3) Al Hydroxide/Mg Hydroxide 30 ml 09/13/20 21:57 Magnesium Hydrox/Alum Hydrox 30 Ml Oral.Susp PO Q6H PRN Heartburn/Nausea Aripiprazole 10 mg 09/13/20 20:10 09/20/20 08:36 Aripiprazole 10 Mg Tablet PO 10 mg DAILY LUIS ALBERTO Administration Benztropine Mesylate 0.5 mg 09/13/20 20:09 09/13/20 20:42 Benztropine Mesylate 0.5 Mg Tablet PO 0.5 mg TID PRN Administration Extrapyramidal Effects Hydroxyzine HCl 25 mg 09/13/20 21:57 Hydroxyzine Hcl 25 Mg Tablet PO BEDTIME PRN Anxiety Lamotrigine 25 mg 09/13/20 21:00 09/19/20 21:33 Lamotrigine 25 Mg Tablet PO 25 mg BEDTIME LUIS ALBERTO Administration Magnesium Hydroxide 30 ml 09/13/20 21:57 Milk Of Magnesia 30 Ml Oral.Susp PO DAILY PRN Constipation Olanzapine 5 mg 09/13/20 21:00 09/19/20 21:33 Olanzapine 5 Mg Tablet PO 5 mg BEDTIME LUIS ALBERTO Administration Olanzapine 10 mg 09/13/20 22:52 09/14/20 16:13 Olanzapine Odt 10 Mg Tab.Rapdis TRANSLINGU 10 mg BID PRN Administration Psychosis Pharmacy Consult 1 each 09/13/20 15:58 Consult Rx Perform Med Rec MISCELLANE ONCE PRN Consult order Trazodone HCl 50 mg 09/13/20 21:57 Trazodone Hcl 50 Mg Tablet PO BEDTIME PRN Insomnia Vitamin D 25 mcg 09/13/20 20:15 09/20/20 08:40 Cholecalciferol (Vitamin D3) 25 Mcg Tablet PO Not Given DAILY LUIS ALBERTO Allergies Allergies Allergy/AdvReac Type Severity Reaction Status Date / Time divalproex sodium Allergy Intermediate UNKNOWN Verified 05/16/20 06:32 [From [facility]] Assessment & Plan Assessment & Plan (1) Noncompliance with medication regimen: Status: Acute Code(s): Z91.14 - Patient's other noncompliance with medication regimen (2) Schizophrenia: Qualifiers: Schizophrenia type: undifferentiated schizophrenia Qualified Code(s): F20.3 - Undifferentiated schizophrenia Status: Acute Code(s): F20.9 - Schizophrenia, unspecified (3) Asperger's disorder: Status: Acute Code(s): F84.5 - Asperger's syndrome Assessment and Plan: The patient is a young black male with a long history of psychosis, admitted several times for non-compliance. Plan: Re-start medications. Affidavit for extension of Hernandez and medical certificate was done Greater than 50% of the session was spent on counseling and/or coordination of care Reason for contiued inpatient stay Substantial Risk for: inability to function, rapid decompensation and med/psych decompensation
[2020-09-20 18:00] VITALS: BP 149/77; PULSE 80; TEMP 36.5; O2SAT 98
[2020-09-20] MEDS: OLANZapine 5 MG TABLET PO (21:39)
[2020-09-20] MEDS: lamoTRIgine 25 MG TABLET PO (21:39)
[2020-09-21 06:00] VITALS: BP 135/83; PULSE 73; RESP 16; TEMP 36; O2SAT 98
[2020-09-21] MEDS: ARIPiprazole 10 MG TABLET PO (08:27)
--- NOTE | 2020-09-21 09:07 | P.DS_ITS ---
DS: Providers Provider Date of Service: 09/21/20 Date of admission: 09/13/20 20:59 Date of discharge: 09/21/20 Primary care physician: [facility] Attending physician on discharge: Angelo Navas DS: Diagnosis Discharge Diagnosis (1) Noncompliance with medication regimen: Status: Acute (2) Schizophrenia: Status: Acute Problem details: The patient is a 25 yo male brought to the ER via ambulance with symptoms of fear, paranoia, delusions of persecution. He was readmitted since he was non- compliant with treatment after discharge a few days ago. This is his 3rd admission for the same reason. His mother reported that he became disorganized, delusional, with the idea that he will win the [employer] Prize for a new relativity theory that I came up . He is delusional with no insight into his condition but he was compliant with treatment. He signed a 3 day notice letter and there were no safety concerns while in the unit. (3) Asperger's disorder: Status: Acute Problem details: diagnosed in childhood DS: Medications Discharge Medications Home Medications: Previous Rx's Medication Instructions Recorded benztropine 0.5 mg PO TID PRN #90 tab 08/04/20 aripiprazole 10 mg PO DAILY 30 Days #30 tab 08/24/20 cholecalciferol (vitamin D3) 25 mcg PO DAILY 30 Days #30 tab 08/24/20 lamotrigine 25 mg PO BEDTIME 30 Days #30 tab 08/24/20 olanzapine 5 mg PO BEDTIME 30 Days #30 tab 08/24/20 Discharge Plan Discharge Patient Disposition: Home, Self-Care Discharge Diagnosis: Schizophrenia Referrals: Pt refused outpatient referrals. [Other] [place] [Primary Care Provider] - 1 Week Discharge Medications: New benztropine 0.5 mg Tablet 0.5 mg PO TID PRN (Reason: Extrapyramidal Effects) 30 Days Qty: 90 RF: 0 olanzapine 5 mg Tablet 5 mg PO BEDTIME 30 Days Qty: 30 RF: 0 lamotrigine 25 mg Tablet 25 mg PO BEDTIME 30 Days Qty: 30 RF: 0 aripiprazole 10 mg Tablet 10 mg PO DAILY 30 Days Qty: 30 RF: 0 cholecalciferol (vitamin D3) 25 mcg (1,000 unit) Tablet 25 mcg PO DAILY 30 Days Qty: 30 RF: 0 Continued benztropine 0.5 mg Tablet 0.5 mg PO TID PRN (Reason: Extrapyramidal Effects) Qty: 90 RF: 0 olanzapine 5 mg Tablet 5 mg PO BEDTIME 30 Days Qty: 30 RF: 0 lamotrigine 25 mg Tablet 25 mg PO BEDTIME 30 Days Qty: 30 RF: 0 cholecalciferol (vitamin D3) 25 mcg (1,000 unit) Tablet 25 mcg PO DAILY 30 Days Qty: 30 RF: 0 aripiprazole 10 mg Tablet 10 mg PO DAILY 30 Days Qty: 30 RF: 0 Discharge Orders: Discharge Order (Routine); Ordered 09/21/20 Ordered By: Angelo Navas Activity on Discharge: As tolerated Stand Alone Forms: Patient Portal Discharge page Care Plan Goals: Continue with outpatient treatment Health Concerns: None at this moment Plan of Treatment: Keep with outpatient providers Assessment: Young adult black male with Schizophrenia and Aspergers, with institutionalization since a teenager for psychosis, readmitted for non-co mpliance Mental Status Exam Mental Status Exam Patient Appearance: Well Grooomed Patient Orientation: Person, Place, Time and Situation Level of Consciousness: Awake and Appropriate Patient Behavior: Appropriate Mood Description: Calm Affect Description: Constricted Patient Cognition Impaired: No Ability to Follow Directions: Good Speech Pattern: Clear Memory Description: Intact Hallucinations: None Delusions: Grandiose (regarding winning the [employer] Prize on Economics) Thought Process: Goal Oriented Thought Content: positive for Intact Judgement: Fair DS: Summary Hospital Course Hospital Course: As usual, he was delusional and grandiose but no violence or unsafe behaviors, he was restarted with his regular medications. I offered him Abilify Maintenna but later he refused IM. He signed a a 3 day notice letter. His mother, who is his legal guardian, asked for affidavits for Hernandez and expansion of her guardianship. There were no safety concerns, again, I recommended the patietn to follow treatment and even offer him Abilify Maintenna but he refused since he wanted to be discharged as soon as possible. Since there were no safety concerns, he was discharged as usual. Time spent discussing smoking cessation with patient: 3 to 10 minutes Status at Discharge Functional status at discharge: independent ambulation Overall status at discharge: patient is back to baseline Time Spent with Patient Time attestation: Total time spent providing and/or coordinating discharge services: Time spent: Less than 30 minutes
== END 2020-09-21 13:00 | disposition home or self-care (01) | DRG 750 ==
LOC: HO.ED 20:47 → HO.PM5 21:08
PROVIDERS: Admitting Provider Clinical Nurse Specialist Psychiatric/Mental Health; Emergency Provider Emergency Medicine; Visit Provider Psychiatry & Neurology Psychiatry
DX: F20.9 Schizophrenia, unspecified (principal); Z91.14 Patient's other noncompliance with medication regimen; F84.5 Asperger's syndrome; Z20.822 Contact with and (suspected) exposure to COVID-19; Z79.899 Other long term (current) drug therapy
CPT/HCPCS: 36415; 80048; 80076; 85025; 87635; 93005; 99285

== ENCOUNTER 2020-10-17 08:42 | Outpatient (REF) | payer MEDICAID, SELFPAY ==
[2020-10-17 09:25] LABS: COVID-19 Test Negative (Negative)
== END 2020-10-17 08:43 | disposition home or self-care (01) ==
LOC: HO.LAB 08:42
PROVIDERS: PCP Internal Medicine; Visit Provider Internal Medicine
DX: Z20.822 Contact with and (suspected) exposure to COVID-19 (principal)
CPT/HCPCS: 36415; 87635; C9803